=== PATIENT | female | born 1945 | race Hispanic/Latino ===

== ENCOUNTER 2018-08-15 12:20 | Emergency (ER) | payer MEDICARE ==
[~2018-08-15] VITALS: Ht 154.9 cm; Wt 56.7 kg
[~2018-08-15 12:20] MED LIST: ADULT LOW DOSE81 MG PO; AMARYL2 MG PO; FOLIC ACID0.4 MG PO; GLUCOPHAGE XR500 MG PO; LEVOXYL50 MCG PO; LOSARTAN POTASS25 MG PO; METHOTREXATE2.5 M1 PO; NORVASC10 MG PO; PLAQUENIL200 MG PO
[2018-08-15] MEDS ORDERED: SODIUM CHLORIDE 0.9% 1000ML 1,000 ML IV STA (13:32)
[2018-08-15 14:20] LABS: BASOPHILS % 0.4 % (0.0-1.0); EOSINOPHILS # (AUTO) 0.1 (0.0-0.4); EOSINOPHILS % 0.9 % (0.0-6.0); HEMOGLOBIN 12.1 g/dL (12.0-16.0); LYMPHOCYTES # (AUTO) 1.1 (1.0-3.2); LYMPHOCYTES % 10.6 % (18.0-39.1); MEAN CORPUSCULAR HEMOGLOBIN 31.2 pg (28-32); MEAN CORPUSCULAR HGB CONC 34.6 g/dL (31-35); MEAN CORPUSCULAR VOLUME 90.2 fL (81-99); MONOCYTES # (AUTO) 0.7 (0.2-0.8); MONOCYTES % 7.5 % (4.4-11.3); NEUTROPHILS # (AUTO) 7.9 (2.1-6.9); NEUTROPHILS % 79.4 % (38.7-80.0); PLATELET COUNT 351 x10e3/uL (140-360); RED BLOOD COUNT 3.88 x10e6/uL (3.6-5.1); RED CELL DISTRIBUTION WIDTH 13.2 % (11.7-14.4)
[2018-08-15 14:24] LABS: INR 0.9; PARTIAL THROMBOPLASTIN TIME 24.6 seconds (23.8-35.5)
[2018-08-15 14:25] LABS: CLARITY,URINE SL CLOUDY (CLEAR); COLOR,URINE YELLOW (YELLOW)
[2018-08-15 14:26] LABS: BILIRUBIN,URINE NEGATIVE (NEGATIVE); KETONES,URINE NEGATIVE (NEGATIVE); LEUKOCYTE ESTERASE ,URINE TRACE (NEGATIVE); NITRITE,URINE NEGATIVE (NEGATIVE); PROTEIN,URINE DIPSTICK 1+ (NEGATIVE); URINE UROBILINOGEN 0.2 mg/dL (0.2 - 1)
[2018-08-15 14:35] LABS: ALANINE AMINOTRANSFERASE 69 IU/L (0-55); ALBUMIN 3.7 g/dL (3.5-5.0); ALBUMIN/GLOBULIN RATIO 1.1 (0.8-2.0); ALKALINE PHOSPHATASE 49 IU/L (40-150); AMYLASE 90 U/L (25-125); ANION GAP 12.8 mmol/L (8-16); BLOOD UREA NITROGEN 15 mg/dL (7-26); BUN/CREATININE RATIO 19 (6-25); CALCIUM 9.8 mg/dL (8.4-10.2); CARBON DIOXIDE 25 mmol/L (22-29); CHLORIDE 102 mmol/L (98-107); CREATININE, SERUM 0.77 mg/dL (0.57-1.11); EST GLOMERULAR FILTRATION RATE > 60 ML/MIN (60-); GLUCOSE 218 mg/dL (74-118); LIPASE 56 U/L (8-78); MAGNESIUM 1.8 MG/DL (1.3-2.1); POTASSIUM 3.8 mmol/L (3.5-5.1); SODIUM 136 mmol/L (136-145)
[2018-08-15 14:38] LABS: BACTERIA,URINE FEW /HPF; EPITHELIAL CELLS,URINE FEW /LPF; HYALINE CASTS 0-1 (0-1); WBC,URINE (MAN) 0-5 /HPF (0-5)
--- NOTE | 2018-08-15 16:18 | Diagnostic Imaging Report ---
EXAMINATION: CT of the chest, abdomen and pelvis with contrast. TECHNIQUE: Helical CT images of the chest, abdomen and pelvis were performed from the lung apices to the lesser trochanters after the intravenous administration of 150 cc of Isovue 300 and the oral administration of none. Coronal and sagittal reformatted images were obtained. Dose modulation, iterative reconstruction, and/or weight based adjustment of the mA/kV was utilized to reduce the radiation dose to as low as reasonably achievable. COMPARISON: None. CLINICAL HISTORY:Trauma, fall DISCUSSION: CHEST: LINES/TUBES: None. LUNGS AND AIRWAYS: Lung base atelectasis. PLEURA: The pleural spaces are clear. HEART AND MEDIASTINUM: The thyroid gland is normal. The heart and pericardium are within normal limits. LYMPH NODES: No significant mediastinal, hilar or axillary lymphadenopathy is seen. BONES AND SOFT TISSUES: No bony destructive lesions. No soft tissue abnormalities. ABDOMEN/PELVIS: HEPATOBILIARY:No focal hepatic lesions. No biliary ductal dilation. The gallbladder is normal. SPLEEN: No splenomegaly. PANCREAS: No focal masses or ductal dilatation. ADRENALS: No adrenal nodules. KIDNEYS/URETERS: 4 mm calculus in the right kidney. No obstruction. PELVIC ORGANS/BLADDER: The bladder is normal. PERITONEUM/RETROPERITONEUM: No free air or fluid. LYMPH NODES: No intra-abdominal,retroperitoneal, pelvic or inguinal lymphadenopathy. VESSELS: The celiac trunk,superior and inferior mesenteric and bilateral renal arteries are patent The portal, superior mesenteric and splenic veins are patent. GI TRACT: No distention or wall thickening. BONES AND SOFT TISSUES: Remote inferior endplate compression deformity of L1 degenerative anterolisthesis of L5 on S1. Lower lumbar facet arthrosis. Remote healed fracture of the left inferior and superior pubic ramus. IMPRESSION: No acute CT finding. Signed by: Dr. Sacha Richardson M.D. on 08/15/2018 4:15 PM
--- NOTE | 2018-08-15 16:31 | Diagnostic Imaging Report ---
Examination: CT head without contrast Clinical Indication: Fall with head injury. Technique: Transaxial noncontrast images from the skull base through the vertex were obtained. Sagittal and coronal reformatted images were done. Dose modulation, iterative reconstruction, and/or weight based adjustment of the mA/kV was utilized to reduce the radiation dose to as low as reasonably achievable. Comparison: Head CT performed January 13, 2014. Findings: Scalp: No abnormalities. Bones: Intact. No fractures. No blastic or lytic lesions. Brain sulci: Appropriate for patient's age. Ventricles: Normal in size and configuration. No hydrocephalus. Extra-axial space: No new acute hemorrhage. Interval resolution of previous left superior frontal sulcus subarachnoid hemorrhage. Parenchyma: No masses, hemorrhage, or acute or chronic cortical based vascular insults. Suprasellar region: No abnormalities. Craniocervical junction: The foramen magnum is patent. No Chiari one malformation. Incidental findings: Atherosclerotic calcification of the cavernous and supraclinoid internal carotid arteries. Impression: 1. No new acute intracranial hemorrhage. 2. Interval resolution of previous left superior frontal sulcus subarachnoid hemorrhage when compared to prior head CT performed January 13, 2014. Signed by: Dr. Donna Robledo M.D. on 08/15/2018 4:27 PM
--- NOTE | 2018-08-15 16:34 | Diagnostic Imaging Report ---
Examination: CT Face without Contrast History:Fall with facial injury Comparison studies: None Technique: Axial images were obtained through the maxillofacial region. Coronal and sagittal reconstructions obtained from the axial data. Dose modulation, iterative reconstruction, and/or weight based adjustment of the mA/kV was utilized to reduce the radiation dose to as low as reasonably achievable. Intravenous contrast: None Findings: Soft tissues: No abnormalities. Bones: No fractures or bony abnormalities. Orbits: Globes: Intact with bilateral slitlike with the lenses. Extra or intraconal abnormalities: None. Paranasal sinuses: Clear. Nasal cavity: Patent. No septal deviation. IMPRESSION: No fracture. Signed by: Dr. Donna Robledo M.D. on 08/15/2018 4:30 PM
[2018-08-15 17:10] VITALS: BP 151/71
[2018-08-15] MEDS ORDERED: SODIUM CHLORIDE 0.9% 50ML 50 ML ONE (22:35)
[2018-08-15] MEDS ORDERED: IOPAMIDOL 370 MG/ML 200 ML INFUS..BTL INJ ONE (22:35)
== END 2018-08-15 17:41 | disposition home or self-care (01) ==
LOC: ER 12:20
DX: S00.33XA Contusion of nose, initial encounter (principal); S70.01XA Contusion of right hip, initial encounter; S80.211A Abrasion, right knee, initial encounter; R10.9 Unspecified abdominal pain; W18.30XA Fall on same level, unspecified, initial encounter; Y92.512 Supermarket, store or market as the place of occurrence of the external cause
CPT/HCPCS: 36415; 70450; 70486; 71260; 74177; 80053; 81001; 82150; 83690; 83735; 85025; 85610; 85730; 99284; Q9967

== ENCOUNTER → 2019-10-23 | Day surgery (SDC) | payer MEDICARE ==
--- NOTE | 2019-10-21 10:15 | NUR ---
Checked patient's temperature via skin probe: 97.3F. Patient denies being out of the country or out of state in the last 14 days. Patient denies being around anyone who has been out of the country or out of state in the last 14 days. Patient denies being around anyone who has been exposed or diagnosed with romero virus in the last 14 days. Patient denies new onset fever, cough, or shortness of breath in the last 14 days.
[2019-10-21 11:54] LABS: BASOPHILS # (AUTO) 0.1 (0.0-0.1); BASOPHILS % 0.8 % (0.0-1.0); EOSINOPHILS # (AUTO) 0.1 (0.0-0.4); EOSINOPHILS % 1.4 % (0.0-6.0); HEMOGLOBIN 11.1 g/dL (12.0-16.0); LYMPHOCYTES # (AUTO) 1.8 (1.0-3.2); LYMPHOCYTES % 28.3 % (18.0-39.1); MEAN CORPUSCULAR HEMOGLOBIN 30.5 pg (28-32); MEAN CORPUSCULAR HGB CONC 33.6 g/dL (31-35); MEAN CORPUSCULAR VOLUME 90.7 fL (81-99); MONOCYTES # (AUTO) 0.4 (0.2-0.8); NEUTROPHILS # (AUTO) 3.9 (2.1-6.9); NEUTROPHILS % 62.3 % (38.7-80.0); PLATELET COUNT 289 x10e3/uL (140-360); RED BLOOD COUNT 3.64 x10e6/uL (3.6-5.1); RED CELL DISTRIBUTION WIDTH 12.7 % (11.7-14.4)
[2019-10-21 12:15] LABS: ALANINE AMINOTRANSFERASE 11 IU/L (0-55); ALBUMIN 3.7 g/dL (3.5-5.0); ALBUMIN/GLOBULIN RATIO 1.1 (0.8-2.0); ALKALINE PHOSPHATASE 41 IU/L (40-150); BLOOD UREA NITROGEN 12 mg/dL (7-26); BUN/CREATININE RATIO 18 (6-25); CALCIUM 9.6 mg/dL (8.4-10.2); CARBON DIOXIDE 21 mmol/L (22-29); CHLORIDE 106 mmol/L (98-107); CREATININE, SERUM 0.67 mg/dL (0.57-1.11); EST GLOMERULAR FILTRATION RATE > 60 ML/MIN (60-); GLUCOSE 102 mg/dL (74-118); SODIUM 136 mmol/L (136-145)
--- NOTE | 2019-10-21 16:35 | NUR ---
Dr. Espino notified of patient's allergy to shrimp. No new orders at this time.
[2019-10-23] VITALS (14 sets, daily range): BP systolic 119–156; BP diastolic 53–77
[~2019-10-23] VITALS: Ht 151.1 cm; Wt 38.6 kg
[~2019-10-23] MED LIST changes: +CALCIUM PO; +FAMOTIDINE20 MG PO; +FENTANYL CITRATE/PF 100MCG/2 ML INJ ONE; +HEPARIN SOD (PORCINE) 1000 UNIT/ML 30ML ONE; +HEPARIN SOD/SOD CHLORIDE 2,000 ML ONE; +IOPAMIDOL 300MG/ML 100 ML INFUS..BTL IV ONE; +LIDOCAINE HCL 2% LOCAL 20 ML VIAL ONE; +LOPERAMIDE2 MG PO; +METFORMIN HCL500 MG PO; +MIDAZOLAM HCL 2 MG/2 ML VIAL ONE; +MUPIROCIN22 GM TOP; +NITROGLYCERIN/D5W 200 MCG/ML 250 ML ONE; +OYSTER SHELL C1 EA12 PO; +SODIUM CHLORIDE 0.9% 1000ML 1,000 ML ONE; +TYLENOL EXTRA500 MG PO; +VITAMIN D32000 UNI2 PO
--- OUTSIDE RECORDS SUMMARY | 2019-10-23 06:37 | XMS REPORT ---
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 Allergies, Adverse Reactions, Alerts This patient has no known allergies or adverse reactions. Medications This patient has no known medications. Results Test Description Test Time Test Comments Text Results Atomic Results Result Comments CT ABDOMEN/PELVIS W 2018-08-15 16:37:00 [place] [address] Patient Name: LANI LITTLE MR #: [id number] : 1945 Age/Sex: 73/F Req #: [id number] Adm Physician: Ordered by: SHATNHI GRAY MD Report #: [id number] Location: ER Room/Bed: Procedure: [id number] CT/CT ABDOMEN/PELVIS W Exam Date: 08/15/18 Exam Time: 1520 REPORT STATUS: Signed EXAMINATION: CT of the chest, abdomen and pelvis with daniel balbuena. TECHNIQUE: Helical CT images of the chest, abdomen and pelvis were performed from the lung apices to the lesser trochanters after the intravenous administration of 150 cc of Isovue 300 and the oral administration of none. Coronal and sagittal reformatted images were obtained. Dose modulation, iterative reconstruction, and/or weight based adjustment of the mA/kV was utilized to reduce the radiation dose to as low as reasonably achievable. COMPARISON: None. CLINICAL HISTORY:Trauma, fall DISCUSSION: CHEST: LINES/TUBES: None. LUNGS AND AIRWAYS: Lung base atelectasis. PLEURA: The pleural spaces are clear. HEART AND MEDIASTINUM: The thyroid gland is normal. The heart and pericardium are within normal limits. LYMPH NODES: No significant mediastinal, hilar or axillary lymphadenopathy is seen. BONES AND SOFT TISSUES: No bony destructive lesions. No soft tissue abnormalities. ABDOMEN/PELVIS: HEPATOBILIARY:No focal hepatic lesions. No biliary ductal dilation. The gallbladder is normal. SPLEEN: No splenomegaly. PANCREAS: No focal masses or ductal dilatation. ADRENALS: No adrenal nodules. KIDNEYS/URETERS: 4 mm calculus in the right kidney. No obstruction. PELVIC ORGANS/BLADDER: The bladder is normal. PERITONEUM/RETROPERITONEUM: No free air or fluid. LYMPH NODES: No intra-abdominal,retroperitoneal, pelvic or inguinal lymphadenopathy. VESSELS: The celiac trunk,superior and inferior mesenteric and bilateral renal arteries are patent The portal, s uperior mesenteric and splenic veins are patent. GI TRACT: No distention or wall thickening. BONES AND SOFT TISSUES: Remote inferior endplate compression deformity of L1 degenerative anterolisthesis of L5 on S1. Lower lumbar facet arthrosis. Remote healed fracture of the left inferior and superior pubic ramus. IMPRESSION: No acute CT finding. Signed by: Dr. Ameena Aguirre M.D. on 08/15/2018 4:38 PM Dictated By: AMEENA AGUIRRE MD 1638 Transcribed By: JILLIAN on 08/15/18 1638 COPY TO: SHANTHI GRAY MD CT MAXIO FAC/PARANAS WO 2018-08-15 16:28:00 [place] [address] Patient Name: ALNI LITTLE MR #: [id number] : 1945 Age/Sex: 73/F Req #: [id number] Adm Physician: Ordered by: SHANTHI GRAY MD Report #: [id number] Location: ER Room/Bed: Procedure: [id number] CT/CT MAXIO FAC/PARANAS WO Exam Date: 08/15/18 Exam Time: 1520 REPORT STATUS: Signed Examination: CT Face without Contrast History:Fall with facial injury Comparison studies: None Technique: Axial images were obtained through the maxillofacial region. Coronal and sagittal reconstructions obtained from the axial data. Dose modulation, iterative reconstruction, and/or weight based adjustment of the mA/kV was utilized to reduce the radiation dose to as low as reasonably achievable. Intravenous contrast: None Findings: Soft tissues: No abnormalities. Bones: No fractures or bony abnormalities. Orbits: Globes: Intact with bilateral slitlike with the lenses. Extra or intraconal abnormalities: None. Paranasal sinuses: Clear. Nasal cavity: Patent. No septal deviation. IMPRESSION: No fracture. Signed by: Dr. Donna Pemberton M.D. on 08/15/2018 4:30 PM Dictated By: DONNA ADAMS MD 1630 Transcribed By: JILLIAN on 08/15/18 1630 COPY TO: SHANTHI GRAY MD CT BRAIN WO 2018-08-15 16:23:00 [place] [address] Patient Name: LANI LITTLE MR #: [id number] : 1945 Age/Sex: 73/F Req #: [id number] Adm Physician: Ordered by: SHANTHI GRAY MD Report #: [id number] Location: Room/Bed: Procedure: [id number] CT/CT BRAIN WO Exam Date: 08/15/18 Exam Time: 1520 REPORT STATUS: Signed Examination: CT head without contrast Clinical Indication: Fall with head injury. Technique: Transaxial noncontrast images from the skull base through the vertex were obtained. Sagittal and coronal reformatted images were done. Dose modulation, iterative reconstruction, and/or weight based adjustment of the mA/kV was utilized to reduce the radiation dose to as low as reasonably achievable. Comparison: Head CT performed January 13, 2014. Findings: Scalp: No abnormalities. Bones: Intact. No fractures. No blastic or lytic lesions. Brain sulci: Appropriate for patient's age. Ventricles: Normal in size and configuration. No hydrocephalus. Extra- axial space: No new acute hemorrhage. Interval resolution of previous left superior frontal sulcus subarachnoid hemorrhage. Parenchyma: No masses, hemorrhage, or acute or chronic cortical based vascular insults. Suprasellar region: No abnormalities. Craniocervical junction: The foramen magnum is patent. No Chiari one malformation. Incidental findings: Atherosclerotic calcification of the cavernous and supraclinoid internal carotid arteries. Impression: 1. No new acute intracranial hemorrhage. 2. Interval resolution of previous left superior frontal sulcus subarachnoid hemorrhage when compared to prior head CT performed January 13, 2014. Signed by: Dr. Donna Pemberton M.D. on 08/15/2018 4:27 PM Dictated By: DONNA ADAMS MD 1627 Transcribed By: JILLIAN on 08/15/18 1627 COPY TO: SHANTHI GRAY MD CT CHEST W 2018-08-15 16:04:00 [place] [address] Patient Name: LANI LITTLE MR #: [id number] : 1945 Age/Sex: 73/F Req #: [id number] Adm Physician: Ordered by: SHANTHI GRAY MD Report #: [id number] Location: Room/Bed: Procedure: [id number] CT/CT CHEST W Exam Date: 08/15/18 Exam Time: 1520 REPORT STATUS: Signed EXAMINATION: CT of the chest, abdomen and pelvis with contrast. TECHNIQUE: Helical CT images of the chest, abdomen and pelvis were performed from the lung apices to the lesser trochanters after the intravenous administration of 150 cc of Isovue 300 and the oral administration of none. Coronal and sagittal reformatted images were obtained. Dose modulation, iterative reconstruction, and/or weight based adjustment of the mA/kV was utilized to reduce the radiation dose to as low as reasonably achievable. COMPARISON: None. CLINICAL HISTORY:Trauma, fall DISCUSSION: CHEST: LINES/TUBES: None. LUNGS AND AIRWAYS: Lung base atelectasis. PLEURA: The pleural spaces are clear. HEART AND MEDIASTINUM: The thyroid gland is normal. The heart and pericardium are within normal limits. LYMPH NODES: No significant mediastinal, hilar or axillary lymphadenopathy is seen. BONES AND SOFT TISSUES: No bony destructive lesions. No soft tissue abnormalities. ABDOMEN/PELVIS: HEPATOBILIARY:No focal hepatic lesions. No biliary ductal dilation. The gallbladder is normal. SPLEEN: No splenomegaly. PANCREAS: No focal masses or ductal dilatation. ADRENALS: No adrenal nodules. KIDNEYS/URETERS: 4 mm calculus in the right kidney. No obstruction. PELVIC ORGANS/BLADDER: The bladder is normal. PERITONEUM/RETROPERITONEUM: No free air or fluid. LYMPH NODES: No intra-abdominal,retroperitoneal, pelvic or inguinal lymphadenopathy. VESSELS: The celiac trunk,superior and inferior mesenteric and bilateral renal arteries are patent The portal, superior mesenteric and splenic veins are patent. GI TRACT: No distention or wall thickening. BONES AND SOFT TISSUES: Remote inferior endplate compression deformity of L1 degenerative anterolisthesis of L5 on S1. Lower lumbar facet arthrosis. Remote healed fracture of the left inferior and superior pubic ramus. IMPRESSION: No acute CT finding. Signed by: Dr. Ameena Aguirre M.D. on 08/15/2018 4:15 PM Dictated By: AMEENA AGUIRRE MD 1611 Transcribed By: JILLIAN on 08/15/18 1613 COPY TO: SHANTHI GRAY MD
--- NOTE | 2019-10-23 08:30 | NUR ---
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 Received pt to rm #9, Identiferx2. Report from GUILLERMO Desir. Ox4, back to baseline orientation. Respiration shallow and regular on room air. V/S stable Monitor stable. Extremities warm to touch. Rt groin dressing dry and intact.Pedal pulses PT/DP minimal rt foot .Cap fill brisk < 3 sec. Preprocedural access: right groin site. Downtime 1pm.dc home at 2pm significant other aware to be at turn around in front of hospiital 145pm. No gross issues pain,pallor,pressure or dysthymia. Skin warm and dry integrity appears D/I.. IV 20g to left handt 100cche via conroller. Presents healthy w/o s/s of infiltration or complaint. Abdomen soft and supple. pt offered toileting, denies need to urinate or defecate. No personal affects with patient.Bagged clothes at BS and labeled. No Family, Ricca phoned and notified of Pickup time per pt. Pt verbalizes understanding of POC. Currently w/o complaint of pain or need. ds/rn
--- NOTE | 2019-10-23 10:39 | Operative Report ---
DATE OF PROCEDURE: 10/23/2019 SURGEON: Rui Espino MD INDICATION: Peripheral arterial disease, critical limb ischemia urgent procedure, [place] 6. PROCEDURES PERFORMED: 1. Abdominal aortogram. 2. Bilateral lower extremity angiograms. 3. Third-order catheter placement in the right femoral artery to left superficial femoral artery. COMPLICATIONS: None. RECOMMENDATIONS: Unable to intervene surgically or endovascular due to severe obstructive peripheral arterial disease. DESCRIPTION OF PROCEDURE: Access was obtained in the right femoral artery. A 6-[place] sheath was placed. Abdominal aortogram demonstrated mild disease, abdominal aorta bilateral femoral arteries, bilateral popliteal arteries occluded, very trivial runoff from the and highly diseased peroneal artery. No targets for intervention. Sheath removed under manual pressure. The patient discharged home same day. Rui Espino MD KSB/MODL /[id number]
--- NOTE | 2019-10-23 14:00 | NUR ---
1400pm LABEL CODER RECOVERY DISCHARGE NURSING NOTE Pt meets DC criteria. Rt groin assessed for s/s of complication and presence of hematoma. Skin warm, dry, no discolor, and pulses present. IV removed form rt hand. Distal tip appears intact. VS WNL. Pt denies pain, sob, or need at this time.Significant other at bedside at [facility] emergency department and dc teaching done. Review of discharge paperwork and follow up instructions. verbalized understanding. Pt to wheelchair and transported to front of hospital. Transferred to private vehicle under own strength w/o incident with DC paperwork in hand. - ds/rn
== END | disposition home or self-care (01) ==
LOC: CATH LAB 06:20
PROVIDERS: ATTEND Internal Medicine Interventional Cardiology
DX: I70.203 Unspecified atherosclerosis of native arteries of extremities, bilateral legs (principal); E11.52 Type 2 diabetes mellitus with diabetic peripheral angiopathy with gangrene; E11.621 Type 2 diabetes mellitus with foot ulcer; I99.8 Other disorder of circulatory system; Z88.1 Allergy status to other antibiotic agents; Z79.84 Long term (current) use of oral hypoglycemic drugs; Z82.49 Family history of ischemic heart disease and other diseases of the circulatory system; Z83.3 Family history of diabetes mellitus
CPT/HCPCS: 36200; 36415; 75625; 75716; 80053; 85025; C1769 ×2; J1644; J2001; J2250; J3010; J7030; Q9967; 75630; 99152; 99153

== ENCOUNTER 2020-01-22 15:35 | Inpatient (IN) | payer MEDICARE, OTHER ==
[~2020-01-22] VITALS: Ht 151.1 cm; Wt 38.6 kg
[~2020-01-22 15:35] MED LIST changes: -FENTANYL CITRATE/PF 100MCG/2 ML INJ ONE; -HEPARIN SOD (PORCINE) 1000 UNIT/ML 30ML ONE; -HEPARIN SOD/SOD CHLORIDE 2,000 ML ONE; -IOPAMIDOL 300MG/ML 100 ML INFUS..BTL IV ONE; -LIDOCAINE HCL 2% LOCAL 20 ML VIAL ONE; -MIDAZOLAM HCL 2 MG/2 ML VIAL ONE; -NITROGLYCERIN/D5W 200 MCG/ML 250 ML ONE; -SODIUM CHLORIDE 0.9% 1000ML 1,000 ML ONE
[2020-01-23] VITALS (9 sets, daily range): BP systolic 92–121; BP diastolic 43–81
[2020-01-23] MEDS ORDERED: DEXTROSE 50% SYRINGE 50 ML IV PRN (00:30)
--- NOTE | 2020-01-23 01:00 | NUR ---
Patient is a new admission that arrived via EMS. patient is awake and talking. patient has been transferred into the bed. bed is in the lowest position and call rosales is within reach. will continue to monitor patient.
[2020-01-23] MEDS: LEVOFLOXACIN 500 MG TAB PO SCH ×2 (02:30→23:25)
[2020-01-23] MEDS: HYDROCODONE/APAP 10MG-325MG TAB PO PRN ×4 (02:30→22:31)
[2020-01-23 02:43] LABS: BASOPHILS % 0.6 % (0.0-1.0); EOSINOPHILS # (AUTO) 0.2 (0.0-0.4); EOSINOPHILS % 3.3 % (0.0-6.0); HEMATOCRIT 24.5 % (34.2-44.1); LYMPHOCYTES # (AUTO) 1.4 (1.0-3.2); LYMPHOCYTES % 21.5 % (18.0-39.1); MEAN CORPUSCULAR HEMOGLOBIN 30.1 pg (28-32); MEAN CORPUSCULAR HGB CONC 32.7 g/dL (31-35); MEAN CORPUSCULAR VOLUME 92.1 fL (81-99); MONOCYTES # (AUTO) 0.7 (0.2-0.8); MONOCYTES % 10.9 % (4.4-11.3); NEUTROPHILS # (AUTO) 4.3 (2.1-6.9); NEUTROPHILS % 63.4 % (38.7-80.0); PLATELET COUNT 523 x10e3/uL (140-360); RED BLOOD COUNT 2.66 x10e6/uL (3.6-5.1); RED CELL DISTRIBUTION WIDTH 14.5 % (11.7-14.4)
[2020-01-23 03:02] LABS: ALANINE AMINOTRANSFERASE 8 IU/L (0-55); ALBUMIN 2.4 g/dL (3.5-5.0); ALBUMIN/GLOBULIN RATIO 0.5 (0.8-2.0); ALKALINE PHOSPHATASE 54 IU/L (40-150); ANION GAP 10.3 mmol/L (8-16); BLOOD UREA NITROGEN 5 mg/dL (7-26); BUN/CREATININE RATIO 9 (6-25); CARBON DIOXIDE 25 mmol/L (22-29); CHLORIDE 103 mmol/L (98-107); CREATININE, SERUM 0.57 mg/dL (0.57-1.11); EST GLOMERULAR FILTRATION RATE > 60 ML/MIN (60-); GLUCOSE 109 mg/dL (74-118); POTASSIUM 3.3 mmol/L (3.5-5.1); SODIUM 135 mmol/L (136-145)
--- NOTE | 2020-01-23 06:23 | NUR ---
spoke with doctor Baptiste regarding consult.
--- NOTE | 2020-01-23 06:44 | NUR ---
report given t to day nurse. patient is resting comfortably in bed, bed is low position and call light is within reach.
--- NOTE | 2020-01-23 07:00 | NUR ---
RECEIVED PATIENT AWAKE RESTING IN BED NO S/S OF DISTRESS. BED LOW, WHEELS LOCKED, SIDE RAILS X2. CALL LIGHT IN REACH WILL CONTINUE TO MONITOR PATIENT.
[2020-01-23] MEDS: INSULIN LISPRO 100 UNIT/1 ML 3ML VIAL SQ SCH ×4 (07:30→21:00)
[2020-01-23] MEDS: LOSARTAN POTASSIUM 100 MG TAB PO SCH (09:00)
[2020-01-23] MEDS ORDERED: APIXAB 2.5 MG TABLET PO SCH (09:00)
[2020-01-23] MEDS: ASPIRIN 81 MG ENTERIC COATED PO SCH (09:22)
[2020-01-23] MEDS: PREGABALIN 50 MG CAP PO SCH ×2 (09:22→22:26)
[2020-01-23] MEDS: FOLIC ACID 1 MG TAB PO SCH ×2 (09:22→16:50)
[2020-01-23] MEDS: CLOPIDOGREL BISULFATE 75 MG TAB PO SCH (09:22)
--- NOTE | 2020-01-23 09:29 | History and Physical ---
HISTORY OF PRESENT ILLNESS: This 74-year-old female, who was admitted through the [facility] for status post femoropopliteal bypass and also status post TMA. The patient, however, has continual pain and the patient is admitted to the hospital for possible BKA. PAST MEDICAL HISTORY: History of hypertension, history of hyperlipidemia, history of diabetes mellitus, history of rheumatoid arthritis, history of peripheral arterial dizziness. SOCIAL HISTORY: No EtOH. No IV drug abuse. No history of smoking. MEDICATIONS: She takes at home: 1. Tylenol Extra Strength 500 mg 2 tablets every 6 hours. 2. Amlodipine 10 mg daily. 3. Calcium daily. 4. Vitamin D3. 5. Famotidine 20 mg daily. 6. Folic acid 1 mg b.i.d. 7. Loperamide 2 mg daily as needed. 8. Losartan 25 mg. 9. Metformin 500 mg at bedtime. 10. Mupirocin 22 g ointment as needed twice a day. PAST SURGICAL HISTORY: History of TMA, history of femoropopliteal bypass, and no other surgical history. ALLERGIES: ALLERGIC TO TUNA, ENALAPRIL, SHRIMP, SULFAMETHOXAZOLE, AND TRIMETHOPRIM. REVIEW OF SYSTEMS: Negative for chest pain. No shortness of breath. No nausea, vomiting, or diarrhea. No constipation. No rectal bleeding. No hematochezia. No hematemesis. Positive for pain in the lower back and also a sacral wound pain. PHYSICAL EXAMINATION: GENERAL: The patient is alert and oriented x3, in good spirits. VITAL SIGNS: Temperature is 98.6, pulse of 98, respirations of 19, blood pressure is 106/61, pulse oximetry of 100% on room air. HEENT: Normocephalic, atraumatic. Pupils are reactive. CVS: S1 and S2 normal. ABDOMEN: Soft. LUNGS: Clear to auscultation. EXTREMITIES: Decreased pulses in the left lower extremities. Positive for TMA, status post covered up right lower extremity, decreased pulses, too cachectic. The patient has malnutrition. LABORATORY VALUES: White count of 6.71, hemoglobin of 8.0, hematocrit 24.5, RDW is 14.5. Chemistry; sodium 135, potassium is 3.3, BUN of 5, albumin is 2.4. Serology; coronavirus is pending. ASSESSMENT: Ms. Aniyah Hernandez with: 1. Peripheral arterial disease with cellulitis of left lower extremity, on Levaquin. The patient needs a below-knee amputation, to be evaluated by Surgery. 2. Severe malnutrition. Nutrition consult. 3. Sacral wound ulcer, present on admission. Continue with wound care and need of wound care consult. 4. Diabetes mellitus. 5. Hyperlipidemia. 6. Hypertension. 7. Status post transmetatarsal amputation. PLAN: Again a consult with Dr. Baptiste has been done. We will continue to monitor the patient. Possible BKA on Saturday. Coronavirus is still pending. Further recommendation per clinical course. Again, consults with Surgery, consult with Nutrition, consult with Wound Care. MD ANIL Anderson/MODL /[id number]
--- NOTE | 2020-01-23 15:07 | NUR ---
Nutrition Intervention Note RD Recommendation(s) for Physician: - Continue current diet as ordered - Recommend Ensure Enlive with meals for added nutrition and to promote weight gain The patient meets criteria for unspecified SEVERE protein-calorie malnutrition. Plan of Care: RD following, monitoring for tolerance and adequacy, oral supplement recommendation Nutrition reason for involvement: consult RD Assessment (01/23/20) Pt is a 74 year old female admitted with gangrene foot s/p TMA. Pt reports she has been eating <50% of meals for the past 6 months. Pt mentioned she usually drinks 3 nutrition supplements/day. Pt also declared she had lost weight and used to weigh about 105 lbs a year ago. Pt currently weighs 85 lbs. If accurate, this would be ~20% weight loss in 1 year which is considered to be significant weight loss. No N/V reported. Pt is currently on a regular diet. Recommend Ensure Enlive with meals for added nutrition. Will continue to monitor. Principal Problems/Diagnoses: gangrene foot s/p TMA PMH: hypertension, hyperlipidemia, diabetes, rheumatoid arthritis, peripheral artery disease GI: soft, non-tender round abdomen Skin: sacral wound Labs: (01/23/20) Na 135, K 3.3, BUN 5, Cr 0.57, Glu 109, Ca 9.0 Meds: folic acid, levaquin, insulin lispro, losartan, colace, lipitor Ht: 59.5 inches Wt: 85 lbs BMI: 16.9 kg/m2 (underweight) IBW: 99 lbs Malnutrition Evaluation (01/23/20) The patient meets criteria for unspecified SEVERE protein-calorie malnutrition. Energy intake: <75% of estimated energy requirements for >3 months Weight loss: 20% in 1 year (Chronic) Fat loss: Severe - tricep Muscle loss: Severe lower extremities Supporting Evidence: Fluid accumulation: unable to evaluate Functional Status: unable to evaluate Nutrition Prescription (Diet Order): regular Estimated Nutritional Needs: 7899-6703 calories/day (30-35 kcal/kg CBW) 58-77 g protein/day (1.5-2 g pro/kg CBW) Diet Adequacy: Not meeting calorie needs, Not meeting protein needs Tolerance: Tolerating PO Diet Education Needs Assessment: Diet education not indicated Nutrition Care Level: high Nutrition Diagnosis: Severe malnutrition related to h/o inadequate intake as evidenced by pt meeting <75% of estimated energy needs for > 1 month, 20% weight loss in 1 year, and severe muscle and fat depletion. Goal: Patient will meet 75-100% of estimated needs by follow up Progress: N/A Interventions: -General, healthful diet, Commercial beverage Monitoring/Evaluation: -Total energy intake, Total protein intake, Liquid supplement, Weight change Signed: Gina Knowles RD, LD
[2020-01-23] MEDS: AMLODIPINE BESYLATE 10 MG TAB PO SCH (16:50)
--- NOTE | 2020-01-23 17:38 | NUR ---
SPOKE WITH DR. Carlie RUIZ. HOLD ELIQUIS STARTING TOMORROW MORNING PENDING SURGERY. TYPE AND SCREEN ADDED ON TO TOMORROW MORNING LABS. NEW ORDERS IMPLEMENTED.
[2020-01-23] MEDS ORDERED: POTASSIUM CHLORIDE 20 MEQ TAB CR PO NR (17:45)
[2020-01-23] MEDS ORDERED: AMLODIPINE BESYLATE 10 MG TAB PO SCH (21:00)
[2020-01-23] MEDS: ATORVASTATIN 20 MG TAB PO SCH (22:26)
[2020-01-24] VITALS (9 sets, daily range): BP systolic 107–122; BP diastolic 52–70
[2020-01-24] MEDS: HYDROCODONE/APAP 10MG-325MG TAB PO PRN ×4 (02:45→19:30)
--- NOTE | 2020-01-24 06:51 | NUR ---
report given to day nurse. patient is resting in bed. bed is in lowest position and call light is within reach.
[2020-01-24 07:01] LABS: ANION GAP 10.1 mmol/L (8-16); BLOOD UREA NITROGEN 7 mg/dL (7-26); BUN/CREATININE RATIO 13 (6-25); CALCIUM 9.4 mg/dL (8.4-10.2); CARBON DIOXIDE 25 mmol/L (22-29); CHLORIDE 107 mmol/L (98-107); CREATININE, SERUM 0.54 mg/dL (0.57-1.11); EST GLOMERULAR FILTRATION RATE > 60 ML/MIN (60-); GLUCOSE 99 mg/dL (74-118); POTASSIUM 4.1 mmol/L (3.5-5.1); SODIUM 138 mmol/L (136-145)
[2020-01-24] MEDS: INSULIN LISPRO 100 UNIT/1 ML 3ML VIAL SQ SCH ×4 (07:30→23:07)
[2020-01-24] MEDS: CLOPIDOGREL BISULFATE 75 MG TAB PO SCH (09:00)
[2020-01-24] MEDS: ASPIRIN 81 MG ENTERIC COATED PO SCH (09:02)
[2020-01-24] MEDS: FOLIC ACID 1 MG TAB PO SCH ×2 (09:02→16:18)
[2020-01-24] MEDS: LOSARTAN POTASSIUM 100 MG TAB PO SCH (09:03)
[2020-01-24] MEDS: PREGABALIN 50 MG CAP PO SCH ×2 (09:05→21:36)
--- NOTE | 2020-01-24 09:43 | Progress Note ---
DATE: SUBJECTIVE: The patient is in room 205, came in with left TMA, seen by surgery. Recommendation is left above knee amputation. Currently, the patient is stable and cachectic. OBJECTIVE: VITAL SIGNS: Temperature 98.4, pulse of 96, respirations of 18, blood pressure is 109/65, pulse oximetry of 100%. HEENT: Atraumatic, normocephalic. Pupils reactive. CVS: S1 and S2 normal. CHEST: Very frail. ABDOMEN: Scaphoid abdomen. EXTREMITIES: No clubbing, cyanosis and emaciated and cachectic looking. LABORATORY VALUES: White count from January 22 is normal 6.71. Chemistries from today, sodium 138, potassium 4.1, BUN of 7, creatinine of 0.54, calcium 9.4. ASSESSMENT: Ms. Aniyah Hernandez with: 1. Peripheral arterial disease with cellulitis on Levaquin. 2. Severe malnutrition. 3. Diabetes mellitus. 4. Hyperlipidemia. 5. Hypertension, status post transmetatarsal amputation and also recent femoral-popliteal by Dr. Tolbert. PLAN: Proceed with surgery on Saturday, coronavirus serology is still pending. Further recommendation per clinical course. We will continue to monitor the patient. MD ANIL Anderson/MODL /[id number]
[2020-01-24] MEDS ORDERED: SODIUM CHLORIDE 0.9% 250ML 250 ML IV NR (09:45)
--- NOTE | 2020-01-24 11:16 | NUR ---
blood transfusion started. no reaction at 15min corinne.
--- NOTE | 2020-01-24 14:07 | NUR ---
blood done transfusing with no reaction. vitals stable with no distress.
[2020-01-24] MEDS: AMLODIPINE BESYLATE 10 MG TAB PO SCH (16:18)
[2020-01-24] MEDS ORDERED: POLYETHYLENE GLYCOL 3350 17 GM PACK PO PRN (17:00)
[2020-01-24] MEDS: ATORVASTATIN 20 MG TAB PO SCH (21:36)
[2020-01-24] MEDS: LEVOFLOXACIN 500 MG TAB PO SCH (23:45)
[2020-01-25] VITALS: BP 121/67
[2020-01-25] MEDS: HYDROCODONE/APAP 10MG-325MG TAB PO PRN (00:45)
[2020-01-25 04:00] VITALS: BP 122/62
[2020-01-25 06:45] LABS: BASOPHILS % 0.6 % (0.0-1.0); EOSINOPHILS # (AUTO) 0.3 (0.0-0.4); EOSINOPHILS % 4.1 % (0.0-6.0); HEMATOCRIT 29.2 % (34.2-44.1); HEMOGLOBIN 9.3 g/dL (12.0-16.0); LYMPHOCYTES # (AUTO) 1.3 (1.0-3.2); LYMPHOCYTES % 19.8 % (18.0-39.1); MEAN CORPUSCULAR HEMOGLOBIN 29.3 pg (28-32); MEAN CORPUSCULAR HGB CONC 31.8 g/dL (31-35); MEAN CORPUSCULAR VOLUME 92.1 fL (81-99); MONOCYTES # (AUTO) 0.6 (0.2-0.8); MONOCYTES % 9.1 % (4.4-11.3); NEUTROPHILS # (AUTO) 4.5 (2.1-6.9); NEUTROPHILS % 66.1 % (38.7-80.0); PLATELET COUNT 517 x10e3/uL (140-360); RED BLOOD COUNT 3.17 x10e6/uL (3.6-5.1); RED CELL DISTRIBUTION WIDTH 14.6 % (11.7-14.4)
--- NOTE | 2020-01-25 07:00 | NUR ---
Patient condition throughout the night was stable, patient endorsed to next shift for continuity of care.
[2020-01-25 07:08] LABS: ANION GAP 10.6 mmol/L (8-16); BLOOD UREA NITROGEN 16 mg/dL (7-26); BUN/CREATININE RATIO 26 (6-25); CARBON DIOXIDE 28 mmol/L (22-29); CHLORIDE 102 mmol/L (98-107); CREATININE, SERUM 0.61 mg/dL (0.57-1.11); EST GLOMERULAR FILTRATION RATE > 60 ML/MIN (60-); GLUCOSE 173 mg/dL (74-118); POTASSIUM 4.6 mmol/L (3.5-5.1); SODIUM 136 mmol/L (136-145)
[2020-01-25] MEDS: INSULIN LISPRO 100 UNIT/1 ML 3ML VIAL SQ SCH ×4 (07:30→22:35)
[2020-01-25 08:00] VITALS: BP 108/55
[2020-01-25] MEDS: FOLIC ACID 1 MG TAB PO SCH ×2 (09:00→17:00)
[2020-01-25] MEDS: LOSARTAN POTASSIUM 100 MG TAB PO SCH (09:00)
[2020-01-25] MEDS: ASPIRIN 81 MG ENTERIC COATED PO SCH (09:00)
[2020-01-25] MEDS: CLOPIDOGREL BISULFATE 75 MG TAB PO SCH (09:00)
[2020-01-25] MEDS: PREGABALIN 50 MG CAP PO SCH ×2 (09:00→22:01)
--- NOTE | 2020-01-25 09:38 | NUR ---
PT TO OR VIA BED. BATH GIVEN THIS AM AND PT REMAINS NPO SINCE MN.
[2020-01-25] MEDS ORDERED: NEOSTIGMINE 1 MG/ML 10ML VIAL ONE (12:15)
[2020-01-25] MEDS ORDERED: BACITRACIN ZINC 15 GM OINT ONE (12:16)
[2020-01-25] MEDS ORDERED: HYDROMORPHONE 1MG/1ML INJ ONE (12:45)
--- NOTE | 2020-01-25 14:00 | NUR ---
PT BACK FROM SURGERY AT THIS TIME. DRSG CD&I TO LT STUMP. NO COMPLAIN OF PAIN AT THIS TIME.
[2020-01-25] MEDS ORDERED: PHENYLEPHRINE HCL 1% 10 MG/ML VIAL ONE (14:15)
[2020-01-25] MEDS ORDERED: ONDANSETRON HCL INJ 2MG/ML 2ML 2 MG/ML VIAL ONE (14:15)
[2020-01-25] MEDS ORDERED: PROPOFOL IV EMULSION 10 MG/ML 20 ML VIAL ONE (14:15)
[2020-01-25] MEDS ORDERED: SEVOFLURANE INHAL SOLN 250 ML PEN BTL ONE (14:15)
[2020-01-25] MEDS ORDERED: ETOMIDATE 2 MG/ML 10 ML INJ IV ONE (14:15)
[2020-01-25] MEDS ORDERED: LIDOCAINE HCL 2% LOCAL INJ 5 ML SDV VIAL INJ ONE (14:15)
--- NOTE | 2020-01-25 14:18 | Operative Report ---
DATE OF PROCEDURE: SURGEON: Carlos Enrique Baptiste MD PREOPERATIVE DIAGNOSES: Gangrene of the left foot, non-reconstructible, peripheral vascular disease, status post transmetatarsal amputation, status post peripheral bypass for gangrene of the left foot. PROCEDURE PERFORMED: Right [id number] amputation on the left. INDICATION AND FINDINGS: This is a very pleasant 74-year-old diabetic female with gangrene of the left foot. She had the previously described procedures and now presents with severe pain and gangrene of the left foot. In addition, the patient has several incisions on the left lower extremities as well as an ulcer in the posterior part of the calf. After a long discussion with her, it was decided to proceed [id number] amputation on this high-risk severely malnourished patient. She understood that no guarantees were made regarding surgical results. DESCRIPTION OF PROCEDURE: With the patient lying on the operative table in the supine position after an administration of general anesthesia, she was prepped and draped for repair [id number] amputation. We made flaps above the patella equal in lengths. The anterior and posterior flaps and the dissection was carried down through the skin and subcutaneous tissue. There was good blood flow to the muscle and once we found the femoral vessels, they were tied off with 0 silk and suture transfixed with 2-0 silk. The femoral nerve was transected and then tied with 2-0 Vicryl because it was oozing. This patient had been on Eliquis, then an aspirin and Plavix. We did that and after having transected the muscle groups in both the anterior, lateral, and medial and posterior compartments of the leg, we transected the femoral bone using Gigli saw. We beveled the surface of the femur bone so that the bone was not protruding and slanted backwards and superiorly. After we did that, we used wax to stop any bleeding from the bone and then we closed the stump in two layers using a combination of 0 Vicryl for both the muscles, which were used to cover the femur stump to give protection to the skin. Then, we approximated the fascia and closed over the muscle bulk of the leg with 0 Vicryl sutures also. Then, we closed the flaps with interrupted a combination of 3-0 and 2-0 silk. Sterile dressing was applied. The patient tolerated the procedure well, was taken to recovery room in stable condition. MD SRUTHI Painting/NICK /[id number]
[2020-01-25] MEDS ORDERED: MIDAZOLAM HCL 2 MG/2 ML VIAL ONE (14:59)
[2020-01-25] MEDS ORDERED: FENTANYL CITRATE/PF 100MCG/2 ML INJ ONE (14:59)
[2020-01-25 16:00] VITALS: BP 117/68
[2020-01-25] MEDS: SODIUM CHLORIDE 0.9% 1000ML 1,000 ML IV SCH (16:00)
[2020-01-25] MEDS: HYDROMORPHONE 1MG/1ML INJ IV PRN (16:00)
--- NOTE | 2020-01-25 16:30 | NUR ---
PT CO PAIN MEDICATED WITH DILAUDID ORDER EARLIER PT PAIN LEVEL IS DOWN NOW.
[2020-01-25] MEDS: AMLODIPINE BESYLATE 10 MG TAB PO SCH (17:00)
--- NOTE | 2020-01-25 18:45 | NUR ---
PT TRANSFER TO 113 ORDERED FROM SURGEON. REPORT GIVE TO LYNN LI
--- NOTE | 2020-01-25 19:00 | NUR ---
RECEIVED PATIENT IN BEDSIDE SHIFT REPORT. PATIENT RESTING IN BED AT THIS TIME. MILD-MODERATE PAIN REPORTED, BUT STATES IT IS GETTING BETTER WITH RECENTLY GIVEN PAIN MEDICATION. NO S&S OF DISTRESS NOTED. RUIZ DRAINING CLEAR, YELLOW URINE TO GRAVITY. STATLOCK PLACED AT THIS TIME TO THIGH, BAG HANGING ON SIDE OF BED, OFF OF FLOOR. DRESSING TO LLE C/D/I. NIK WRAP INTACT. NO DRAINAGE NOTED. IV TO L FA 20G RUNNING NS @ 75ML/HR. BED LOCKED IN LOWEST POSITION, SIDE RAIL UPX2, CALL LIGHT IN REACH.
[2020-01-25 20:00] VITALS: BP 143/67
[2020-01-25 20:51] VITALS: BP 143/67
[2020-01-25] MEDS: ATORVASTATIN 20 MG TAB PO SCH (22:01)
[2020-01-25] MEDS: HYDROCODONE/APAP 7.5MG-325MG 1 EA TAB PO PRN (22:02)
[2020-01-26] VITALS (7 sets, daily range): BP systolic 106–138; BP diastolic 40–98
[2020-01-26] MEDS: LEVOFLOXACIN 500 MG TAB PO SCH (00:01)
[2020-01-26] MEDS: ACETAMINOPHEN 325 MG TAB PO PRN (01:10)
[2020-01-26] MEDS: HYDROMORPHONE 1MG/1ML INJ IV PRN ×5 (01:18→20:51)
[2020-01-26] MEDS: SODIUM CHLORIDE 0.9% 1000ML 1,000 ML IV SCH (04:44)
--- NOTE | 2020-01-26 04:45 | NUR ---
PATIENT THOUGHT SHE HAD BM, JUST GAS. CHANGED DIAPER AND ALLEVYN PATCH TO SACRUM AT THIS TIME.
[2020-01-26 04:57] LABS: BASOPHILS % 0.2 % (0.0-1.0); EOSINOPHILS % 0.1 % (0.0-6.0); HEMATOCRIT 25.5 % (34.2-44.1); HEMOGLOBIN 8.3 g/dL (12.0-16.0); LYMPHOCYTES % 8.4 % (18.0-39.1); MEAN CORPUSCULAR HEMOGLOBIN 29.9 pg (28-32); MEAN CORPUSCULAR HGB CONC 32.5 g/dL (31-35); MEAN CORPUSCULAR VOLUME 91.7 fL (81-99); MONOCYTES # (AUTO) 0.9 (0.2-0.8); MONOCYTES % 7.4 % (4.4-11.3); NEUTROPHILS # (AUTO) 10.2 (2.1-6.9); NEUTROPHILS % 83.3 % (38.7-80.0); PLATELET COUNT 416 x10e3/uL (140-360); RED BLOOD COUNT 2.78 x10e6/uL (3.6-5.1); RED CELL DISTRIBUTION WIDTH 14.6 % (11.7-14.4)
[2020-01-26 05:15] LABS: ALANINE AMINOTRANSFERASE 7 IU/L (0-55); ALBUMIN 2.1 g/dL (3.5-5.0); ALBUMIN/GLOBULIN RATIO 0.5 (0.8-2.0); ALKALINE PHOSPHATASE 49 IU/L (40-150); ANION GAP 10.9 mmol/L (8-16); BLOOD UREA NITROGEN 7 mg/dL (7-26); BUN/CREATININE RATIO 13 (6-25); CALCIUM 8.7 mg/dL (8.4-10.2); CARBON DIOXIDE 24 mmol/L (22-29); CHLORIDE 103 mmol/L (98-107); CREATININE, SERUM 0.53 mg/dL (0.57-1.11); EST GLOMERULAR FILTRATION RATE > 60 ML/MIN (60-); GLUCOSE 164 mg/dL (74-118); MAGNESIUM 1.3 MG/DL (1.3-2.1); POTASSIUM 3.9 mmol/L (3.5-5.1); SODIUM 134 mmol/L (136-145)
[2020-01-26] MEDS: INSULIN LISPRO 100 UNIT/1 ML 3ML VIAL SQ SCH ×4 (07:55→20:53)
[2020-01-26] MEDS: PREGABALIN 50 MG CAP PO SCH ×2 (09:19→20:51)
[2020-01-26] MEDS: FOLIC ACID 1 MG TAB PO SCH ×2 (09:19→17:25)
[2020-01-26] MEDS: LOSARTAN POTASSIUM 100 MG TAB PO SCH (09:19)
[2020-01-26] MEDS: PSYLLIUM 6GM PACKET PO SCH (17:35)
[2020-01-26] MEDS: AMLODIPINE BESYLATE 10 MG TAB PO SCH (17:36)
--- NOTE | 2020-01-26 18:35 | NUR ---
Patient resting in bed, Alert with no distress, dressing on left thigh intact
--- NOTE | 2020-01-26 18:52 | NUR ---
WOUND CARE INITIAL CONSULT FOR 74 YO FEMALE ADMITTED TO [facility] FOR GANGRE FOOT S/P TMA. RAINA 16 ON MODERATE PUP STATUS AND INTERVENTIONS LABS: WBC- 12.24 HGB- 164 MEDS-LEVAQUIN. 1)SKIN ASSESSMENT COMPLETE, PATIENT PRESENTS WITH A BKA TO LLE COMPLETED BY DR. RUIZ. DRESSING TO LLE C/D/I. NIK WRAP INTACT. NO DRAINAGE NOTED. 2)SACRAL STAGE II PRESSURE ULCER MEASURING 0.4 CM X 0.4 CM X 0.3CM; 90% PINK GRANULATION AND 10% YELLOW SLOUGH. PINK PERIWOUND; MINIMAL SEROUS SANGUINOUS DRAINAGE. RECOMMENDATIONS: NURSING TO CLEAN SACRAL STAGE II PRESSURE ULCER WITH NORMAL SALINE, PAT DRY WITH 4X4 GAUZE, PACK WITH PURACOL, MASSAGE PERIWOUND WITH VENELEX AND SECURE WITH ALLEVYN FOAM DAILY. NURSING TO MONITOR BKA AND TO NOTIFY DR. RUIZ OF ANY CHANGES. NURSING TO MONITOR AND TO APPLY FOAM TO BONY PROMINENCES. NURSING TO CONTINUE TO MONITOR PATIENT AND KEEP SKIN CLEAN AND FREE FROM STOOL OR IRRITATING MOISTURE AND CONTINUE TO FOLLOW MODERATE PUP INTERVENTIONS DAILY. NURSING TO CONTINUE REPOSITION PT SIDE TO SIDE EVERY TWO HOURS AND TO ENCOURAGE PT TO SELF REPOSITION IN BED NEEDED. NURSING TO CONTINUE TO APPLY REGULAR VISCO MATTRESS. NURSING TO CONTINUE TO OFFLOAD FOOT, STUMP AND HEEL AT ALL TIMES WITH PILLOW SUSPENSION WHEN IN BED. NURSING TO APPLY HEEL PROTECTOR. NURSING TO ASSIST PT OUT OF BED FOR MEALS AND NEEDED. NURSING TO CONTINUE TO ASSIST WITH PT NUTRITIONAL SUPPLEMENTS TO ENSURE PROPER REQUIREMENTS FOR HEALING. NURSING TO RE- CONSULT WOUND CARE NEEDED. Addendum: 01/26/20 at 1900 by Meghana Barrios RN Amended: Links added.
[2020-01-26] MEDS: DOCUSATE SODIUM 100 MG CAP PO PRN (20:51)
[2020-01-26] MEDS: ATORVASTATIN 20 MG TAB PO SCH (20:51)
[2020-01-27] VITALS (7 sets, daily range): BP systolic 104–141; BP diastolic 52–64
[2020-01-27] MEDS: HYDROMORPHONE 1MG/1ML INJ IV PRN ×3 (00:45→12:47)
[2020-01-27] MEDS: LEVOFLOXACIN 500 MG TAB PO SCH (01:22)
[2020-01-27 05:11] LABS: BASOPHILS % 0.2 % (0.0-1.0); EOSINOPHILS # (AUTO) 0.1 (0.0-0.4); EOSINOPHILS % 0.6 % (0.0-6.0); LYMPHOCYTES % 9.7 % (18.0-39.1); MEAN CORPUSCULAR HEMOGLOBIN 29.3 pg (28-32); MEAN CORPUSCULAR VOLUME 91.6 fL (81-99); MONOCYTES # (AUTO) 1.1 (0.2-0.8); MONOCYTES % 11.2 % (4.4-11.3); NEUTROPHILS # (AUTO) 7.8 (2.1-6.9); NEUTROPHILS % 77.8 % (38.7-80.0); PLATELET COUNT 436 x10e3/uL (140-360); RED BLOOD COUNT 2.73 x10e6/uL (3.6-5.1); RED CELL DISTRIBUTION WIDTH 14.4 % (11.7-14.4)
[2020-01-27 05:34] LABS: ALANINE AMINOTRANSFERASE 8 IU/L (0-55); ALBUMIN/GLOBULIN RATIO 0.5 (0.8-2.0); ALKALINE PHOSPHATASE 48 IU/L (40-150); ANION GAP 8.7 mmol/L (8-16); BLOOD UREA NITROGEN 9 mg/dL (7-26); BUN/CREATININE RATIO 17 (6-25); CALCIUM 8.8 mg/dL (8.4-10.2); CARBON DIOXIDE 26 mmol/L (22-29); CHLORIDE 101 mmol/L (98-107); CREATININE, SERUM 0.54 mg/dL (0.57-1.11); EST GLOMERULAR FILTRATION RATE > 60 ML/MIN (60-); GLUCOSE 167 mg/dL (74-118); MAGNESIUM 1.4 MG/DL (1.3-2.1); POTASSIUM 3.7 mmol/L (3.5-5.1); SODIUM 132 mmol/L (136-145)
--- NOTE | 2020-01-27 07:05 | NUR ---
RCD PT AT BED PT IS ALERT AND ORIENTED PT RESTING ON BED IV PATENT BY SALINE FLUSH BED LOW AND LOCKED CALL LIGHT IN REACH
[2020-01-27] MEDS: INSULIN LISPRO 100 UNIT/1 ML 3ML VIAL SQ SCH ×4 (07:30→21:00)
[2020-01-27] MEDS: FOLIC ACID 1 MG TAB PO SCH ×2 (09:00→17:00)
[2020-01-27] MEDS: LOSARTAN POTASSIUM 100 MG TAB PO SCH (09:00)
[2020-01-27] MEDS: BALSAM PERU/CASTOR OIL 60 GM OINT...G. TP SCH (09:00)
[2020-01-27] MEDS: PSYLLIUM 6GM PACKET PO SCH ×2 (09:00→17:00)
[2020-01-27] MEDS: PREGABALIN 50 MG CAP PO SCH ×2 (09:00→21:03)
--- NOTE | 2020-01-27 14:10 | NUR ---
PT IS FROM [facility]
--- NOTE | 2020-01-27 14:36 | NUR ---
Nutrition Intervention Note RD Recommendation(s) for Physician: - Continue current diet as ordered - Recommend Glucerna with meals for added nutrition and to promote weight gain The patient meets criteria for unspecified SEVERE protein-calorie malnutrition. Plan of Care: RD following, monitoring for tolerance and adequacy, oral supplement recommendation Nutrition reason for involvement: follow up RD Assessment 01/26: Follow up. Chart reviewed. Pt had BKA to LLE on 01/24 per chart. It is recorded pt has been consuming 0-50% of meals. Pt is now on an ADA diet and had BG of 164-173 mg/dL the past 3 days. Recommend Glucerna with meals at this time for added nutrition due to elevated blood glucose. Informed RN of recommendation. Will continue to monitor. (01/23/20) Pt is a 74 year old female admitted with gangrene foot s/p TMA. Pt reports she has been eating <50% of meals for the past 6 months. Pt mentioned she usually drinks 3 nutrition supplements/day. Pt also declared she had lost weight and used to weigh about 105 lbs a year ago. Pt currently weighs 85 lbs. If accurate, this would be ~20% weight loss in 1 year which is considered to be significant weight loss. No N/V reported. Pt is currently on a regular diet. Recommend Ensure Enlive with meals for added nutrition. Will continue to monitor. Principal Problems/Diagnoses: gangrene foot s/p TMA PMH: hypertension, hyperlipidemia, diabetes, rheumatoid arthritis, peripheral artery disease GI: soft, non-tender round abdomen Skin: stage 2 sacral pressure ulcer Labs: (01/26) Na 132, K 3.7, BUN 9, Cr 0.54, Glu 167, Ca 8.8 (01/23/20) Na 135, K 3.3, BUN 5, Cr 0.57, Glu 109, Ca 9.0 Meds: insulin, Metamucil, folic acid, losartan, colace, Lipitor, zofran, miralax Ht: 59.5 inches Wt: 85 lbs BMI: 16.9 kg/m2 (underweight) IBW: 99 lbs Malnutrition Evaluation (01/23/20) The patient meets criteria for unspecified SEVERE protein-calorie malnutrition. Energy intake: <75% of estimated energy requirements for >3 months Weight loss: 20% in 1 year (Chronic) Fat loss: Severe - tricep Muscle loss: Severe lower extremities Supporting Evidence: Fluid accumulation: unable to evaluate Functional Status: unable to evaluate Nutrition Prescription (Diet Order): regular Estimated Nutritional Needs: 7180-0539 calories/day (30-35 kcal/kg CBW) 58-77 g protein/day (1.5-2 g pro/kg CBW) Diet Adequacy: Not meeting calorie needs, Not meeting protein needs Tolerance: Tolerating PO Diet Education Needs Assessment: Diet education not indicated Nutrition Care Level: high Nutrition Diagnosis: Severe malnutrition related to h/o inadequate intake as evidenced by pt meeting <75% of estimated energy needs for > 1 month, 20% weight loss in 1 year, and severe muscle and fat depletion. Goal: Patient will meet 75-100% of estimated needs by follow up Progress: progressing Interventions: -carbohydrate-modified diet, Commercial beverage Monitoring/Evaluation: -Total energy intake, Total protein intake, Liquid supplement, Weight change Signed: Gina Knowles RD, LD
[2020-01-27] MEDS: AMLODIPINE BESYLATE 10 MG TAB PO SCH (17:00)
--- NOTE | 2020-01-27 18:44 | NUR ---
PT RESTING ON BED BED SIDE REPORT GIVEN TO ONCOMING NURSE
--- NOTE | 2020-01-27 19:35 | NUR ---
BEDSIDE SHIFT REPORT RECEIVED FROM DAY RN. PT IS ALERT AND ORIENTED X3. RESPIRATIONS ARE EVEN AND UNLABORED. SL 20 LEFT FOREARM. RUIZ TO GRAVITY-URINE IS CLEAR YELLOW. PT DENIES PAIN. LEFT AKA DRESSING IS DRY AND INTACT. CALL LIGHT WITHIN REACH. BED IN LOW POSITION.
[2020-01-27] MEDS: ATORVASTATIN 20 MG TAB PO SCH (21:02)
[2020-01-27] MEDS: ACETAMINOPHEN 325 MG TAB PO PRN (21:10)
--- NOTE | 2020-01-27 22:16 | NUR ---
NOTIFIED DR NOEL PT REFUSE INSULIN BY SCALE FOR 382 DUE TO GET 12 UNITS OF HUMALOG LISPRO. INSTRUCTED TO CHART REFUSE NO FURTHER ORDERS GIVEN.
[2020-01-28] VITALS (8 sets, daily range): BP systolic 101–131; BP diastolic 47–61
[2020-01-28] MEDS: LEVOFLOXACIN 500 MG TAB PO SCH (00:30)
[2020-01-28] MEDS ORDERED: BISACODYL 10 MG SUPP PR ONE (05:15)
--- NOTE | 2020-01-28 06:00 | NUR ---
PT GIVEN SUPPOSITORY ORDERED. PT CONSTIPATED AND LARGE MOUNT OF HARD STOOL REMOVED. PT ALSO GIVEN COLACE.RUIZ CARE GIVEN. PT TOLERATED PROCEDURE WELL.
[2020-01-28] MEDS: DOCUSATE SODIUM 100 MG CAP PO PRN (06:10)
--- NOTE | 2020-01-28 07:10 | NUR ---
RCD PT AT BED PT IS ALERT AND ORIENTED PT RESTING ON BED IV PATENT BY SALINE FLUSH BED LOW AND LOCKED CALL LIGHT IN REACH
[2020-01-28] MEDS: INSULIN LISPRO 100 UNIT/1 ML 3ML VIAL SQ SCH ×4 (07:30→21:00)
[2020-01-28] MEDS: HYDROCODONE/APAP 7.5MG-325MG 1 EA TAB PO PRN ×2 (07:45→16:25)
--- NOTE | 2020-01-28 08:42 | NUR ---
SPOKE WTO PT ABOUT SNF ORDER, SHE REFUSES TO SIGN CHOICE TO RETURN TO [facility] BECAUSE SHE STATES DR RUIZ TOLD HER SHE HAS TO DO THERAPY PRIOR TO LEAVING AND WAS TOLD MAYBE SATURDAY. WILL FOLLOW UP.
--- NOTE | 2020-01-28 08:44 | NUR ---
ALERTED NURSE NO PHYSICAL THERAPY ORDER
[2020-01-28] MEDS: BALSAM PERU/CASTOR OIL 60 GM OINT...G. TP SCH (08:48)
[2020-01-28] MEDS: FOLIC ACID 1 MG TAB PO SCH ×2 (08:48→17:00)
[2020-01-28] MEDS: LOSARTAN POTASSIUM 100 MG TAB PO SCH (08:48)
[2020-01-28] MEDS: PREGABALIN 50 MG CAP PO SCH ×2 (08:48→20:54)
[2020-01-28] MEDS: PSYLLIUM 6GM PACKET PO SCH ×2 (08:48→17:00)
--- NOTE | 2020-01-28 09:27 | NUR ---
AC TO RAILWAY TRACTION LINE WORKER PAGED AND TALKED DR Carlie GARDNER REGARDING PT CLAY,GOT THE ORDER AND SNF EVAL HE SAID PT IN NOT YET READY TO TRANSFER
[2020-01-28] MEDS: AMLODIPINE BESYLATE 10 MG TAB PO SCH (17:00)
--- NOTE | 2020-01-28 18:56 | NUR ---
PT RESTING ON BED BED SIDE REPORT GIVEN TO ONCOMING NURSE
--- NOTE | 2020-01-28 20:05 | NUR ---
BED ALARM ON. BED TO LOWEST POSITION
--- NOTE | 2020-01-28 20:49 | NUR ---
Rechecked BP 110/52 mmhg.
[2020-01-28] MEDS: ATORVASTATIN 20 MG TAB PO SCH (20:54)
[2020-01-29] VITALS (8 sets, daily range): BP systolic 95–129; BP diastolic 37–68
[2020-01-29] MEDS: LEVOFLOXACIN 500 MG TAB PO SCH (00:46)
[2020-01-29] MEDS: ACETAMINOPHEN 325 MG TAB PO PRN (01:04)
[2020-01-29 05:14] LABS: BASOPHILS % 0.5 % (0.0-1.0); EOSINOPHILS # (AUTO) 0.1 (0.0-0.4); EOSINOPHILS % 3.5 % (0.0-6.0); HEMATOCRIT 24.1 % (34.2-44.1); HEMOGLOBIN 7.7 g/dL (12.0-16.0); LYMPHOCYTES # (AUTO) 0.9 (1.0-3.2); LYMPHOCYTES % 22.9 % (18.0-39.1); MEAN CORPUSCULAR HEMOGLOBIN 29.4 pg (28-32); MONOCYTES # (AUTO) 0.7 (0.2-0.8); MONOCYTES % 18.6 % (4.4-11.3); NEUTROPHILS % 54.2 % (38.7-80.0); PLATELET COUNT 360 x10e3/uL (140-360); RED BLOOD COUNT 2.62 x10e6/uL (3.6-5.1); RED CELL DISTRIBUTION WIDTH 14.4 % (11.7-14.4)
[2020-01-29] MEDS ORDERED: BISACODYL 10 MG SUPP PR ONE (05:30)
[2020-01-29 05:38] LABS: ALANINE AMINOTRANSFERASE 11 IU/L (0-55); ALBUMIN 1.8 g/dL (3.5-5.0); ALBUMIN/GLOBULIN RATIO 0.5 (0.8-2.0); ALKALINE PHOSPHATASE 44 IU/L (40-150); BLOOD UREA NITROGEN 14 mg/dL (7-26); BUN/CREATININE RATIO 26 (6-25); CALCIUM 8.4 mg/dL (8.4-10.2); CARBON DIOXIDE 27 mmol/L (22-29); CHLORIDE 100 mmol/L (98-107); CREATININE, SERUM 0.53 mg/dL (0.57-1.11); EST GLOMERULAR FILTRATION RATE > 60 ML/MIN (60-); GLUCOSE 126 mg/dL (74-118); MAGNESIUM 1.5 MG/DL (1.3-2.1); SODIUM 132 mmol/L (136-145)
--- NOTE | 2020-01-29 07:00 | NUR ---
pt given dulcolax supp. skin cream applied to rt foot and leg. Pt denies pain. No hard stool felt when supp given. Contreras draining clear yellow urine.
[2020-01-29] MEDS: INSULIN LISPRO 100 UNIT/1 ML 3ML VIAL SQ SCH ×4 (07:30→20:49)
[2020-01-29] MEDS: FOLIC ACID 1 MG TAB PO SCH ×2 (09:00→17:00)
[2020-01-29] MEDS: PREGABALIN 50 MG CAP PO SCH ×2 (09:00→21:07)
[2020-01-29] MEDS: LOSARTAN POTASSIUM 100 MG TAB PO SCH (09:00)
[2020-01-29] MEDS: PSYLLIUM 6GM PACKET PO SCH ×2 (09:00→17:00)
--- NOTE | 2020-01-29 09:13 | NUR ---
OBTAINED SIGNATURE FOR RETURN TO [facility], FILED CHOICE IN CHART AND FAXED CLINICALS TO [phone]. PENDING AUTH.
[2020-01-29] MEDS ORDERED: MAGNESIUM HYDROXIDE 30 ML UDC PO ONE (10:30)
[2020-01-29] MEDS: HYDROCODONE/APAP 7.5MG-325MG 1 EA TAB PO PRN ×2 (11:48→18:21)
--- NOTE | 2020-01-29 12:27 | NUR ---
[facility] FAC[facility] DISCHARGE INFORMATION PATIENT HAS BEEN ACCEPTED TO: NAME: [facility] ADDRESS: [id number] [facility] ACCEPTING [employer] DIRECTOR: CATHY JEAN MD:RAE ROOM:[id number] NURSE CALL REPORT TO: [phone] IMM SIGNED AND OBTAINED (if applicable): IMM THE FOLLOWING DOCUMENTS MUST ACCOMPANY PATIENT FOR TRANSFER: COPIED CHART: PACKET AT STATION
[2020-01-29] MEDS: BALSAM PERU/CASTOR OIL 60 GM OINT...G. TP SCH (13:44)
[2020-01-29] MEDS: AMLODIPINE BESYLATE 10 MG TAB PO SCH (17:00)
--- NOTE | 2020-01-29 17:41 | NUR ---
PT IN BED STILL C/O CONSTIPATION,DENIES PAIN DRSG TO LT LEG CD&I
--- NOTE | 2020-01-29 18:35 | NUR ---
RUIZ CATH DCD ORDERED..DUE TO VOID BY 0200
--- NOTE | 2020-01-29 18:45 | NUR ---
PT C/O LT LEG AIN MEDICATED.
--- NOTE | 2020-01-29 19:01 | NUR ---
WALKING ROUNDS PERFORMED, RECEIVED PT (R) SIDE LAYING SEMI FOWLERS IN BED, AAOX3, RR EVEN AND NON-LABORED, ON ROOM AIR. NO S/SX OF DISTRESS NOTED. LEFT PT (R) SIDE LAYING SEMI FOWLERS IN BED, BED IN LOW LOCKED POSITION, SIDE RAILS UPX2, CALL LIGHT AND PHONE WITHIN REACH.
--- NOTE | 2020-01-29 19:25 | NUR ---
RECEIVED REPORT FROM PREVIOUS NURSE. CALL LIGHT WITHIN REACH. PATIENT IN BED. PATIENT IS A&OX3.
[2020-01-29] MEDS: ATORVASTATIN 20 MG TAB PO SCH (21:07)
[2020-01-30] VITALS (8 sets, daily range): BP systolic 95–122; BP diastolic 44–57
[2020-01-30 05:04] LABS: BASOPHILS % 0.7 % (0.0-1.0); EOSINOPHILS # (AUTO) 0.1 (0.0-0.4); EOSINOPHILS % 2.1 % (0.0-6.0); HEMATOCRIT 25.3 % (34.2-44.1); HEMOGLOBIN 8.2 g/dL (12.0-16.0); LYMPHOCYTES % 34.9 % (18.0-39.1); MEAN CORPUSCULAR HEMOGLOBIN 29.9 pg (28-32); MEAN CORPUSCULAR HGB CONC 32.4 g/dL (31-35); MEAN CORPUSCULAR VOLUME 92.3 fL (81-99); MONOCYTES # (AUTO) 0.6 (0.2-0.8); MONOCYTES % 20.4 % (4.4-11.3); NEUTROPHILS # (AUTO) 1.2 (2.1-6.9); NEUTROPHILS % 41.6 % (38.7-80.0); PLATELET COUNT 334 x10e3/uL (140-360); RED BLOOD COUNT 2.74 x10e6/uL (3.6-5.1); RED CELL DISTRIBUTION WIDTH 14.4 % (11.7-14.4)
[2020-01-30 05:26] LABS: ALANINE AMINOTRANSFERASE 13 IU/L (0-55); ALBUMIN/GLOBULIN RATIO 0.5 (0.8-2.0); ALKALINE PHOSPHATASE 48 IU/L (40-150); ANION GAP 10.1 mmol/L (8-16); BLOOD UREA NITROGEN 13 mg/dL (7-26); BUN/CREATININE RATIO 27 (6-25); CALCIUM 8.7 mg/dL (8.4-10.2); CARBON DIOXIDE 26 mmol/L (22-29); CHLORIDE 99 mmol/L (98-107); CREATININE, SERUM 0.49 mg/dL (0.57-1.11); EST GLOMERULAR FILTRATION RATE > 60 ML/MIN (60-); GLUCOSE 119 mg/dL (74-118); MAGNESIUM 1.7 MG/DL (1.3-2.1); POTASSIUM 4.1 mmol/L (3.5-5.1); SODIUM 131 mmol/L (136-145)
[2020-01-30] MEDS: BALSAM PERU/CASTOR OIL 60 GM OINT...G. TP SCH (05:41)
[2020-01-30] MEDS ORDERED: LEVOFLOXACIN 500 MG TAB PO SCH (06:00)
[2020-01-30] MEDS: INSULIN LISPRO 100 UNIT/1 ML 3ML VIAL SQ SCH ×4 (07:30→20:19)
[2020-01-30] MEDS: CEFTRIAXONE SOD 1 GM/NS 50 ML 50 ML IV SCH ×2 (08:39→09:04)
[2020-01-30] MEDS: LOSARTAN POTASSIUM 100 MG TAB PO SCH ×2 (08:40→09:04)
[2020-01-30] MEDS: PSYLLIUM 6GM PACKET PO SCH ×2 (09:04→16:01)
[2020-01-30] MEDS: FOLIC ACID 1 MG TAB PO SCH ×2 (09:04→16:01)
[2020-01-30] MEDS: HYDROCODONE/APAP 7.5MG-325MG 1 EA TAB PO PRN (09:05)
[2020-01-30 11:32] LABS: EOSINOPHILS % (MANUAL) 2 % (0-7); LYMPHOCYTES % (MANUAL) 35 % (19-48); MONOCYTES % (MANUAL) 18 % (3.4-9.0)
[2020-01-30 11:33] LABS: NEUTROPHILS % (MANUAL) 45 % (40-74); PLATELET ESTIMATE ADEQUATE; RBC MORPHOLOGY COMMENT NORMAL
[2020-01-30] MEDS: AMLODIPINE BESYLATE 10 MG TAB PO SCH (16:06)
[2020-01-30] MEDS: ATORVASTATIN 20 MG TAB PO SCH (20:18)
[2020-01-31] VITALS (8 sets, daily range): BP systolic 101–128; BP diastolic 51–60
[2020-01-31] MEDS: ONDANSETRON HCL INJ 2MG/ML 2ML 2 MG/ML VIAL IV PRN ×3 (00:50→21:14)
[2020-01-31] MEDS: HYDROMORPHONE 1MG/1ML INJ IV PRN ×3 (00:50→21:14)
[2020-01-31 05:52] LABS: BASOPHILS % 0.3 % (0.0-1.0); EOSINOPHILS # (AUTO) 0.1 (0.0-0.4); EOSINOPHILS % 2.5 % (0.0-6.0); LYMPHOCYTES # (AUTO) 1.2 (1.0-3.2); LYMPHOCYTES % 36.5 % (18.0-39.1); MEAN CORPUSCULAR VOLUME 90.6 fL (81-99); MONOCYTES # (AUTO) 0.5 (0.2-0.8); MONOCYTES % 14.4 % (4.4-11.3); NEUTROPHILS # (AUTO) 1.5 (2.1-6.9); NEUTROPHILS % 45.7 % (38.7-80.0); PLATELET COUNT 372 x10e3/uL (140-360); RED BLOOD COUNT 2.76 x10e6/uL (3.6-5.1); RED CELL DISTRIBUTION WIDTH 14.2 % (11.7-14.4)
[2020-01-31 06:42] LABS: ALANINE AMINOTRANSFERASE 13 IU/L (0-55); ALBUMIN 1.9 g/dL (3.5-5.0); ALBUMIN/GLOBULIN RATIO 0.5 (0.8-2.0); ALKALINE PHOSPHATASE 47 IU/L (40-150); ANION GAP 12.4 mmol/L (8-16); BLOOD UREA NITROGEN 17 mg/dL (7-26); BUN/CREATININE RATIO 29 (6-25); CALCIUM 8.7 mg/dL (8.4-10.2); CARBON DIOXIDE 27 mmol/L (22-29); CHLORIDE 99 mmol/L (98-107); CREATININE, SERUM 0.58 mg/dL (0.57-1.11); EST GLOMERULAR FILTRATION RATE > 60 ML/MIN (60-); GLUCOSE 114 mg/dL (74-118); POTASSIUM 4.4 mmol/L (3.5-5.1); SODIUM 134 mmol/L (136-145)
--- NOTE | 2020-01-31 07:10 | NUR ---
GAVE REPORT TO ONCOMING NURSE. CALL LIGHT WITHIN REACH. PATIENT IN BED. HOURLY ROUNDING PERFORMED.
[2020-01-31] MEDS: INSULIN LISPRO 100 UNIT/1 ML 3ML VIAL SQ SCH ×4 (07:30→21:08)
--- NOTE | 2020-01-31 08:00 | NUR ---
INITIAL ASSESSMENT COMPLETE, CALL LIGHT IN REACH, IV INTACT, CONTINUE TO TURN Q 2, STAGE 3 ON SACRAL AREA, INTACT. LEFT AKA DRESSING INTACT,VS WNL,
[2020-01-31 08:31] LABS: EOSINOPHILS % (MANUAL) 3 % (0-7); LYMPHOCYTES % (MANUAL) 24 % (19-48); MONOCYTES % (MANUAL) 20 % (3.4-9.0); NEUTROPHILS % (MANUAL) 52 % (40-74)
[2020-01-31 08:32] LABS: PLATELET ESTIMATE SLIGHTLY INCREASED; PLATELET MORPHOLOGY COMMENT RARE EDTA CLUMPING; RBC MORPHOLOGY COMMENT NORMAL
[2020-01-31] MEDS: FOLIC ACID 1 MG TAB PO SCH ×2 (09:00→17:00)
[2020-01-31] MEDS: PSYLLIUM 6GM PACKET PO SCH ×2 (09:00→17:00)
[2020-01-31] MEDS: BALSAM PERU/CASTOR OIL 60 GM OINT...G. TP SCH (09:00)
[2020-01-31] MEDS: HYDROCODONE/APAP 7.5MG-325MG 1 EA TAB PO PRN ×3 (09:15→23:28)
--- NOTE | 2020-01-31 09:30 | NUR ---
DRESSING TO SACRUM AREA CHANGED, OINTMENT APPLIED, DRESSING CDI,
--- NOTE | 2020-01-31 09:59 | Progress Note ---
DATE: SUBJECTIVE: The patient did well overnight. No new complaints. OBJECTIVE: VITAL SIGNS: Temperature 98.6, pulse 92, blood pressure 122/57, sats 96%. GENERAL: No apparent distress, lying in bed. LUNGS: Clear to auscultation bilaterally. CARDIOVASCULAR: Regular rate and rhythm. ABDOMEN: Good bowel sounds. Soft, nontender. EXTREMITIES: No clubbing or cyanosis. Her left AKA is bandaged very well. No seepage. NEUROLOGIC: Nonfocal. ASSESSMENT AND PLAN: 1. Leukopenia. We will continue to monitor with CBC. She appears to be asymptomatic, but I want to continue to monitor white count. 2. Anemia. Continue to monitor. 3. Diabetes. Continue with current care and monitoring of her sugars. 4. Hypertension. Continue with her medications, losartan and amlodipine. 5. Hyperlipidemia. Continue with her atorvastatin. 6. Cellulitis of the left leg. Continue with her Rocephin. Please see hospital chart for full details. MD TRI Tanner/MODL /[id number]
[2020-01-31] MEDS: AMLODIPINE BESYLATE 10 MG TAB PO SCH (17:00)
--- NOTE | 2020-01-31 18:43 | NUR ---
report given to on coming nurse, vs wnl, call light in reach, no distress noted
--- NOTE | 2020-01-31 19:00 | NUR ---
RECEIVED REPORT FROM PREVIOUS NURSE. CALL LIGHT WITHIN REACH. PATIENT IN BED. ROUNDING PERFORMED.
--- NOTE | 2020-01-31 19:48 | NUR ---
PATIENT COMPLAINING OF ACID REFLUX AND WOULD LIKE SOMETHING FOR IT. CALLED AND TALKED TO DR. NOEL AND HE ORDERED PROTONIX 40 MG PO DAILY.
[2020-01-31] MEDS ORDERED: PANTOPRAZOLE 40 MG 10ML VIAL IV ONE (20:30)
[2020-01-31] MEDS: ATORVASTATIN 20 MG TAB PO SCH (21:08)
[2020-02-01] MEDS: ONDANSETRON HCL INJ 2MG/ML 2ML 2 MG/ML VIAL IV PRN (04:17)
[2020-02-01] MEDS: HYDROMORPHONE 1MG/1ML INJ IV PRN (04:17)
[2020-02-01 04:40] VITALS: BP 124/69
[2020-02-01 05:13] LABS: BASOPHILS % 0.3 % (0.0-1.0); EOSINOPHILS # (AUTO) 0.1 (0.0-0.4); EOSINOPHILS % 2.2 % (0.0-6.0); HEMATOCRIT 25.2 % (34.2-44.1); LYMPHOCYTES # (AUTO) 0.8 (1.0-3.2); MEAN CORPUSCULAR HEMOGLOBIN 29.2 pg (28-32); MEAN CORPUSCULAR HGB CONC 31.7 g/dL (31-35); MONOCYTES # (AUTO) 0.4 (0.2-0.8); MONOCYTES % 13.8 % (4.4-11.3); NEUTROPHILS # (AUTO) 1.9 (2.1-6.9); NEUTROPHILS % 58.4 % (38.7-80.0); PLATELET COUNT 343 x10e3/uL (140-360); RED BLOOD COUNT 2.74 x10e6/uL (3.6-5.1); RED CELL DISTRIBUTION WIDTH 14.2 % (11.7-14.4)
[2020-02-01 06:08] LABS: ALANINE AMINOTRANSFERASE 11 IU/L (0-55); ALBUMIN 2.1 g/dL (3.5-5.0); ALBUMIN/GLOBULIN RATIO 0.5 (0.8-2.0); ALKALINE PHOSPHATASE 49 IU/L (40-150); ANION GAP 11.2 mmol/L (8-16); BLOOD UREA NITROGEN 14 mg/dL (7-26); BUN/CREATININE RATIO 25 (6-25); CALCIUM 8.7 mg/dL (8.4-10.2); CARBON DIOXIDE 25 mmol/L (22-29); CHLORIDE 99 mmol/L (98-107); CREATININE, SERUM 0.56 mg/dL (0.57-1.11); EST GLOMERULAR FILTRATION RATE > 60 ML/MIN (60-); GLUCOSE 119 mg/dL (74-118); POTASSIUM 4.2 mmol/L (3.5-5.1); SODIUM 131 mmol/L (136-145)
--- NOTE | 2020-02-01 07:00 | NUR ---
RECEIVED PATIENT RESTING IN BED NO S/S OF DISTRESS. BED LOW, WHEELS LOCKED, SIDE RAILS X2. CALL LIGHT IN REACH WILL CONTINUE TO MONITOR PATIENT.
--- NOTE | 2020-02-01 07:15 | NUR ---
GAVE REPORT TO ONCOMING NURSE. CALL LIGHT WITHIN REACH. PATIENT IN BED. HOURLY ROUNDING PERFORMED
[2020-02-01] MEDS: INSULIN LISPRO 100 UNIT/1 ML 3ML VIAL SQ SCH ×3 (07:30→16:30)
[2020-02-01 07:38] VITALS: BP 103/49
[2020-02-01] MEDS: CEFTRIAXONE SOD 1 GM/NS 50 ML 50 ML IV SCH (08:42)
[2020-02-01] MEDS: LOSARTAN POTASSIUM 100 MG TAB PO SCH ×2 (08:43→10:54)
[2020-02-01] MEDS: PSYLLIUM 6GM PACKET PO SCH ×2 (08:43→17:00)
[2020-02-01] MEDS: POLYETHYLENE GLYCOL 3350 17 GM PACK PO SCH ×2 (08:43→17:09)
[2020-02-01] MEDS: BALSAM PERU/CASTOR OIL 60 GM OINT...G. TP SCH (08:43)
[2020-02-01] MEDS: FOLIC ACID 1 MG TAB PO SCH ×2 (08:43→17:09)
[2020-02-01 08:57] VITALS: BP 103/49
--- NOTE | 2020-02-01 08:58 | NUR ---
PT STILL HERE AFTER GETTING BED SATURDAY, ALERTED CM AND MD. PT BED STILL AVAILABLE TO SEND TODAY.
[2020-02-01] MEDS ORDERED: DOCUSATE SODIUM 100 MG CAP PO SCH (09:00)
[2020-02-01] MEDS ORDERED: PANTOPRAZOLE 40 MG 10ML VIAL IV SCH (09:00)
[2020-02-01 09:44] LABS: EOSINOPHILS % (MANUAL) 3 % (0-7); LYMPHOCYTES % (MANUAL) 30 % (19-48); MONOCYTES % (MANUAL) 5 % (3.4-9.0); NEUTROPHILS % (MANUAL) 62 % (40-74); PLATELET ESTIMATE ADEQUATE; PLATELET MORPHOLOGY COMMENT NORMAL; RBC MORPHOLOGY COMMENT NORMAL
[2020-02-01 11:07] VITALS: BP 119/105
--- NOTE | 2020-02-01 16:18 | NUR ---
REPORT CALLED AND GIVEN TO FLORIAN AT [facility]. SUMMARY OF CARE PROVIDED.
[2020-02-01] MEDS: AMLODIPINE BESYLATE 10 MG TAB PO SCH (16:49)
[2020-02-01] MEDS: ACETAMINOPHEN 325 MG TAB PO PRN (17:32)
--- NOTE | 2020-02-01 17:36 | NUR ---
Nutrition Intervention Note RD Recommendation(s) for Physician: - Continue current diet as ordered - Recommend Glucerna with meals for added nutrition and to promote weight gain -Recommend Manjeet BID as well as zinc and vitamin C to promote wound healing The patient meets criteria for unspecified SEVERE protein-calorie malnutrition. Plan of Care: RD following, monitoring for tolerance and adequacy, oral supplement recommendation Nutrition reason for involvement: follow up RD Assessment 01/31: Follow up. Chart reviewed. Pt has varied intake ranging from 0-75% of meals the past 3 days per chart. Continue to recommend Glucerna with meals for added nutrition. Also, recommend Manjeet BID to promote wound healing since pt has a stage 2 pressure ulcer per documentation. Will continue to monitor. 01/26: Follow up. Chart reviewed. Pt had BKA to LLE on 01/24 per chart. It is recorded pt has been consuming 0-50% of meals. Pt is now on an ADA diet and had BG of 164-173 mg/dL the past 3 days. Recommend Glucerna with meals at this time for added nutrition due to elevated blood glucose. Informed RN of recommendation. Will continue to monitor. (01/23/20) Pt is a 74 year old female admitted with gangrene foot s/p TMA. Pt reports she has been eating <50% of meals for the past 6 months. Pt mentioned she usually drinks 3 nutrition supplements/day. Pt also declared she had lost weight and used to weigh about 105 lbs a year ago. Pt currently weighs 85 lbs. If accurate, this would be ~20% weight loss in 1 year which is considered to be significant weight loss. No N/V reported. Pt is currently on a regular diet. Recommend Ensure Enlive with meals for added nutrition. Will continue to monitor. Principal Problems/Diagnoses: gangrene foot s/p TMA PMH: hypertension, hyperlipidemia, diabetes, rheumatoid arthritis, peripheral artery disease GI: soft, non-tender round abdomen, last recorded BM 01/29 Skin: stage 2 sacral pressure ulcer Labs: 01/31: Na 131, K 4.2, Bun 14, Cr 0.56, Glu 119 (01/26) Na 132, K 3.7, BUN 9, Cr 0.54, Glu 167, Ca 8.8 (01/23/20) Na 135, K 3.3, BUN 5, Cr 0.57, Glu 109, Ca 9.0 Meds: insulin, losartan, miralax, colace, folic acid, protonix, antibiotic, zofran, Lipitor Ht: 59.5 inches Wt: 85 lbs BMI: 16.9 kg/m2 (underweight) IBW: 99 lbs Malnutrition Evaluation (01/23/20) The patient meets criteria for unspecified SEVERE protein-calorie malnutrition. Energy intake: <75% of estimated energy requirements for >3 months Weight loss: 20% in 1 year (Chronic) Fat loss: Severe - tricep Muscle loss: Severe lower extremities Supporting Evidence: Fluid accumulation: unable to evaluate Functional Status: unable to evaluate Nutrition Prescription (Diet Order): regular Estimated Nutritional Needs: 9318-9569 calories/day (30-35 kcal/kg CBW) 58-77 g protein/day (1.5-2 g pro/kg CBW) Diet Adequacy: Not meeting calorie needs, Not meeting protein needs Tolerance: Tolerating PO Diet Education Needs Assessment: Diet education not indicated Nutrition Care Level: high Nutrition Diagnosis: Severe malnutrition related to h/o inadequate intake as evidenced by pt meeting <75% of estimated energy needs for > 1 month, 20% weight loss in 1 year, and severe muscle and fat depletion. Goal: Patient will meet 75-100% of estimated needs by follow up Progress: progressing Interventions: -carbohydrate-modified diet, Commercial beverage, Multivitamin/mineral supplement therapy Monitoring/Evaluation: -Total energy intake, Total protein intake, Liquid supplement, Weight change Signed: Gina Knowles RD, LD
--- NOTE | 2020-02-01 17:41 | NUR ---
PATIENT DISCHARGED FROM FACILITY. PATIENT TRANSFERRED TO [facility]. LEFT UNIT IN STRETCHER WITH EMS. NO S/S OF DISTRESS. PATIENT GATHERED ALL PERSONAL BELONGINGS AND FOLLOW UP INFORMATION.
--- NOTE | 2020-02-02 06:27 | Discharge Summary ---
DISCHARGE DIAGNOSES: 1. Status post left AKA. 2. Peripheral arterial disease. 3. Diabetes. 4. Rheumatoid arthritis. 5. Hypertension. 6. Hyperlipidemia. HISTORY OF PRESENT ILLNESS AND HOSPITAL COURSE: The patient is an elderly lady, who has multiple amputations of the left leg this would not heal secondary to severe peripheral arterial disease, who presented to the hospital were an AKA, which was performed by Dr. Baptiste without any complications. Postoperatively, she was continued with her antibiotics and wound care and at the time of discharge, the patient was then transferred back [facility]. I offered the patient inpatient rehab which she refused because she want to go back to a [facility] facility where her daughter is at, so she could be near her daughter. Please see hospital chart for full details. MD TRI Tanner/NICK /[id number]
--- OUTSIDE RECORDS SUMMARY | 2020-02-12 09:54 | XMS REPORT | Clinical Summary ---
Author Author [facility] Organization [facility] Address Unknown Phone Unavailable Care Team Providers Care Cfd Engineer Name Role Phone Shmuel Thompson MD PCP Allergies Comments Active Allergy Reactions Severity Noted Date Hallucinations Sulfa (Sulfonamide Anxiety Low 11/13/2019 Antibiotics) Medications End Date Status Medication Sig Dispensed Refills Start Date Active atorvastatin (LIPITOR) 40 Take 40 mg by 0 MG tablet mouth daily. Active clopidogreL (PLAVIX) 75 Take 75 mg by 0 mg tablet mouth daily. Active metFORMIN (GLUCOPHAGE) Take 500 mg 0 500 mg tablet by mouth 2 (two) times a day with meals. Active losartan (COZAAR) 50 MG Take 50 mg by 0 tablet mouth daily. Active amLODIPine (NORVASC) 10 Take 10 mg by 0 mg tablet mouth daily. Active folic acid (FOLVITE) 1 MG Take 1 mg by 0 tablet mouth daily. Active calcium carbonate-vitamin Take by mouth 0 D3 (Calcium 600 + D,3,) every other 600 mg calcium- 200 unit day. capsule Active cholecalciferol, vitamin Take 2,000 0 D3, 50 mcg (2,000 unit) Units by capsule capsule mouth daily. Active famotidine (PEPCID) 20 MG Take 20 mg by 0 tablet mouth as needed for heartburn. 11/24/2019 Discontinued (Stop Taking at Discharge) mupirocin 2 % ointment Apply 0 kit topically. 11/24/2019 Discontinued (Stop Taking at Discharge) acetaminophen (TYLENOL) Take 500 mg 0 500 MG tablet by mouth every 6 (six) hours as needed for mild pain. 11/24/2019 Discontinued (Stop Taking at Discharge) aspirin (ECOTRIN) 81 MG Take 81 mg by 0 enteric coated tablet mouth daily. 12/08/2019 mupirocin (BACTROBAN) 2 % Apply 30 g 0 ointment topically 3 0 (three) times a day for 14 days. Apply to incisions 12/24/2019 apixaban (ELIQUIS) 2.5 mg Take 1 tablet 60 tablet 0 tablet (2.5 mg 0 total) by mouth 2 (two) times a day for 30 days. 11/29/2019 acetaminophen-codeine Take 1 tablet 15 tablet 0 (TYLENOL WITH CODEINE #3) by mouth 0 300-30 mg per every 6 (six) tabletIndications: acute hours as pain needed for moderate pain for up to 5 days .acute pain. 12/24/2019 bisacodyL (DULCOLAX) 10 Insert 1 30 0 mg suppository suppository suppository 0 (10 mg total) into the rectum daily as needed for constipation for up to 30 days. 12/08/2019 nitroglycerin (NITROSTAT) Place 0.5 28 g 0 2 % ointment inches on the 0 skin every 6 (six) hours for 14 days. 12/25/2019 polyethylene glycol Take 17 g by 30 packet 0 11/24 (MIRALAX) 17 gram packet mouth daily 0 for 30 days. 12/24/2019 sennosides-docusate Take 1 tablet 60 tablet 0 11/12 sodium (SENOKOT-S) 8.6-50 by mouth 2 0 mg per tablet (two) times a day for 30 days. Active Problems Problem Noted Date PAD (peripheral artery disease) 11/18/2019 Encounters Care Team Description Date Type Specialty Ralph Tolbert MD LEFT SUPERFICIAL FEMORAL ARTERY TO PERON EAL ARTERY BYPASS, USING SAPHENOUS VEIN GRAFT 11/18/2019 Surgery Cardiothoracic Surg Rei wSift MD Jatzlau, Amybeth, APRN 11/18/2019 Anesthesia Cardiothoracic Surg Ralph Pham MD Nguyen, Leanne, MD PAD (peripheral artery disease) ([facility]) (P rimary Dx) 11/18/2019 [facility] Internal Or dicine - Encounter 11/24/2019 11/18/2019 Travel Finn Tolbert MD Sweeney, Michael S., MD Preop testing 11/13/2019 Hospital Radiology Encounter Ralph Tolbert MD Preop testing (Primary Dx) 11/13/2019 Pre-Admit Pre-Admission Testi ng Testing Appointment 11/13/2019 Travel 11/12/2019 Travel after 01/22/2019 Social History Date Tobacco Use Types Packs/Day Years Used Never Smoker Smokeless Tobacco: Never Used Drinks/Week oz/Week Comments Alcohol Use Never Alcohol Habits Answer Date Recorded How often do you have a drink containing alcohol? Never 11/13/2019 How many drinks containing alcohol do you have on No t asked a typical day when you are drinking? How often do you have six or more drinks on one Not asked occasion? Sex Assigned at Date Recorded Not on file Industry Job Start Date Occupation Not on file Not on file Not on file Travel End Travel History Travel Start No recent travel history available. Last Filed Vital Signs Reading Time Taken Comments Vital Sign 123/60 11/24/2019 11:15 AM CDT Blood Pressure 94 11/24/2019 11:15 AM CDT Pulse 36.6 C (97.9 F) 11/24/2019 11:15 AM CDT Temperature 18 11/24/2019 11:15 AM CDT Respiratory Rate 100% 11/24/2019 11:15 AM CDT Oxygen Saturation - - Inhaled Oxygen Concentration 40.8 kg (90 lb) 11/24/2019 5:00 AM CDT Weight 149.9 cm (4' 11") 11/18/2019 6:15 AM CDT Height 18.18 11/18/2019 6:15 AM CDT Body Mass Index Plan of Treatment Health Maintenance Due Date Last Done Comments BREAST CANCER SCREENING 1997 COLONOSCOPY SCREENING 1997 SHINGLES VACCINES (#1) 1997 65+ PNEUMOCOCCAL VACCINE 2012 (1 of 2 - PCV13) INFLUENZA VACCINE 02/13/2020 Implants Device Identifier Shelf Expiration Date Model / Serial / L ot Implanted Type Area Manufactur er 02/23/2024 [id number] / / [employer] Hemoclip Plus W/ Medical N/A: N/A TELEFLEX Tape Ti Lg - [id number] Clips for MEDICAL Implanted: Qty: 1 on 11/18/2019 by Internal Ralph Tolbert MD at [facility] 07/11/2024 [id number] / / [id number] [facility] Vasclr Ptfe 1.2x10cm Vascular N/A: N/A BARD 1.65mm - [id number] Graft PERIPHERAL Implanted: Qty: 1 on 11/18/2019 by VASCULAR Ralph Tolbert MD at [facility] Procedures Comments Procedure Name Priority Date/Time Associated Diag nosis POC GLUCOSE Routine 11/24/2019 11:16 AM CDT POC GLUCOSE Routine 11/24/2019 7:55 AM CDT HC COMPLETE BLD COUNT Routine 11/24/2019 W/AUTO DIFF 4:45 AM CDT ESTIMATED GFR Routine 11/24/2019 4:00 AM CDT BASIC METABOLIC PANEL Routine 11/24/2019 4:00 AM CDT POC GLUCOSE Routine 11/23/2019 9:13 PM CDT POC GLUCOSE Routine 11/23/2019 5:16 PM CDT POC GLUCOSE Routine 11/23/2019 11:17 AM CDT POC GLUCOSE Routine 11/23/2019 7:27 AM CDT ESTIMATED GFR Routine 11/23/2019 4:30 AM CDT BASIC METABOLIC PANEL Routine 11/23/2019 4:30 AM CDT HC COMPLETE BLD COUNT Routine 11/23/2019 W/AUTO DIFF 4:30 AM CDT POC GLUCOSE Routine 11/23/2019 4:23 AM CDT POC GLUCOSE Routine 11/23/2019 1:07 AM CDT POC GLUCOSE Routine 11/23/2019 1:05 AM CDT POC GLUCOSE Routine 11/22/2019 9:32 PM CDT CONSULT TO OSTOMY CARE Routine 11/22/2019 NURSE 6:31 PM CDT POC GLUCOSE Routine 11/22/2019 5:48 PM CDT POC GLUCOSE Routine 11/22/2019 11:49 AM CDT POC GLUCOSE Routine 11/22/2019 7:37 AM CDT POC GLUCOSE Routine 11/22/2019 4:42 AM CDT ESTIMATED GFR Routine 11/22/2019 4:40 AM CDT HC COMPLETE BLD COUNT Routine 11/22/2019 W/AUTO DIFF 4:40 AM CDT BASIC METABOLIC PANEL Routine 11/22/2019 4:40 AM CDT POC GLUCOSE Routine 11/22/2019 12:02 AM CDT POC GLUCOSE Routine 11/21/2019 9:21 PM CDT POC GLUCOSE Routine 11/21/2019 6:00 PM CDT POC GLUCOSE Routine 11/21/2019 12:19 PM CDT POC GLUCOSE Routine 11/21/2019 8:04 AM CDT ESTIMATED GFR Routine 11/21/2019 3:15 AM CDT HC COMPLETE BLD COUNT Routine 11/21/2019 W/AUTO DIFF 3:15 AM CDT BASIC METABOLIC PANEL Routine 11/21/2019 3:15 AM CDT POC GLUCOSE Routine 11/20/2019 8:53 PM CDT POC GLUCOSE Routine 11/20/2019 5:36 PM CDT POC GLUCOSE Routine 11/20/2019 1:47 PM CDT POC GLUCOSE Routine 11/20/2019 8:03 AM CDT ESTIMATED GFR Routine 11/20/2019 4:30 AM CDT BASIC METABOLIC PANEL Routine 11/20/2019 4:30 AM CDT HC COMPLETE BLD COUNT Routine 11/20/2019 W/AUTO DIFF 4:30 AM CDT PHOSPHORUS LEVEL Routine 11/20/2019 4:30 AM CDT IONIZED CALCIUM Routine 11/20/2019 4:30 AM CDT MAGNESIUM LEVEL Routine 11/20/2019 4:30 AM CDT PARTIAL THROMBOPLASTIN Routine 11/20/2019 TIME (PTT) 4:25 AM CDT POC GLUCOSE Routine 11/19/2019 9:16 PM CDT POC GLUCOSE Routine 11/19/2019 4:24 PM CDT POC GLUCOSE Routine 11/19/2019 2:18 PM CDT POC GLUCOSE Routine 11/19/2019 11:47 AM CDT POC GLUCOSE Routine 11/19/2019 7:42 AM CDT XR CHEST 1 VW PORTABLE Routine 11/19/2019 4:52 AM CDT ECG 12-LEAD Routine 11/19/2019 4:41 AM CDT POC GLUCOSE Routine 11/19/2019 3:43 AM CDT ESTIMATED GFR Routine 11/19/2019 12:15 AM CDT PROTHROMBIN TIME WITH INR Routine 11/19/2019 12:15 AM CDT PHOSPHORUS LEVEL Routine 11/19/2019 12:15 AM CDT MAGNESIUM LEVEL Routine 11/19/2019 12:15 AM CDT IONIZED CALCIUM Routine 11/19/2019 12:15 AM CDT HC COMPLETE BLD COUNT Routine 11/19/2019 W/AUTO DIFF 12:15 AM CDT PARTIAL THROMBOPLASTIN Routine 11/19/2019 TIME (PTT) 12:15 AM CDT BASIC METABOLIC PANEL Routine 11/19/2019 12:15 AM CDT POC GLUCOSE Routine 11/19/2019 12:00 AM CDT POC GLUCOSE Routine 11/18/2019 7:57 PM CDT POC GLUCOSE Routine 11/18/2019 5:42 PM CDT ECG 12-LEAD STAT 11/18/2019 2:25 PM CDT XR CHEST 1 VW PORTABLE STAT 11/18/2019 2:25 PM CDT ANTI XA, UNFRACTIONATED STAT 11/18/2019 2:24 PM CDT ESTIMATED GFR STAT 11/18/2019 2:24 PM CDT PROTHROMBIN TIME WITH INR STAT 11/18/2019 2:24 PM CDT PHOSPHORUS LEVEL STAT 11/18/2019 2:24 PM CDT PARTIAL THROMBOPLASTIN STAT 11/18/2019 TIME (PTT) 2:24 PM CDT MAGNESIUM LEVEL STAT 11/18/2019 2:24 PM CDT FIBRINOGEN STAT 11/18/2019 2:24 PM CDT CBC HEMOGRAM STAT 11/18/2019 2:24 PM CDT BASIC METABOLIC PANEL STAT 11/18/2019 2:24 PM CDT IONIZED CALCIUM, ARTERIAL STAT 11/18/2019 2:20 PM CDT ARTERIAL BLOOD GAS STAT 11/18/2019 2:20 PM CDT POC GLUCOSE Routine 11/18/2019 2:05 PM CDT ACTIVATED CLOTTING TIME Routine 11/18/2019 12:53 PM CDT ACTIVATED CLOTTING TIME Routine 11/18/2019 12:18 PM CDT ACTIVATED CLOTTING TIME Routine 11/18/2019 11:49 AM CDT ACTIVATED CLOTTING TIME Routine 11/18/2019 11:42 AM CDT ACTIVATED CLOTTING TIME Routine 11/18/2019 11:36 AM CDT GLUCOSE LEVEL, SYRINGE STAT 11/18/2019 11:04 AM CDT IONIZED CALCIUM, ARTERIAL STAT 11/18/2019 11:04 AM CDT HEMOGLOBIN, SYRINGE STAT 11/18/2019 11:04 AM CDT POTASSIUM, SYRINGE STAT 11/18/2019 11:04 AM CDT SODIUM LEVEL, SYRINGE STAT 11/18/2019 11:04 AM CDT ARTERIAL BLOOD GAS, STAT 11/18/2019 CORRECTED 11:04 AM CDT ARTERIAL LINE Routine 11/18/2019 8:48 AM CDT LA AN ELECTIVE Routine 11/18/2019 ENDOTRACHEAL AIRWAY 8:48 AM CDT POC GLUCOSE Routine 11/18/2019 6:14 AM CDT XR CHEST 2 VW Routine 11/13/2019 Preop testing 6:49 PM CDT HEMOGLOBIN A1C Routine 11/13/2019 Preop testing 5:35 PM CDT ECG PRE/POST OP Routine 11/13/2019 Preop testing 5:32 PM CDT PREPARE RBC Routine 11/13/2019 5:12 PM CDT ESTIMATED GFR Routine 11/13/2019 5:12 PM CDT TYPE AND SCREEN Routine 11/13/2019 Preop testing 5:12 PM CDT PARTIAL THROMBOPLASTIN Routine 11/13/2019 Preop t esting TIME (PTT) 5:12 PM CDT PROTHROMBIN TIME WITH INR Routine 11/13/2019 Preo p testing 5:12 PM CDT BASIC METABOLIC PANEL Routine 11/13/2019 Preop te sting 5:12 PM CDT HC COMPLETE BLD COUNT Routine 11/13/2019 Preop te sting W/AUTO DIFF 5:12 PM CDT COVID-19 QUALITATIVE PCR Routine 11/13/2019 Preop testing 5:03 PM CDT after 01/22/2019 Results * POC glucose (11/24/2019 11:16 AM CDT) Only the most recent of 34 results within the time period is included. [facility] POC glucose 208 (H) 65 - 99 mg/dL [facility] Comment: [facility] [employer] Name: Keaton Yee [facility] Device ID: [id number] Chartable: [facility] Notified RN Specimen Blood Performing Organization Address City/State/Zipcode Ph one Number [facility] DEPARTMENT OF [address] [place] [address] PATHOLOGY AND GENOMIC MEDICINE [address] * CBC with platelet and differential (11/24/2019 4:45 AM CDT) Only the most recent of 7 results within the time period is included. [facility] WBC 5.65 4.50 - 11.00 k/uL [facility] RBC 2.50 (L) 4.20 - 5.50 m/uL [facility] HGB 7.5 (L) 12.0 - 16.0 g/dL [facility] HCT 23.4 (L) 37.0 - 47.0 % [facility] MCV 93.6 82.0 - 100.0 fL [facility] MCH 30.0 27.0 - 34.0 pg [facility] MCHC 32.1 31.0 - 37.0 g/dL [facility] RDW - SD 46.9 37.0 - 55.0 fL [facility] MPV 8.9 8.8 - 13.2 fL [facility] Platelet count 380 150 - 400 k/uL [facility] Nucleated RBC 0.00 /100 WBC [facility] Neutrophils 59.9 39.0 - 69.0 % [facility] Lymphocytes 25.3 25.0 - 45.0 % [facility] Monocytes 10.4 (H) 0.0 - 10.0 % [facility] Eosinophils 3.7 0.0 - 5.0 % [facility] Basophils 0.5 0.0 - 1.0 % [facility] Immature 0.2Comment: "Immature 0.0 - 1.0 % [facility] granulocytes granulocytes" (promyelocytes, METHOD IST myelocytes, metamyelocytes) HOSPITAL Specimen Blood Performing Organization Address City/[facility] one Number [facility] DEPARTMENT OF [address] [place] [address] PATHOLOGY AND [facility] MEDICINE [address] * Estimated GFR (11/24/2019 4:00 AM CDT) Only the most recent of 8 results within the time period is included. [facility] Estimated GFR >=90 mL/min/1.73 m2 [facility] Comment: [facility] Interpretation G1 >=90 Normal or high G2 60-89 Mildly decreased G3a 45-59 Mildly to moderately decreased G3b 30-44 Moderately to severely decreased G4 15-29 Severely decreased G5 <15 Kidney failure The eGFR was calculated using the Chronic Kidney Disease Epidemiology Collaboration (CKD-EPI) equation. Interpretation is based on recommendations of the National Kidney Foundation-Kidney Disease Outcomes Quality Initiative (NKF-KDOQI) published in 2014. Specimen Performing Organization Address City/[facility] Ph one Number [facility] DEPARTMENT OF [address] [place] [address] PATHOLOGY AND GENOMIC MEDICINE [address] * Basic metabolic panel (11/24/2019 4:00 AM CDT) Only the most recent of 8 results within the time period is included. [facility] Sodium 134 (L) 135 - 148 mEq/L [facility] Potassium 4.0 3.5 - 5.0 mEq/L [facility] Chloride 99 98 - 112 mEq/L [facility] CO2 22 (L) 24 - 31 mEq/L [facility] Anion gap 13@ANIO 7 - 15 mEq/L [facility] BUN 14 8 - 23 mg/dL [facility] Creatinine 0.51 0.50 - 0.90 mg/dL [facility] Glucose 145 (H) 65 - 99 mg/dL [facility] Calcium 9.9 8.8 - 10.2 mg/dL [facility] Specimen Performing Organization Address [facility] Ph one Number [facility] DEPARTMENT OF [address] [place] [address] PATHOLOGY AND GENOMIC MEDICINE [address] * Phosphorus level (11/20/2019 4:30 AM CDT) Only the most recent of 3 results within the time period is included. Phosphorus 2.3 (L) 2.4 - 4.5 mg/dL [facility] Specimen Blood Performing Organization Address [facility] Ph one Number [facility] DEPARTMENT OF [address] [place] [address] PATHOLOGY AND GENOMIC MEDICINE [address] * Magnesium level (11/20/2019 4:30 AM CDT) Only the most recent of 3 results within the time period is included. Magnesium 1.7 1.6 - 2.4 mg/dL [facility] Specimen Blood Performing Organization Address [facility] [place] Ph one [place] [facility] DEPARTMENT OF [address] [place] [address] PATHOLOGY AND GENOMIC MEDICINE [address] * Ionized calcium (11/20/2019 4:30 AM CDT) Only the most recent of 2 results within the time period is included. pH 7.54 [facility] Ionized calcium 1.14 1.11 - 1.32 mmol/L [facility] Specimen Blood Performing Organization Address [facility] [place] [facility] Ph one Number [facility] DEPARTMENT OF [address] [place] [address] PATHOLOGY AND GENOMIC MEDICINE [address] * Partial thromboplastin time, activated (11/20/2019 4:25 AM CDT) Only the most recent of 4 results within the time period is included. PTT 44.0 (H) 23.0 - 36.0 sec [facility] Comment: [facility] PTT therapeutic range for HOSPITAL unfractionated heparin is 61.0-112.0 seconds which corresponds to Anti-Xa 0.3-0.7 U/ml. Specimen Blood Performing Organization Address [facility] one Number [facility] DEPARTMENT OF [address] [place] [address] PATHOLOGY AND GENOMIC MEDICINE [facility] [address] [place] [id number] [facility]PITAL * XR Chest 1 Vw Portable (11/19/2019 4:52 AM CDT) Only the most recent of 2 results within the time period is included. Specimen Narrative Performed At EXAMINATION: XR CHEST 1 VW PORTABLE [facility] CLINICAL HISTORY: ICU pt stable wit h no clinical status changes IMPRESSION: Follow-up exam demonstrates no interval change, and no new infiltrate. [facility]-[id number] Procedure Note Hm Interface, Radiology Results Incoming - 11/19/2019 6:21 AM CDT EXAMINATION: XR CHEST 1 VW PORTABLE CLINICAL HISTORY: ICU pt stable with no clinical status changes IMPRESSION: Follow-up exam demonstrates no interval change, and no new infiltrate. [facility]-[id number] Performing Organization Address [facility] one Number [facility] [address] [place] [address] * ECG 12 lead (11/19/2019 4:41 AM CDT) Only the most recent of 2 results within the time period is included. Ventricular 82 [facility]USE rate Atrial rate 82 [facility] LA interval 172 [facility] QRSD interval 84 [facility] QT interval 380 [facility] QTC interval 443 [facility] P axis 1 67 [facility] QRS axis 1 58 [facility] T wave axis 65 [facility] EKG impression Normal sinus rhythm-Anterior [facility] MUSE infarct , age undetermined-Abnormal ECG-In automated comparison with ECG of 18-NOV-2019 14:25,-Anterior infarct is now present-Nonspecific T wave abnormality now evident in Anterior leads- Specimen Narrative Performed At This result has an attachment that is n ot available. Performing Organization Address [facility] one Number [facility] MUSE [address] [place] [address] * Prothrombin time with INR (11/19/2019 12:15 AM CDT) Only the most recent of 3 results within the time period is included. [facility] Prothrombin 15.1 (H) 11.5 - 14.5 sec [facility] INR 1.2 [facility] Comment: [facility] International Normalized HOSPITAL Ratio (INR) is a therapeutic monitoring tool for patients who are stable on oral anticoagulant therapy. An INR of 2.0-3.0 is suggested for deep vein thrombosis/pulmonary embolism. Specimen Blood Performing Organization Address City/[facility] Ph one Number [facility] DEPARTMENT OF [address] [place] [address] PATHOLOGY AND GENOMIC MEDICINE [address] * Anti Xa, unfractionated (11/18/2019 2:24 PM CDT) [facility] Anti Xa, <0.10 (L)Comment: Therapeutic 0.30 - 0.70 U/mL [facility] unfractionated Range: 0.30 - 0.70 U/mL [facility] Specimen Blood Performing Organization Address City/[facility] [place] [facility] Ph one Number [facility] DEPARTMENT OF [address] [place] [address] PATHOLOGY AND GENOMIC MEDICINE [address] * Fibrinogen (11/18/2019 2:24 PM CDT) [facility] Fibrinogen 362 200 - 450 mg/dL [facility] Specimen Blood Performing Organization Address City/[facility] Ph one Number [facility] DEPARTMENT OF [address] [place] [address] PATHOLOGY AND GENOMIC MEDICINE [address] * CBC hemogram (11/18/2019 2:24 PM CDT) [facility] WBC 4.23 (L) 4.50 - 11.00 k/uL [facility] RBC 2.95 (L) 4.20 - 5.50 m/uL [facility] HGB 9.0 (L) 12.0 - 16.0 g/dL [facility] HCT 26.2 (L) 37.0 - 47.0 % [facility] MCV 88.8 82.0 - 100.0 fL [facility] MCH 30.5 27.0 - 34.0 pg [facility] MCHC 34.4 31.0 - 37.0 g/dL [facility] RDW - SD 43.9 37.0 - 55.0 fL [facility] MPV 8.6 (L) 8.8 - 13.2 fL [facility] Platelet count 288 150 - 400 k/uL [facility] Nucleated RBC 0.00 /100 WBC [facility] Specimen Blood Performing Organization Address [facility] one Number [facility] DEPARTMENT OF [address] [place] [address] PATHOLOGY AND [facility] MEDICINE [address] * Ionized calcium, arterial (11/18/2019 2:20 PM CDT) Only the most recent of 2 results within the time period is included. [facility] Ionized 1.09 (L) 1.11 - 1.32 mmol/L [facility] Specimen Blood Performing Organization Address [facility] one Number [facility] DEPARTMENT OF [address] [place] [address] PATHOLOGY AND GENOMIC MEDICINE [address] * Arterial blood gas (11/18/2019 2:20 PM CDT) [facility] pH, arterial 7.48 (H) 7.35 - 7.45 [facility] pCO2, arterial 28 (L) 35 - 45 mmHg [facility] pO2, arterial 191 (H) 80 - 90 mmHg [facility] Bicarbonate, 20.7 (L) 21.0 - 28.0 mmol/L [facility] Base excess, -2 -2 - 2 mEq/L [facility] O2 saturation, 100 95 - 100 % [facility] Specimen Blood Performing Organization Address [facility] one Number [facility] DEPARTMENT OF [address] [place] [address] PATHOLOGY AND [facility] MEDICINE [address] * Activated clotting time (11/18/2019 12:53 PM CDT) Only the most recent of 5 results within the time period is included. Pathologist [facility] Activated 113 96 - 152 sec [facility] clotting time Comment: [facility] [employer] Name: Ignacio Britton [facility] Device ID: [id number] Specimen Performing Organization Address City/[facility] Ph one Number [facility] DEPARTMENT OF [address] [place] [address] PATHOLOGY AND GENOMIC MEDICINE [address] * Sodium level, syringe (11/18/2019 11:04 AM CDT) Sodium, syringe 138 135 - 148 mEq/L [facility] Specimen Blood Performing Organization Address City/[facility] one Number [facility] DEPARTMENT OF [address] [place] [address] PATHOLOGY AND GENOMIC MEDICINE [address] * Potassium, syringe (11/18/2019 11:04 AM CDT) Potassium, 3.8 3.5 - 5.0 mEq/L [facility] Specimen Blood Performing Organization Address [facility]ly [facility] one Number [facility] DEPARTMENT OF [address] [place] [address] PATHOLOGY AND GENOMIC MEDICINE [address] * Hemoglobin, syringe (11/18/2019 11:04 AM CDT) Hemoglobin, 9.4 (L) 12.0 - 16.0 g/dL [facility] Specimen Blood Performing Organization Address [facility] one Number [facility] DEPARTMENT OF [address] [place] [address] PATHOLOGY AND GENOMIC MEDICINE [address] * Glucose level, syringe (11/18/2019 11:04 AM CDT) Glucose, 161 (H) 65 - 99 mg/dL [facility] Specimen Blood Performing Organization Address City/[facility] one Number [facility] DEPARTMENT OF [address] [place] [address] PATHOLOGY AND GENOMIC MEDICINE [address] * Arterial blood gas, corrected (11/18/2019 11:04 AM CDT) pH, arterial 7.51 (H) 7.35 - 7.45 [facility] pCO2, arterial 29 (L) 35 - 45 mmHg [facility] pO2, arterial 343 (H) 80 - 90 mmHg [facility] Temperature, 37.0 Degrees C [facility] O2 saturation, 100 95 - 100 % [facility] arterial [facility] pH, arterial 7.51 [facility] pCO2, arterial 29 mmHg [facility] pO2, arterial 343 mmHg [facility] Base excess, 1 -2 - 2 mEq/L [facility] Specimen Blood Performing Organization Address City/State/[facility] [place] one Number [facility] DEPARTMENT OF [address] [place] [address] PATHOLOGY AND GENOMIC MEDICINE [id number] [place] [address] * Arterial line (11/18/2019 8:48 AM CDT) Narrative Performed At Rolan Sheriff CRNA 8:48 AM Arterial line Performed by: Rolan Sheriff CR NA Authorized by: Rei Valadez M D Patient Location: OR End Time: 11/18/2019 8:33 AM Staff: Anesthesiologist: Rei Valadez MD Resident/ANISHA/AA: Rolan Sheriff CRNA Performed by: Resident/JAVA SYBASE DEVELOPER/AA Pre-procedure: patient identified, IV c hecked, site and side verified, risks and benefits discussed, procedure verified, surgical consent complete, patient position confirmed, m onitors and equipment checked and pre-op evaluation complete MSBT: antiseptic used, all elements of maximal sterile barrier technique followed, hand hygiene performed, cap/g own used by other personnel and solutions labeled Indications: Indications: multiple ABGs and hemody namic monitoring Anesthesia: Anesthesia: General Procedure Details: Arterial Line placement: Placed pos t induction Line placement site: Radial Line placement side: Right Arterial line gauge: 20 G Number of attempts: 1 Ultrasound guidance used: No Post-procedure: Post-procedure: Sterile dressing ap plied Post procedure circulation, sensation , movement: Unchanged Patient tolerance: Patient tolerate d the procedure well with no immediate complications * Airway (11/18/2019 8:48 AM CDT) Narrative Performed At Rolan Sheriff CRNA 8:48 AM Airway Date/Time: 11/18/2019 8:24 AM Performed by: Rolan Sheriff CR NA Authorized by: Rei Valadez M D Location: OR Urgency: Elective Difficult Airway: No Anesthesiologist: Rei Valadez MD Resident/JAVA SYBASE DEVELOPER/AA: Rolan Sheriff CRNA Performed by: resident/JAVA SYBASE DEVELOPER/AA Preoxygenated with 100% O2: Yes C-spine Precautions Maintained Througho ut: Yes Mask Ventilation: Not attempted Final Airway Type: Endotracheal airwa y Final Endotracheal Airway: ETT Cuffed: Yes Technique Used: Direct laryngoscopy Devices/Methods Used in Placement: In tubating stylet Insertion Site: Oral Blade Type: Wall Laryngoscope Blade/Videolaryngoscope Bl brant Size: 2 ETT Size (mm): 7.0 Cuff at minimum occlusion pressure: Yes Measured from: Lips ETT to Lips (cm): 20 Placement Verified by: CO2 detection an d direct visualization Laryngoscopic view: Grade I - full vi ew of glottis Rapid Sequence Induction (RSI): Yes Modified RSI: No Number of Attempts at Approach: 1 Atraumatic; lips, teeth & gums unchange d from preop. * XR Chest 2 Vw (11/13/2019 6:49 PM CDT) Specimen Narrative Performed At EXAMINATION: XR CHEST 2 VW [facility] CLINICAL HISTORY: Z01.818 Encounter for other preprocedural examination, pre-op testing COMPARISON: None. FINDINGS: Two views of the chest demonstrate norm al cardiomediastinal silhouette. Pulmonary vasculature is within normal limits. No consolidation or pleural effusion is seen. There is no evidence of pneumothorax. Regional osseous structures is unremark able. IMPRESSION: No radiographic evidence of acute cardi opulmonary process or active disease of the chest. [id number] Procedure Note Interface, Radiology Results Incoming - 11/13/2019 7:01 PM CDT EXAMINATION: XR CHEST 2 VW CLINICAL HISTORY: Z01.818 Encounter for other preprocedural examination, pre-op testing COMPARISON: None. FINDINGS: Two views of the chest demonstrate normal cardiomediastinal silhouette. Pulmonary vasculature is within normal limits. No consolidation or pleural effusion is seen. There is no evidence of pneumothorax. Regional osseous structures is unremarkable. IMPRESSION: No radiographic evidence of acute cardiopulmonary process or active disease of the chest. [id number] Performing Organization Address City/State/Zipcode Ph one Number [facility] [address] [place] [address] * Hemoglobin A1c (11/13/2019 5:35 PM CDT) Pathologist [facility] Hemoglobin A1C 6.6 (H) 4.0 - 5.6 % [facility] Comment: [facility] HbA1c cutoffs for diagnosing HOSPITAL diabetes: 4.0% - 5.6% = normal 5.7% - 6.4% = increased risk for diabetes (prediabetes)9 >=6.5% = diabetes9 Goals for glycemic control (ADA 2016) < 7.0% Target for non adults with diabetes. More or less stringent targets may be appropriate for individual patients. <7.5% Target for Children and adolescents with type 1 diabetes. Specimen Blood Performing Organization Address City/[facility] [place] one Number [facility] DEPARTMENT OF [address] [place] [address] PATHOLOGY AND GENOMIC MEDICINE [address] * ECG Pre/Post Op (11/13/2019 5:32 PM CDT) Pathologist [facility] Ventricular 85 [facility] rate Atrial rate 85 [facility] LA interval 154 [facility] QRSD interval 78 [facility] QT interval 370 [facility] QTC interval 440 [facility] P axis 1 69 [facility] QRS axis 1 48 [facility] T wave axis 66 [facility] EKG impression Normal sinus rhythm-Normal [facility] MUSE ECG-No previous ECGs available- Specimen Narrative Performed At This result has an attachment that is n ot available. Performing Organization Address [facility] [place] [address] * Prepare RBC (11/13/2019 5:12 PM CDT) Pathologist [facility] Product name Red Blood Cells -1, Leukored [facility] Unit number [id number] [facility] Product code [id number] [facility] Dispense status Returned to BB not transfused [facility] Blood [id number] [facility] expiration date [facility] Blood type code 6200 [facility] Blood type A POSITIVE [facility] Compatibility Compatible [facility] Product name Red Blood Cells -1, Leukored [facility] Unit number [id number] [facility] Product code [id number] [facility] Dispense status Returned to BB not transfused [facility] Blood [id number] [facility] expiration date [facility] Blood type code 6200 [facility] Blood type A POSITIVE [facility] Compatibility Compatible [facility] Specimen Performing Organization Address City/[facility] [place] one Number [facility] DEPARTMENT OF [address] [place] [address] PATHOLOGY AND GENOMIC MEDICINE [address] * Type and screen (11/13/2019 5:12 PM CDT) ABO grouping A [facility] Rh type POS [facility] Antibody screen NEG [facility] (gel) [facility] Specimen Blood Performing Organization Address City/[facility] [place] one Number [facility] DEPARTMENT OF [address] [place] [address] PATHOLOGY AND GENOMIC MEDICINE [address] * COVID-19 qualitative PCR (11/13/2019 5:03 PM CDT) Interpretation Negative results do not CHANDRA preclude 2019-nCoV infection [facility] and should not be used as the HOSPITAL sole basis for treatment or other patient management decisions. Negative results must be combined with clinical observations, patient history, and epidemiological information. COVID-19 Not-Detected Not-Detected [facility] qualitative PCR [facility]PITAL COVID-19 See link below for PDF Lab [facility] qualitative PCR ReportComment: Case Number: [facility] [id number] [facility] Specimen Nasopharyngeal Performing Organization Address [facility] [place] one Number [facility] DEPARTMENT OF [address] [place] [address] PATHOLOGY AND GENOMIC MEDICINE [address] after 01/22/2019 Insurance Type Payer Benefit Subscriber ID Effective Phone Address Plan / Dates Group HMO [employer] C[employer]NA xxxxxxxxxxx 2019-P [employer] resent NG O [id number] Advance Directives For more information, please contact: [phone] Patient Product Introduction Manager Explanation Type Date Recorded Advance Directives, Living Will and Medical Power of Medical Billing Supervisor
--- OUTSIDE RECORDS SUMMARY | 2020-02-12 09:54 | XMS REPORT | Continuity of Care Document ---
Author Author [facility] t Organization [facility] Address 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 Name Role Phone SADIE LOPEZ, ARNETT PCP Didi LOPEZ, SNavneet Rosas Attphys Chandrika LOPEZ, Cindi Attphys Allyson LOPEZ, Ameena Minaya Attphys Kevin Cordova APRN Attphys Didi LOPEZ, Lucian Briseno Attphys Irving GRAY Attphys Unavailable ERIC TOLBERT Admphys Unavailable Payers Payer Name Policy Type Policy Number Effective Date Expiration Date Adalgisa [employer] ADVxxxxxx -PresentO xxxxxxxxxxx 2019 00:00:00 [place] [facility] Problems Condition Name Condition Details Condition Category Status Onset Date Resolution Date Last Treatment Date Treating Clinician Comments Source PAD (peripheral artery disease) PAD (peripheral artery disease) Dis ease Active 2019-11-18 00:00:00 Prateek Isaacs Problem Condition Active [facility] Allergies, Adverse Reactions, Alerts Allergy Name Allergy Type Status Severity Reaction(s) Onset Date Inacti ve Date Treating Clinician Comments Source sulfamethoxazole DA Active SV 2019-12-03 00:00:00 [facility] trimethoprim DA Active 2019-12-03 00:00:00 [facility] Sulfa (Sulfonamide Antibiotics) Propensity to adverse reactions to drug Active Anxiety 2019-11-13 00:00:00 Lindsay Isaacs shrimp Allergy to substance Active RASH 2019-10-21 00:00:00 [facility] TUNA Allergy to substance Active HIVES, RASH 2019-10-21 00:00:00 [facility] Sulfamethoxazole Allergy to substance Active 2018-08-15 00: 00:00 [facility] Trimethoprim Allergy to substance Active 2018-08-15 00:00:0 0 [facility] Enalapril Propensity to adverse reactions Active COUGH 2- 00:00:00 [facility] sulfamethoxazole DA Active 2015-06-25 00:00:[address] [facility] trimethoprim DA Active 2015-06-25 00:00:[address] [facility] Social History Social Habit Start Date Stop Date Quantity Comments Source History SDOH Alcohol Std Drinks Prateek Isaacs History SDOH Alcohol Binge Prateek Isaacs Sex Assigned At [place] rom[place] [facility] Alcohol intake 2019-11-20 00:00:00 2019-11-20 00:00:00 Lifetime non-drinker (finding) Prateek [facility] History SDOH Alcohol Frequency 2019-11-13 00:00:00 2019-11-13 00:00:0 0 1 Prateek Isaacs Smoking Status Start Date Stop Date Source Never smoker Prateek veronica Medications Ordered Medication Name Filled Medication Name Start Date Stop Da te Current Medication? Ordering Clinician Indication Dosage Frequency Signature (SIG) Comments Components Source polyethylene glycol (MIRALAX) 17 gram packet 202 00:00:00 2019-12-25 23:59:00 No 17g QD Take 17 g by mouth daily for 30 days. Prateek Isaacs mupirocin 2 % ointment kit 2019-11-24 14:24:2019-11-24 00:00:00 No Apply topically. Prateek Isaacs acetaminophen (TYLENOL) 500 MG tablet 2019-11-24 14: :2019-11-24 00:00:00 No 500mg Q6H Take 500 mg by mouth every 6 (six) hours as needed for mild pain. Prateek Isaacs aspirin (ECOTRIN) 81 MG enteric coated tablet 20 02-12-11 14::2019-11-24 00:00:00 No 81mg QD Take 81 mg by mouth daily. Prateek Isaacs atorvastatin (LIPITOR) 40 MG tablet 2019-11-24 14:24:08 Yes 40mg QD Take 40 mg by mouth daily. Prateek Isaacs clopidogreL (PLAVIX) 75 mg tablet 2019-11-24 14:24:08 Yes 75mg QD Take 75 mg by mouth daily. Prateek Isaacs metFORMIN (GLUCOPHAGE) 500 mg tablet 2019-11-24 14:24:08 Ye s 500mg Q.5D Take 500 mg by mouth 2 (two) times a day with meals. Prateek Isaacs losartan (COZAAR) 50 MG tablet 2019-11-24 14:24:08 Yes 50mg QD Take 50 mg by mouth daily. Prateek Isaacs amLODIPine (NORVASC) 10 mg tablet 2019-11-24 14:24:08 Yes 10mg QD Take 10 mg by mouth daily. Prateek Isaacs folic acid (FOLVITE) 1 MG tablet 2019-11-24 14:24:08 Yes 1mg QD Take 1 mg by mouth daily. Prateek Isaacs calcium carbonate-vitamin D3 (Calcium 60 0 + D,3,) 600 mg calcium- 200 unit capsule 2019-11-24 14:24:08 Yes Q2D Take by mo uth every other day. Prateek Isaacs cholecalciferol, vitamin D3, 50 mcg (2,000 unit) capsule cap nancy 2019-11-24 14:24:08 Yes 2000U QD Take 2,000 Units by mouth nani ly. Prateek Isaacs famotidine (PEPCID) 20 MG tablet 2019-11-24 14:24:08 Yes 20mg Take 20 mg by mouth as needed for heartburn. Indy Isaacs apixaban (ELIQUIS) 2.5 mg tablet 2019-11-24 00:00:00 2019-12 23:59:00 No 2.5mg Q.5D Take 1 tablet (2.5 m g total) by mouth 2 (two) times a day for 30 days. Prateek Isaacs bisacodyL (DULCOLAX) 10 mg suppository 2019-11-13 2 00:00:00 2019-12-24 23:59:00 No 10mg Q24H Insert 1 suppo sitory (10 mg total) into the rectum daily as needed for constipation for up to 30 days. Prateek Isaacs sennosides-docusate sodium (SENOKOT-S) 8.6-50 mg per tablet 2019-11-24 00:00:00 2019-12-24 23:59:00 No 1{tbl} Q.5D Take 1 tablet by mouth 2 (two) times a day for 30 days. Prateek owens mupirocin (BACTROBAN) 2 % ointment 2019-11-24 00:00:00 202 23:59:00 No [id number] Apply top ically 3 (three) times a day for 14 days. Apply to incisions Prateek Isaacs nitroglycerin (NITROSTAT) 2 % ointment 2019-11-13 2 00:00:00 2019-12-08 23:59:00 No .5[in_us] Q.25D Place 0.5 inch es on the skin every 6 (six) hours for 14 days. Prateek Isaacs acetaminophen-codeine (TYLENOL WITH CODEINE #3) 300-30 mg pe r tablet 2019-11-24 00:00:00 2019-11-29 23:59:00 No acute pain 1{tbl} Q6H Take 1 tablet by mouth every 6 (six) hours as needed for moderate pain for up to 5 days .acute pain. Prateek Isaacs Acetaminophen (Tylenol Extra Strength) 500 Mg TABLET A cetaminophen (Tylenol Extra Strength) 500 Mg TABLET Yes 2 As Needed as needed for Moderate Pain (4-6) [facility] Amlodipine Besylate (Norvasc) 10 Mg TAB Amlodipine Besylate (Norvasc) 10 Mg TAB Yes 10 Daily [facility] Calcium Carbonate/Vitamin D3 (Oyster Shell Calcium + D Tab) 1 Each TABLET Calcium Carbonate/Vitamin D3 (Oyster Shell Calcium + D Tab) 1 Each TABLET Yes 1 Use As Directed [facility] Cholecalciferol (Vitamin D3) (Vitamin D3) 2,000 Unit T AB.CHEW Cholecalciferol (Vitamin D3) (Vitamin D3) 2,000 Unit TAB.CHEW Yes 2000 Daily [facility] Famotidine Famotidine Yes 20 Daily as needed fo r Indigestion [facility] Folic Acid Folic Acid Yes 1 Twice A Day [facility] Loperamide Hcl (Loperamide) 2 Mg TABLET Loperamide Hcl (Lorie ramide) 2 Mg TABLET Yes 2 As Needed as needed for Diarrhe a [facility] Losartan Potassium Losartan Potassium Yes 50 Da ofelia [facility] Metformin Hcl Metformin Hcl Yes 1000 Daily [facility] Metformin Hcl Metformin Hcl Yes 500 Bedtime [facility] Mupirocin Mupirocin Yes 1 Daily [facility] Aspirin (Adult Low Dose Aspirin Ec) 81 Mg TABLET.DR Arroyo pirin (Adult Low Dose Aspirin Ec) 81 Mg TABLET. 2019-10-21 00:00:00 No 81 Daily [facility] Glimepiride (Amaryl) 2 Mg TABLET Glimepiride (Amaryl) 2 Mg TABLE T 2019-10-21 00:00:00 No 2 Daily [facility] Hydroxychloroquine Sulfate (Plaquenil) 200 Mg TAB Hydr oxychloroquine Sulfate (Plaquenil) 200 Mg TAB 2019-10-21 00:00:00 No 200 D aily [facility] Levothyroxine Sodium (Levoxyl) 50 Mcg TABLET Levothyro xine Sodium (Levoxyl) 50 Mcg TABLET 2019-10-21 00:00:00 No 50 Daily [facility] Metformin Hcl (Glucophage Xr) 500 Mg TAB.ER.24H Metfor min Hcl (Glucophage Xr) 500 Mg TAB.ER.24H 2019-10-21 00:00:00 No 500 Twice A Day [facility] Methotrexate Sodium (Methotrexate) 2.5 Mg TAB.DS.PK Me thotrexate Sodium (Methotrexate) 2.5 Mg TAB.DS.PK 2019-10-21 00:00:00 No 20 Weekly [facility] Vital Signs Vital Name Observation Time Observation Value Comments Source Body Temperature 2020-02-01 11:07:00 99.0 [degF] [facility] BMI (Body Mass Index) 2020-01-31 00:07:00 16.9 kg/m2 [facility] Weight 2020-01-23 01:00:00 85 [lb_av] [facility] Systolic blood pressure 2019-11-24 11:15:15 123 mm[Hg] Chandra [facility] Diastolic blood pressure 2019-11-24 11:15:15 60 mm[Hg] [facility] Heart rate 2019-11-24 11:15:15 94 /min [facility] Body temperature 2019-11-24 11:15:15 36.61 Melissa Enma charlene [facility] Respiratory rate 2019-11-24 11:15:15 18 /min Enma charlene [facility] Oxygen saturation in Arterial blood by Pulse oximetry 11-23 11:15:15 100 /min [facility] Body weight 2019-11-24 05:00:00 [facility] 2019-11-24 05:00:00 18.18 [facility] 2019-11-18 06:15:00 149.9 cm Prateek Isaacs Procedures Procedure Date / Time Performed Performing Clinician Nicole e POC GLUCOSE 2019-11-24 11:16:00 Cindi Mao [facility]ist POC GLUCOSE 2019-11-24 07:55:00 Cindi Mao [facility] odist HC COMPLETE BLD COUNT W/AUTO DIFF 2019-11-24 04:45:00 Adali Mao BASIC METABOLIC PANEL 2019-11-24 04:00:00 Cindi Mao ESTIMATED GFR 2019-11-24 04:00:00 Cindi Mao Meth odist POC GLUCOSE 2019-11-23 21:13:00 Cindi Mao Meth odist POC GLUCOSE 2019-11-23 17:16:00 Cindi Mao Meth odist POC GLUCOSE 2019-11-23 11:17:00 MaoCindi [place] [facility] POC GLUCOSE 2019-11-23 07:27:00 MaoCindi [place] [facility] HC COMPLETE BLD COUNT W/AUTO DIFF 2019-11-23 04:30:00 MaoAdali staples Chandra [facility] BASIC METABOLIC PANEL 2019-11-23 04:30:00 MaoCindi staplesanastasia Isaacs ESTIMATED GFR 2019-11-23 04:30:00 MaoCindi [place] [facility] POC GLUCOSE 2019-11-23 04:23:00 MaoCindi [place] [facility] POC GLUCOSE 2019-11-23 01:07:00 MaoCindi [place] [facility] POC GLUCOSE 2019-11-23 01:05:00 MaoCindi [place] [facility] POC GLUCOSE 2019-11-22 21:32:00 MaoCindi [place] [facility] CONSULT TO OSTOMY CARE NURSE 2019-11-22 18:31:01 Ale Nicole [facility] POC GLUCOSE 2019-11-22 17:48:00 MaoCindi [place] [facility] POC GLUCOSE 2019-11-22 11:49:00 MaoCindi [place] [facility] POC GLUCOSE 2019-11-22 07:37:00 MaoCindi [place] [facility] POC GLUCOSE 2019-11-22 04:42:00 MaoCindi [place] [facility] BASIC METABOLIC PANEL 2019-11-22 04:40:00 Misty Maravilla HC COMPLETE BLD COUNT W/AUTO DIFF 2019-11-22 04:40:00 Jesica Maravilla ESTIMATED GFR 2019-11-22 04:40:00 Misty Maravilla ethodist POC GLUCOSE 2019-11-22 00:02:00 MaoCindi [place] [facility] POC GLUCOSE 2019-11-21 21:21:00 MaoCindi [place] [facility] POC GLUCOSE 2019-11-21 18:00:00 MaoCindi [place] [facility] POC GLUCOSE 2019-11-21 12:19:00 MaoCindi [place] [facility] POC GLUCOSE 2019-11-21 08:04:00 MaoCindi staples Meth odist BASIC METABOLIC PANEL 2019-11-21 03:15:00 Misty Maravilla HC COMPLETE BLD COUNT W/AUTO DIFF 2019-11-21 03:15:00 Jesica Maravilla ESTIMATED GFR 2019-11-21 03:15:00 Misty Maravilla ethodist POC GLUCOSE 2019-11-20 20:53:00 MaoCindi staples Meth odist POC GLUCOSE 2019-11-20 17:36:00 MaoCindi staples Chandra Meth odist POC GLUCOSE 2019-11-20 13:47:00 MaoCindi staples [place] [facility] POC GLUCOSE 2019-11-20 08:03:00 MaoCindi staples odist MAGNESIUM LEVEL 2019-11-20 04:30:00 Misty Maravilla ethodist IONIZED CALCIUM 2019-11-20 04:30:00 Misty Maravilla ethodist PHOSPHORUS LEVEL 2019-11-20 04:30:00 Misty Maravilla HC COMPLETE BLD COUNT W/AUTO DIFF 2019-11-20 04:30:00 Jesica Maravilla BASIC METABOLIC PANEL 2019-11-20 04:30:00 Misty Maravilla ESTIMATED GFR 2019-11-20 04:30:00 Misty Maravilla ethodist PARTIAL THROMBOPLASTIN TIME (PTT) 2019-11-20 04:25:00 Jesica Maravilla POC GLUCOSE 2019-11-19 21:16:00 MaoCindi staples Meth odist POC GLUCOSE 2019-11-19 16:24:00 MaoCindi staples Ch[facility] Meth odist POC GLUCOSE 2019-11-19 14:18:00 MaoCindi staples Meth odist POC GLUCOSE 2019-11-19 11:47:00 MaoCindi staples Chandra Meth odist POC GLUCOSE 2019-11-19 07:42:00 MaoCindi staples Meth odist XR CHEST 1 VW PORTABLE 2019-11-19 04:52:00 Dominique Estrella ECG 12-LEAD 2019-11-19 04:41:39 Dominique Estrella on [facility] POC GLUCOSE 2019-11-19 03:43:00 MaoCindi staples Meth odist BASIC METABOLIC PANEL 2019-11-19 00:15:00 Ricardo Joe [facility] PARTIAL THROMBOPLASTIN TIME (PTT) 2019-11-19 00:15:00 Ricardo Cdaena [facility] HC COMPLETE BLD COUNT W/AUTO DIFF 2019-11-19 00:15:00 Leffall, B martinez Isaacs IONIZED CALCIUM 2019-11-19 00:15:00 LeffallDominique on [facility] MAGNESIUM LEVEL 2019-11-19 00:15:00 LeffallDominique on [facility] PHOSPHORUS LEVEL 2019-11-19 00:15:00 Dominique Estrella [facility] PROTHROMBIN TIME WITH INR 2019-11-19 00:15:00 Dominique Estrella ESTIMATED GFR 2019-11-19 00:15:00 LefDominique snowden on [facility] POC GLUCOSE 2019-11-19 00:00:00 ChandrikaCindi Meth odist POC GLUCOSE 2019-11-18 19:57:00 MaoCindi hinojosa Meth odist POC GLUCOSE 2019-11-18 17:42:00 ChandrikaCindi Meth odist ECG 12-LEAD 2019-11-18 14:25:52 Ricardo Joe [facility] XR CHEST 1 VW PORTABLE 2019-11-18 14:25:00 Ricardo Joe [facility] [place] BASIC METABOLIC PANEL 2019-11-18 14:24:00 Ricardo Joe [facility] [place] CBC HEMOGRAM 2019-11-18 14:24:00 Ricardo Joe [facility] FIBRINOGEN 2019-11-18 14:24:00 Ricardo Joe [place] [place] MAGNESIUM LEVEL 2019-11-18 14:24:00 Ricardo Joe [facility] [place] PARTIAL THROMBOPLASTIN TIME (PTT) 2019-11-18 14:24:00 Danielemarlon cochranRicardo PHOSPHORUS LEVEL 2019-11-18 14:24:00 Ricardo Joe PROTHROMBIN TIME WITH INR 2019-11-18 14:24:00 Ricardo Joe ESTIMATED GFR 2019-11-18 14:24:00 Ricardo Joe ANTI XA, UNFRACTIONATED 2019-11-18 14:24:00 Ricardo Joe ARTERIAL BLOOD GAS 2019-11-18 14:20:00 Ricardo Joe IONIZED CALCIUM, ARTERIAL 2019-11-18 14:20:00 Ricardo Joe POC GLUCOSE 2019-11-18 14:05:00 Eric Tolbert ACTIVATED CLOTTING TIME 2019-11-18 12:53:00 Eric Tolbert ACTIVATED CLOTTING TIME 2019-11-18 12:18:00 Eric Tolbert ACTIVATED CLOTTING TIME 2019-11-18 11:49:00 Eric Tolbert ACTIVATED CLOTTING TIME 2019-11-18 11:42:00 Eric Tolbert ACTIVATED CLOTTING TIME 2019-11-18 11:36:00 Eric Tolbert ARTERIAL BLOOD GAS, CORRECTED 2019-11-18 11:04:00 Shilo Tolbert SODIUM LEVEL, SYRINGE 2019-11-18 11:04:00 Eric Tolbert POTASSIUM, SYRINGE 2019-11-18 11:04:00 Eric Tolbert [facility] HEMOGLOBIN, SYRINGE 2019-11-18 11:04:00 Eric Tolbert IONIZED CALCIUM, ARTERIAL 2019-11-18 11:04:00 Eric Tolbert GLUCOSE LEVEL, SYRINGE 2019-11-18 11:04:00 Eric Tolbert [facility] ARTERIAL LINE 2019-11-18 08:48:33 Rolan Sheriff [place] AN ELECTIVE ENDOTRACHEAL AIRWAY 2019-11-18 08:48:02 Rolan Sheriff POC GLUCOSE 2019-11-18 06:14:00 Eric Tolbert XR CHEST 2 VW 2019-11-13 18:49:21 Eric Tolbert HEMOGLOBIN A1C 2019-11-13 17:35:00 Kevin Cordova ECG PRE/POST OP 2019-11-13 17:32:49 Eric Tolbert HC COMPLETE BLD COUNT W/AUTO DIFF 2019-11-13 17:12:00 Marleny Tolbert BASIC METABOLIC PANEL 2019-11-13 17:12:00 Eric Tolbret PROTHROMBIN TIME WITH INR 2019-11-13 17:12:00 Eric Tolbert PARTIAL THROMBOPLASTIN TIME (PTT) 2019-11-13 17:12:00 Marleny Tolbert TYPE AND SCREEN 2019-11-13 17:12:00 Eric Tolbert ESTIMATED GFR 2019-11-13 17:12:00 Eric Tolbert PREPARE RBC 2019-11-13 17:12:00 Eric Tolbert COVID-19 QUALITATIVE PCR 2019-11-13 17:03:[address] CATHETER IN [place] 2019-10-23 00:00:00 [facility] CONTRAST EXAM ABDOMINL AORTA 2019-10-23 00:00:00 [facility] ARTERY X-RAYS ARMS/LEGS 2019-10-23 00:00:00 [facility] Plan of Care Planned Activity Planned Date Details Comments Source Future Scheduled Test 2020-02-13 00:00:00 INFLUENZA VACCINE [code = INFLUENZA VACCINE] Prateek Isaacs Future Scheduled Test 2012 00:00:00 65+ PNEUMOCOCCAL V ACCINE (1 of 2 - PCV13) [code = 65+ PNEUMOCOCCAL VACCINE (1 of 2 - PCV13)] Prateek Isaacs Future Scheduled Test 1997 00:00:00 BREAST CANCER SCRE ENING [code = BREAST CANCER SCREENING] [facility] Future Scheduled Test 1997 00:00:00 COLONOSCOPY SCREEN ING [code = COLONOSCOPY SCREENING] [facility] Scheduled Test 1997 00:00:00 SHINGLES VACCINES (#1) [code = SHINGLES VACCINES (#1)] [facility] Instructions Lower Limb Amputation (Surgical) [facility] Encounters Start Date/Time End Date/Time Encounter Type Admission Type Attendi [facility] Care Department Encounter ID Source 2020-01-23 00:00:00 2020-02-01 17:41:00 Discharged Inpatient [facility] [id number] [facility] 2019-11-18 00:00:00 2019-11-24 00:00:00 Inpatient CINDI [facility] [id number] [facility] 2019-11-13 00:00:00 2019-11-13 00:00:00 Outpatient MERRY TOLBERT [facility] [id number] [facility] 2019-11-13 00:00:00 2019-11-13 00:00:00 Outpatient MERRY TOLBERT [facility] [id number] [facility] 2019-10-23 06:20:00 2019-10-23 06:20:00 Registered Surgical Day Care [facility] [id number] [facility] 2018-08-15 12:20:00 2018-08-15 17:41:00 Departed Emergency Room [address] [facility] [id number] [facility] Results Test Description Test Time Test Comments Results Result Comments Source Capillary blood glucose measurement by glucometer (mas s/volume) 2020-02-01 14:55:00 Test Item Bedside Glucose (test code = 61525-6) 154 70-120 Meter ID: [id number] [facility] HospitalBlood leukocytes automated count (number/volume)2020-02-01 05:08:00* Test Item Value Reference Range Interpretation Comments White Blood Count (test code = 6690-2) 3.20 4.8-10.8 [facility] count (number/volume)2020-02-01 05:08:00* Test Item Value Reference Range Interpretation Comments Red Blood Count (test code = 789-8) 2.74 3.6-5.1 [facility] hemoglobin measurement (moles/volume)2020-02-01 05:08:00* Test Item Value Reference Range Interpretation Comments Hemoglobin (test code = 97742-4) 8.0 12.0-16.0 [facility] blood hematocrit (volume fraction)2020-02-01 05:08:00* Test Item Value Reference Range Interpretation Comments Hematocrit (test code = 4544-3) 25.2 34.2-44.1 [facility] erythrocyte mean corpuscular [id number] 05:08:00* Test Item Value Reference Range Interpretation Comments Mean Corpuscular Volume (test code = 787-2) 92.0 81-99 [facility] erythrocyte mean corpuscular hemoglobin (mass per erythrocyte)2020-02-01 05:08:00* Test Item Value Reference Range Interpretation Comments Mean Corpuscular Hemoglobin (test code = 785-6) 29.2 28-32 [facility] erythrocyte mean corpuscular hemoglobin concentration measurement (mass/volume)2020-02-01 05:08:00* Test Item Value Reference Range Interpretation Comments Mean Corpuscular Hemoglobin Concent (test code = 786-4) 31.7 31-35 [facility] HospitalRDW [id number] 05:08:00* Test Item Value Reference Range Interpretation Comments Red Cell Distribution Width (test code = 96738-2) 14.2 11.7 -14.4 [facility] Hospital[facility] blood platelet count (count/volume)2020-02-01 05:08:00* Test Item Value Reference Range Interpretation Comments Platelet Count (test code = 777-3) 343 140-360 [facility] Hospital[facility] blood segmented neutrophil count as percentage of total [id number] 05:08:00* Test Item Value Reference Range Interpretation Comments Neutrophils (%) (Auto) (test code = 33637-3) 58.4 38.7-80.0 [facility] Hospital[facility] blood lymphocyte count as percentage ot total [id number] 05:08:00* Test Item Value Reference Range Interpretation Comments Lymphocytes (%) (Auto) (test code = 736-9) 25.0 18.0-39.1 [facility] blood monocyte count as percentage of total [id number] 05:08:00* Test Item Value Reference Range Interpretation Comments Monocytes (%) (Auto) (test code = 5905-5) 13.8 4.4-11.3 [facility] HospitalAutformerly [facility] blood eosinophil count as percentage of total [id number] 05:08:00* Test Item Value Reference Range Interpretation Comments Eosinophils (%) (Auto) (test code = 713-8) 2.2 0.0-6.0 [facility] Hospital[facility] blood basophil count as percentage of total [id number] 05:08:00* Test Item Value Reference Range Interpretation Comments Basophils (%) (Auto) (test code = 706-2) 0.3 0.0-1.0 [facility] HospitalFluoroscopic procedure less than one hour [id number] 05:08:00* Test Item Value Reference Range Interpretation Comments IM GRANULOCYTES % (test code = IM GRANULOCYTES %) 0.3 0.0- 1.0 [facility] Hospital[facility] blood neutrophil count 2020-02-01 05:08:00* Test Item Value Reference Range Interpretation Comments Neutrophils # (Auto) (test code = 751-8) 1.9 2.1-6.9 [facility] Hospital[facility] lymphocytes count (number/volume) 2020-02-01 05:08:00* Test Item Value Reference Range Interpretation Comments Lymphocytes # (Auto) (test code = 67583-2) 0.8 1.0-3.2 [facility] Hospital[facility] monocytes automated count (number/volume)2020-02-01 05:08:00* Test Item Value Reference Range Interpretation Comments Monocytes # (Auto) (test code = 742-7) 0.4 0.2-0.8 [facility] HospitalAutom[facility] blood eosinophil count 2020-02-01 05:08:00* Test Item Value Reference Range Interpretation Comments Eosinophils # (Auto) (test code = 711-2) 0.1 0.0-0.4 [facility] blood basophil count (count/volume)2020-02-01 05:08:00* Test Item Value Reference Range Interpretation Comments Basophils # (Auto) (test code = 704-7) 0.0 0.0-0.1 [facility] HospitalFluoroscopic procedure less than one hour [id number] 05:08:00* Test Item Value Reference Range Interpretation Comments Absolute Immature Granulocyte (auto (hetal t code = Absolute Immature Granulocyte (auto) 0.01 0-0.1 [facility] HospitalFluoroscopic procedure less than one hour [id number] 05:08:00* Test Item Value Reference Range Interpretation Comments Differential Total Cells Counted (test code = Differmicaela tial Total Cells Counted) 100 [facility] blood neutrophils/100 leukocytes 2020-02-01 05:08:00* Test Item Value Reference Range Interpretation Comments Neutrophils % (Manual) (test code = 51595-3) 62 40-74 [facility] blood lymphocytes/100 leukocytes 2020-02-01 05:08:00* Test Item Value Reference Range Interpretation Comments Lymphocytes % (Manual) (test code = 737-7) 30 19-48 [facility] blood monocytes/100 leukocytes 2020-02-01 05:08:00* Test Item Value Reference Range Interpretation Comments Monocytes % (Manual) (test code = 744-3) 5 3.4-9.0 [facility] blood eosinophil count as percentage of total [id number] 05:08:00* Test Item Value Reference Range Interpretation Comments Eosinophils % (Manual) (test code = 714-6) 3 0-7 [facility] platelets count by estimate (number/volume)2020-02-01 05:08:00* Test Item Value Reference Range Interpretation Comments Platelet Estimate (test code = 38061-6) ADEQUATE [facility] HospitalPlatelet [id number] 05:08:00* Test Item Value Reference Range Interpretation Comments Platelet Morphology Comment (test code = 00573-3) NORMAL [facility] [facility] [id number] 05:08:00* Test Item Value Reference Range Interpretation Comments Red Cell Morphology Comment (test code = 6742-1) NORMAL [facility] sodium [facility] (moles/volume)2020-02-01 05:08:00* Test Item Value Reference Range Interpretation Comments Sodium Level (test code = 2951-2) 131 136-145 [facility] potassium measurement (moles/volume)2020-02-01 05:08:00* Test Item Value Reference Range Interpretation Comments Potassium Level (test code = 2823-3) 4.2 3.5-5.1 [facility] chloride measurement (moles/volume)2020-02-01 05:08:00* Test Item Value Reference Range Interpretation Comments Chloride Level (test code = 2075-0) 99 98-107 [facility] carbon dioxide, total measurement (moles/volume)2020-02-01 05:08:00* Test Item Value Reference Range Interpretation Comments Carbon Dioxide Level (test code = 2028-9) 25 22-29 [facility] plasma anion [id number] 05:08:00* Test Item Value Reference Range Interpretation Comments Anion Gap (test code = 62880-5) 11.2 8-16 [facility] urea nitrogen measurement (mass/volume)2020-02-01 05:08:00* Test Item Value Reference Range Interpretation Comments Blood Urea Nitrogen (test code = 3094-0) 14 7-26 [facility] creatinine measurement (mass/volume)2020-02-01 05:08:00* Test Item Value Reference Range Interpretation Comments Creatinine (test code = 2160-0) 0.56 0.57-1.11 [facility] plasma urea nitrogen/creatinine mass [id number] 05:08:00* Test Item Value Reference Range Interpretation Comments BUN/Creatinine Ratio (test code = 3097-3) 25 6-25 [facility] HospitalEstimated glomerular filtration rate (GFR) nutomzvrmotit1000-45-07 05:08:00* Test Item Value Reference Range Interpretation Comments Estimat Glomerular Filtration Rate (test code = 922108744) > 60 >60 Ranges were taken from the National Kidney Disease Education Program and the [facility] Kidney Foundation literature.Reference ranges:60 or greater: Qddgqz98-01 ( for 3 consecutive months): Chronic kidney disease 15 or less: Kidney failureHarris Health System Ben [facility] HospitalGlucose [id number] 05:08:00* Test Item Value Reference Range Interpretation Comments Glucose Level (test code = KDO3281) 119 74-118 [facility] calcium measurement (mass/volume)2020-02-01 05:08:00* Test Item Value Reference Range Interpretation Comments Calcium Level (test code = 09666-6) 8.7 8.4-10.2 [facility] plasma total bilirubin measurement (mass/volume)2020-02-01 05:08:00* Test Item Value Reference Range Interpretation Comments Total Bilirubin (test code = 1975-2) 0.2 0.2-1.2 [facility] HospitalFluoroscopic procedure less than one hour lgcsozlz9363-96-77 05:08:00* Test Item Value Reference Range Interpretation Comments Aspartate Amino Transf (AST/SGOT) (test code = Aspartate Amino Transf (AST/SGOT)) 19 5-34 [facility] or plasma alanine aminotransferase measurement (enzymatic activity/volume)2020-02-01 05:08:00* Test Item Value Reference Range Interpretation Comments Alanine Aminotransferase (ALT/SGPT) (test code = 1742-6) 11 0-55 [facility] plasma protein measurement (mass/volume)2020-02-01 05:08:00* Test Item Value Reference Range Interpretation Comments Total Protein (test code = 2885-2) 6.3 6.5-8.1 [facility] plasma albumin measurement (mass/volume)2020-02-01 05:08:00* Test Item Value Reference Range Interpretation Comments Albumin (test code = 1751-7) 2.1 3.5-5.0 [facility] HospitalPlasma globulin measurement (mass/volume) 2020-02-01 05:08:00* Test Item Value Reference Range Interpretation Comments Globulin (test code = 15675-0) 4.2 2.3-3.5 [facility] plasma albumin/globulin mass uikpa3849-56-82 05:08:00* Test Item Value Reference Range Interpretation Comments Albumin/Globulin Ratio (test code = 1759-0) 0.5 0.8-2.0 [facility]er[facility] or plasma alkaline phosphatase measurement (enzymatic activity/volume)2020-02-01 05:08:00* Test Item Value Reference Range Interpretation Comments Alkaline Phosphatase (test code = 6768-6) 49 40-150 [facility] HospitalManual basophil zcdeplaymo7773-28-97 04:50:00* Test Item Value Reference Range Interpretation Comments Basophils % (Manual) (test code = 90358-1) 1 0-1.5 [facility]er[facility] plasma magnesium measurement (mass/volume)2020-01-30 04:50:00* Test Item Value Reference Range Interpretation Comments Magnesium Level (test code = 68549-4) 1.7 1.3-2.1 [facility] HospitalFluoroscopic procedure less than one hour whlyrzby5674-57-79 03:10:00* Test Item Value Reference Range Interpretation Comments Coronavirus (PCR) (test code = Coronavirus (PCR)) NOT DETECTED NOTD ETECTED SARS-COV-2 (COVID19), HIGHRISK, RT-PCRNegative results do not preclude SARS-CoV- 2 infection and should not be used as the sole basis for patient management deci sions. Negative results must be combined with clinical observations, patient his tory, and epidemiological information. Optimum specimen types and timing for pea k viral levels during infections caused by SARS-CoV-2 have not been determined. Collection of multiple specimens ot types of specimens may be necessary to detec t virus. Improper specimen collection and handling, sequence variability under p rimers/probes, or organism present below the limit of detection may lead to fals e negative results. Positive and negative predictive values of testing are highl y dependent on prevalance. False negative test results are more likely when prev alence is high.The expected result is negative (not detected).The SARS-CoV-2 hetal t is intended for the qualitative detection of nucleic acid from SARS-CoV-2 in n asopharyngeal and oropharyngeal swab samples from patients who meet COVID-19 cli nical and or epidemiological criteria. For lower respiratory tract specimens, th e assay is submitted for authoriztion by FDA under an Emergency Use Authorizatio n (EUA). Testing methodology is real time RT-PCR. If received as separate collec tion devices, nasopharygeal and oropharyngeal specimens are combined for analysi s. Additional specimens may be split to a separate accession for analysi and rep orting as this test includes a single unit of service.Test results must be corre lated with clinical presentation and evaluated in the context of other laborator y and epidemiologic data. Test performance can be affected because the epidemiol ogy and clinical spectrum of infection caused by SARS-CoV-2 is not fully known. For example, the optimum types of specimens to collect and when during the cours e of infection these specimens are most likely to contain detectable viral RNA m ay not be known.This test has not been Food and Drug Administration (FDA) cleare d or approved and has been authorized by FDA under an Emergency Use Authorizatio n (EUA). The test is only authorized for the duration of the declaration that ci rcumstances exist justifying the authorization of emergency use of in vitro diag nostic tests for detection and/or diagnosis of SARS-CoV-2 under section 564(b) o f the Act, 21 U.S.C. section 360bbb-3(b)(1), unless the authorization is termina mira or revoked sooner. [facility] are certified under the C linical Laboratory Improvement Amendments of 1988 (CLIA), 42 U.S.C. section 263a , to perform high complexity tests.Testing performed by [facility] [address] [phone] Director: Antoine Salmeron M.D.[facility] # [id number] [facility]GLUBED 2019-12-09 16:51:00* Test Item Value Reference Range Interpretation Comments GLUBED (test code = GLUBED) 135 mg/dL 74-106 H Performed by certified railcar brake operator at [facility] [id number] 16:51:00* Test Item Value Reference Range Interpretation Comments GLUBED (test code = GLUBED) 139 mg/dL 74-106 H Performed by certified railcar brake operator at [facility] [id number] 05:48:00* Test Item Value Reference Range Interpretation Comments GLUBED (test code = GLUBED) 121 mg/dL 74-106 H Performed by certified railcar brake operator at [facility] [id number] 20:11:00* Test Item Value Reference Range Interpretation Comments GLUBED (test code = GLUBED) 148 mg/dL 74-106 H Performed by certified railcar brake operator at [facility] [id number] 16:54:00* Test Item Value Reference Range Interpretation Comments GLUBED (test code = GLUBED) 110 mg/dL 74-106 H Performed by certified railcar brake operator at [facility] [id number] 12:09:00* Test Item Value Reference Range Interpretation Comments GLUBED (test code = GLUBED) 185 mg/dL 74-106 H Performed by certified railcar brake operator at [facility] BASIC METABOLIC [id number] 06:01:00* Test Item Value Reference Range Interpretation Comments SODIUM (test code = NA) 138 mmol/L 136-145 N POTASSIUM (test code = K) 3.8 mmol/L 3.5-5.1 N CHLORIDE (test code = CL) 105.0 mmol/L 98-107 N CARBON DIOXIDE (test code = CO2) 26.0 mmol/L 21-32 N ANION GAP (test code = GAP) 10.8 10-20 N GLUCOSE (test code = GLU) 131 mg/dL 74-106 H BLOOD UREA NITROGEN (test code = BUN) 7 mg/dL 7-18 N GLOMERULAR FILTRATION RATE (test code = GFR) > 60 mL/min >=60 Estimated GFR by using Modified MDRD formula.Chronic kidney disease is defined as either kidney damageor GFR <60 mL/min/1.73 m2 for >3 months. CREATININE (test code = CREAT) 0.40 mg/dL 0.55-1.02 L Note change in reference range due to change in reagent. BUN/CREATININE RATIO (test code = BUN/CREA) 19.6 10-20 N CALCIUM (test code = CA) 9.6 mg/dL 8.5-10.1 N [id number] 06:01:00* Test Item Value Reference Range Interpretation Comments PHOSPHORUS (test code = PHOS) 2.6 mg/dL 2.5-4.9 N [id number] 06:01:00* Test Item Value Reference Range Interpretation Comments MAGNESIUM (test code = MAG) 1.9 mg/dL 1.8-2.4 N [id number] 05:55:00* Test Item Value Reference Range Interpretation Comments GLUBED (test code = GLUBED) 121 mg/dL 74-106 H Performed by certified railcar brake operator at [facility] BASIC METABOLIC [id number] 05:54:00* Test Item Value Reference Range Interpretation Comments SODIUM (test code = NA) 138 mmol/L 136-145 N POTASSIUM (test code = K) 3.8 mmol/L 3.5-5.1 N CHLORIDE (test code = CL) 105.0 mmol/L 98-107 N CARBON DIOXIDE (test code = CO2) mmol/L 21-32 ANION GAP (test code = GAP) 10-20 GLUCOSE (test code = GLU) mg/dL 74-106 BLOOD UREA NITROGEN (test code = BUN) mg/dL 7-18 GLOMERULAR FILTRATION RATE (test code = GFR) mL/min >=60 CREATININE (test code = CREAT) mg/dL 0.55-1.02 BUN/CREATININE RATIO (test code = BUN/CREA) 10-20 CALCIUM (test code = CA) mg/dL 8.5-10.1 [id number] 05:54:00* Test Item Value Reference Range Interpretation Comments PHOSPHORUS (test code = PHOS) mg/dL 2.5-4.9 [id number] 05:54:00* Test Item Value Reference Range Interpretation Comments MAGNESIUM (test code = MAG) mg/dL 1.8-2.4 CBC W/AUTO [id number] 05:31:00* Test Item Value Reference Range Interpretation Comments WHITE BLOOD CELL (test code = WBC) 9.4 K/mm3 4.5-12.5 N RED BLOOD CELL (test code = RBC) 2.66 mill/mm3 3.7-5.2 L HEMOGLOBIN (test code = HGB) 7.8 gram/dL 11.5-15.5 L HEMATOCRIT (test code = HCT) 23.8 % 36.0-46.0 L MEAN CELL VOLUME (test code = MCV) 89.5 fL 80-98 N MEAN CELL HGB (test code = MCH) 29.3 picogram 27.0-33.0 N MEAN CELL HGB CONCETRATION (test code = MCHC) 32.8 gram/dL 33.0-36. 0 L RED CELL DISTRIBUTION WIDTH (test code = RDW) 14.5 % 11.6-16. 2 N RED CELL DISTRIBUTION WIDTH SD (test code = RDW-SD) 47.0 fL 37 .0-51.0 N PLATELET COUNT (test code = PLT) 511 K/mm3 150-450 H MEAN PLATELET VOLUME (test code = MPV) 8.7 fL 6.7-11.0 N NEUTROPHIL % (test code = NT%) 72.6 % 39.0-69.0 H IMMATURE GRANULOCYTE % (test code = IG%) 0.5 % 0.0-5.0 N LYMPHOCYTE % (test code = LY%) 16.0 % 25.0-55.0 L MONOCYTE % (test code = MO%) 8.6 % 0.0-10.0 N EOSINOPHIL % (test code = EO%) 1.8 % 0.0-5.0 N BASOPHIL % (test code = BA%) 0.5 % 0.0-1.0 N NUCLEATED RBC % (test code = NRBC%) 0.0 % 0-0 N NEUTROPHIL # (test code = NT#) 6.84 K/mm3 1.8-7.7 N IMMATURE GRANULOCYTE # (test code = IG#) 0.05 x10 3/uL 0-0.03 H LYMPHOCYTE # (test code = LY#) 1.51 K/mm3 1.0-5.0 N MONOCYTE # (test code = MO#) 0.81 K/mm3 0-0.8 H EOSINOPHIL # (test code = EO#) 0.17 K/mm3 0.0-0.5 N BASOPHIL # (test code = BA#) 0.05 K/mm3 0.0-0.2 N NUCLEATED RBC # (test code = NRBC#) 0.00 K/mm3 0.0-0.1 N MANUAL DIFF REQUIRED (test code = MDIFF) NO [id number] 20:30:00* Test Item Value Reference Range Interpretation Comments GLUBED (test code = GLUBED) 158 mg/dL 74-106 H Performed by certified railcar brake operator at [facility] [id number] 17:03:00* Test Item Value Reference Range Interpretation Comments GLUBED (test code = GLUBED) 111 mg/dL 74-106 H Performed by certified railcar brake operator at [facility] [id number] 12:53:00* Test Item Value Reference Range Interpretation Comments GLUBED (test code = GLUBED) 159 mg/dL 74-106 H Performed by certified railcar brake operator at [facility] [id number] 06:38:00* Test Item Value Reference Range Interpretation Comments GLUBED (test code = GLUBED) 162 mg/dL 74-106 H Performed by certified railcar brake operator at [facility] [id number] 20:49:00* Test Item Value Reference Range Interpretation Comments GLUBED (test code = GLUBED) 244 mg/dL 74-106 H Performed by certified railcar brake operator at [facility] [id number] 16:05:00* Test Item Value Reference Range Interpretation Comments GLUBED (test code = GLUBED) 146 mg/dL 74-106 H Performed by certified railcar brake operator at [facility] - XR FOOT 3 + V [id number] 14:03:00 FAX: Ellie Zeng DPM [phone] Jay: B St: [facility] FAX: Arsenio Terrell MD [phone] Name: [facility]I [facility] : 1945 Age/S: 74/F [address] Unit #: [id number] Loc: V.2055 JO-ANN Claudio [address] Phys: Ellie Mason DPM Acct: [id number] Dis Date: Status: ADM IN PHONE #: [phone] Exam Date: 12/06/2019 1344 FAX #: [phone] Reason: ISCHEMIC LEFT FOOT EXAMS: CPT CODE: [id number] XR FOOT 3 + V LT 19936 EXAM: Left foot, 3 views; INFORMATION: Peripheral vascular disease; chronic limb ischemia; ischemic left foot; FINDINGS: Diffuse osteoporosis. Hammertoes. Otherwise, imaged bones are intact; no evidence of fracture or dislocation. No locali zed osteoporosis or cortical erosion. Arterial calcifications; no radiopaq ue foreign bodies. IMPRESSION: 1. No evidence of osteom yelitis or septic arthritis. 2. No evidence of acute osseous trauma. 3. Osteoporosis. 4. Hammertoes. Location code: [facility] at 1403 Rep orted and signed by: Gustavo Cruz M.D. CC: Ellie Mason DPM; Arsenio Terrell MD Technologist: Vicki GUIDO(R); Teresa Sánchez(R) Trnscrd Date/Time/By: 12/06/2019 (1403) : By: Sue TothGRW Orig Print D/T: S: 12/06/2019 (1986) PAGE 1 Signed Report GLUBED 2019-12-06 11:09:00* Test Item Value Reference Range Interpretation Comments GLUBED (test code = GLUBED) 178 mg/dL 74-106 H Performed by certified railcar brake operator at [facility] [id number] 06:11:00* Test Item Value Reference Range Interpretation Comments GLUBED (test code = GLUBED) 141 mg/dL 74-106 H Performed by certified railcar brake operator at [facility] [id number] 19:45:00* Test Item Value Reference Range Interpretation Comments GLUBED (test code = GLUBED) 192 mg/dL 74-106 H Performed by certified railcar brake operator at [facility] [id number] 17:09:00* Test Item Value Reference Range Interpretation Comments GLUBED (test code = GLUBED) 124 mg/dL 74-106 H Performed by certified railcar brake operator at [facility] [id number] 11:52:00* Test Item Value Reference Range Interpretation Comments GLUBED (test code = GLUBED) 160 mg/dL 74-106 H Performed by certified railcar brake operator at [facility] [id number] 05:06:00* Test Item Value Reference Range Interpretation Comments GLUBED (test code = GLUBED) 161 mg/dL 74-106 H Performed by certified railcar brake operator at [facility] [id number] 20:30:00* Test Item Value Reference Range Interpretation Comments GLUBED (test code = GLUBED) 160 mg/dL 74-106 H Performed by certified railcar brake operator at [facility] [id number] 17:50:00* Test Item Value Reference Range Interpretation Comments GLUBED (test code = GLUBED) 128 mg/dL 74-106 H Performed by certified railcar brake operator at [facility] [id number] 13:14:00* Test Item Value Reference Range Interpretation Comments GLUBED (test code = GLUBED) 123 mg/dL 74-106 H Performed by certified railcar brake operator at [facility] LIPID PROFILE (CORONARY RISK)2019-12-04 11:07:00* Test Item Value Reference Range Interpretation Comments TRIGLYCERIDES (test code = TRIG) 75 mg/dL 20-150 N CHOLESTEROL (test code = CHOL) 85 mg/dL 0-200 N CHOLESTEROL/HDL RATIO (test code = CHOLHDL) 2.0 RATIO 0-4.9 N RISK ASSOCIATED WITH CHOL/HDL RATIOS: Risk Male Female1/2 AVERAGE 3.43 3.27AVERAGE 4.97 4.442X AVERAGE 9.55 7.053X AVERAGE 23.39 11.04 REFERENCE VALUE IS RELATED TO RISK LEVELS ASRECOMMENDED BY THE JUSTO. HEART, LUNG, AND BLOOD INST. HDL CHOLESTEROL (test code = HDL) 42 mg/dL 40-60 N LIPOPROTEIN LDL (test code = LDL) 38 mg/dL 100-129 L Reference Interval: mg/dL mmol/L Optimal <100 <2.6Near/above optimal 100-129 2.6- 3.3Borderline High 130-159 3.4-4.1High 160-189 4.1-4.9Very High >=190 >=4.9========= This LDL result is a direct measurement.========= [id number] 10:44:00* Test Item Value Reference Range Interpretation Comments GLYCOSYLATED HEMOGLOBIN (HA1C) (test code = GLYHGB) 5.4 % HbA1 SUGGESTED DIAGNOSIS: HbA1C (%) Diabetic >6.4Prediabetes 5.7 - 6.4Normal <5.7 ESTIMATED AVERAGE GLUCOSE (test code = EAG) 108 MG/DL [id number] 05:39:00* Test Item Value Reference Range Interpretation Comments GLUBED (test code = GLUBED) 101 mg/dL 74-106 N Performed by certified railcar brake operator at [facility] [id number] 21:05:00* Test Item Value Reference Range Interpretation Comments GLUBED (test code = GLUBED) 122 mg/dL 74-106 H Performed by certified railcar brake operator at [facility] - CTA ABD AORTA IF LWEX [id number] 17:47:00 Name: LANI [facility]LE [facility] : 1945 Age/S: 74 / F [address] [facility] Unit #: [id number] Loc: JO-ANN Claudio [address] Phys: Gina Hdez DO Acct: [id number] Dis Date: Status: ADM IN PHONE #: [phone] Exam Date: 12/03/2019 1549 FAX #: [phone] Reason: occlusion EXAMS: CPT CODE: [id number] [place] [address] EXAM: CT angiography of the abdominal aorta, iliac vessels and both lower extremities; INFORMATION: Decreased circulation, left toes; peripheral arterial disease, vascular occlusions? TECHNIQUE AND FINDINGS: CT dose reduction protocol; Helical scans were obtained through the abdomen, pelvis and the lower extremities during intravenous infusion of contrast material. Multiple curvilinear reconstructions were obtained. 3-D angiographic studies were generated on an independent workstation, using volume rendering and maximum intensity projection algorithms. The abdominal aorta is widely patent it shows mild calcified plaque; no stenosis; no aortic aneurysm. Calcified plaques are seen at the origin of the celiac artery and the SMA. These are associated with mild stenoses. The renal randy mariana are patent. Calcified plaques also seen at the origin; no evidence of significant stenosis. Patent CHRYSTAL. Both iliac arteries are patent and without significant stenosis. Right leg: The right common femoral artery and the profunda femoris artery are patent. E xtensive atherosclerotic changes of the right SFA with calcified plaques, 70% stenosis proximally and 50% stenosis at the level of the adductor kelton l. 50% stenosis of the proximal right popliteal artery. Short, 90% s tenosis of the right tibioperoneal trunk. Diffuse disease of infrapoplitea l vessels with short 90% stenosis of the proximal right anterior tibial ar hcelo. Otherwise, the infrapopliteal vessels are perfused and there is enhancement of a dorsalis pedis and plantar pedis artery. Left l eg: The left common femoral and profunda femoris arteries are brunosn nt. The left SFA shows a 40% stenosis proximally. It shows extensive calcified plaques and there is a 60% stenosis in the region of the adduct or canal. 80% stenosis of the left popliteal artery. There is diffus e disease of infrapopliteal vessels with high-grade PAGE 1 Signed Report (CONTINUED) Name: [facility]I [facility] : 1945 Age/S: 74 / F [address] Unit #: [id number] Loc: JO-ANN Claudio [address] Phys: Gina Hdez DO Acct: [id number] Dis Date: Status: ADM IN PHONE #: [phone] Exam Date: 1545 FAX #: [phone] Reason: occlusion EXAMS: CPT CODE: [id number] [place] [address] <Continued> stenosis of the proximal left anterior tibial artery and a short occlusion. It is then reconstituted but shows additional high-grade stenoses and several additional occlusions. There is a proximal occlusion of the left peroneal artery. There is also showed occlusion of the proximal right posterior tibial artery. The peroneal and posterior tibial arteries reconstituted and is opacification of a dorsalis pedis and plantar pedis artery. There is a 2 x 1.5 cm fluid collection in the left popliteal fossa. Surgical skin saturnino are seen nearby and there is also a small subcutaneous air collection consistent with postsurgical changes. Old, consolidated fracture left pubic bone. IMPRESSION: 1. Patent aorta and patent iliac vessels. 2. Patent visceral arteries with calcified plaques at the origin and mild stenosis of the celiac artery and SMA. 3. Diffuse disease of femoropopliteal vessels bilaterally. 4. Severe disease of infrapopliteal vessels, left greater than right. Disc ontinuous infrapopliteal runoff on the left and extensive atheroscleroti c changes and stenoses of infrapopliteal vessels on the right, as descri bed above. 5. Postsurgical changes in the distal left calf region and th e popliteal fossa. The small fluid collection may represent a po stoperative seroma. The differential diagnosis includes a Clarke's cyst. Location code: [facility] at 1747 Reported and signed by: Gustavo Cruz M.D. CC: Gina Hdez DO Technologist:Diane Mijares RT(R); WILVER Sam CTDI: DLP: Trnscb Date/Time: 12/03/2019 (174) Maurisio Orig Print D/T: S: 12/03/2019 (3655) PAGE 2 Signed Report BASIC METABOLIC [id number] 14:24:00* Test Item Value Reference Range Interpretation Comments SODIUM (test code = NA) 135 mmol/L 136-145 L POTASSIUM (test code = K) 3.7 mmol/L 3.5-5.1 N CHLORIDE (test code = CL) 101.0 mmol/L 98-107 N CARBON DIOXIDE (test code = CO2) 26.0 mmol/L 21-32 N ANION GAP (test code = GAP) 11.7 10-20 N GLUCOSE (test code = GLU) 139 mg/dL 74-106 H BLOOD UREA NITROGEN (test code = BUN) 9 mg/dL 7-18 N GLOMERULAR FILTRATION RATE (test code = GFR) > 60 mL/min >=60 Estimated GFR by using Modified MDRD formula.Chronic kidney disease is defined as either kidney damageor GFR <60 mL/min/1.73 m2 for >3 months. CREATININE (test code = CREAT) 0.50 mg/dL 0.55-1.02 L Note change in reference range due to change in reagent. BUN/CREATININE RATIO (test code = BUN/CREA) 18.0 10-20 N CALCIUM (test code = CA) 9.7 mg/dL 8.5-10.1 N BASIC METABOLIC [id number] 14:16:00* Test Item Value Reference Range Interpretation Comments SODIUM (test code = NA) 135 mmol/L 136-145 L POTASSIUM (test code = K) 3.7 mmol/L 3.5-5.1 N CHLORIDE (test code = CL) 101.0 mmol/L 98-107 N CARBON DIOXIDE (test code = CO2) mmol/L 21-32 ANION GAP (test code = GAP) 10-20 GLUCOSE (test code = GLU) mg/dL 74-106 BLOOD UREA NITROGEN (test code = BUN) mg/dL 7-18 GLOMERULAR FILTRATION RATE (test code = GFR) mL/min >=60 CREATININE (test code = CREAT) mg/dL 0.55-1.02 BUN/CREATININE RATIO (test code = BUN/CREA) 10-20 CALCIUM (test code = CA) mg/dL 8.5-10.1 PROTHROMBIN [id number] 14:02:00* Test Item Value Reference Range Interpretation Comments PROTHROMBIN TIME PATIENT (test code = PTP) 18.7 seconds 9.0-14.0 H INTERNATIONAL NORMAL RATIO (test code = INR) 1.6 0.8-1.2 H The therapeutic range for oral anticoagulant therapy formost indications is an international normalized ratio (INR)of between 2.0 and 3.0. The recommended therapeutic INRrange for various clinical situations is listed below: Clinical Situation INR range Pulmonary e mbolism treatment (2.0-3.0)Venous thrombosis treatmentVenous thrombosis prophylaxis (high risk surgery)Prevention of systemic embolism from: Acute myocardial infarction Valvular heart disease Atrial fibrillation Mechanical prosthetic heart valves (2.5-3.5) IS PATIENT ON ANTICOAGULANTS? NTHROMBOPLASTIN TIME [id number] 14:02:00* Test Item Value Reference Range Interpretation Comments THROMBOPLASTIN TIME PARTIAL (test code = PTT) 39.1 seconds 23.0-37. 0 H IS PATIENT ON ANTICOAGULANTS? NCBC W/O [id number] 13:52:00* Test Item Value Reference Range Interpretation Comments WHITE BLOOD CELL (test code = WBC) 10.2 K/mm3 4.5-12.5 N RED BLOOD CELL (test code = RBC) 2.88 mill/mm3 3.7-5.2 L HEMOGLOBIN (test code = HGB) 8.6 gram/dL 11.5-15.5 L HEMATOCRIT (test code = HCT) 26.2 % 36.0-46.0 L MEAN CELL VOLUME (test code = MCV) 91.0 fL 80-98 N MEAN CELL HGB (test code = MCH) 29.9 picogram 27.0-33.0 N MEAN CELL HGB CONCETRATION (test code = MCHC) 32.8 gram/dL 33.0-36. 0 L RED CELL DISTRIBUTION WIDTH (test code = RDW) 14.4 % 11.6-16. 2 N PLATELET COUNT (test code = PLT) 522 K/mm3 150-450 H MEAN PLATELET VOLUME (test code = MPV) 8.7 fL 6.7-11.0 N POC eeobuei9221-45-77 11:18:50* Test Item Value Reference Range Interpretation Comments POC glucose (test code = 65267-6) 208 mg/dL 65-99 H Marketing Clerk Name: Keaton Yee LDevice ID: [id number]: PENDING SALE TO [facility] Notified electronic field service engineer Interpretation (test code = 17429-9) Abnormal [place] MethodistBasic metabolic eezfl7110-27-48 05:57:31* Test Item Value Reference Range Interpretation Comments Sodium (test code = 2951-2) 134 135- 148 mEq/L L Potassium (test code = 2823-3) 4.0 3.5- 5.0 mEq/L Chloride (test code = 5-0) 99 98- 112 mEq/L CO2 (test code = 2027-9) 22 24- 31 mEq/L L Anion gap (test code = 74765-9) 13@ANIO 7- 15 mEq/L BUN (test code = 3094-0) 14 mg/dL 8-23 Creatinine (test code = 2160-0) 0.51 mg/dL 0.5-0.9 Glucose (test code = 2345-7) 145 mg/dL 65-99 H Calcium (test code = 44854-7) 9.9 mg/dL 8.8-10.2 Lab Interpretation (test code = 88781-0) Abnormal [place] MethodistEstimated [id number] 05:57:31* Test Item Value Reference Range Interpretation Comments Estimated GFR (test code = 5488) >=90 mL/min/1.73 m2 Catergory Units InterpretationG1 >=90 Normal or highG2 60-89 Mildly ngjwvjeblB3r 45-59 Mildly to moderately xunurkjofA9z 30-44 Moderately to severely decreasedG4 15-29 Severely decreasedG5 <15 Kidney failureThe eGFR was calculated using the Chronic Kidney Disease Epidemiology Collaboration (CKD-EPI) equation. Interpretation is based on recommendations of the National Kidney Foundation-Kidney Disease Outcomes Quality Initiative (NKF-KDOQI) published in 2014. [place] MethodistCBC with platelet and lrolkyvqtwtb2732-67-92 05:40:49* Test Item Value Reference Range Interpretation Comments WBC (test code = 39412-7) 5.65 4.50- 11.00 k/uL RBC (test code = 87845-0) 2.50 m/uL 4.2-5.5 L HGB (test code = 718-7) 7.5 g/dL 12-16 L HCT (test code = 4544-3) 23.4 % 37-47 L MCV (test code = 787-2) 93.6 fL 82-100 MCH (test code = 785-6) 30.0 pg 27-34 MCHC (test code = 786-4) 32.1 g/dL 31-37 RDW - SD (test code = 94669-3) 46.9 fL 37-55 MPV (test code = 52781-2) 8.9 fL 8.8-13.2 Platelet count (test code = 62194-3) 380 150- 400 k/uL Nucleated RBC (test code = 74581-4) 0.00 /100 WBC Neutrophils (test code = 23845-0) 59.9 % 39-69 Lymphocytes (test code = 28835-6) 25.3 % 25-45 Monocytes (test code = 89677-1) 10.4 % 0-10 H Eosinophils (test code = 26352-9) 3.7 % 0-5 Basophils (test code = 88978-0) 0.5 % 0-1 Immature granulocytes (test code = 96248-2) 0.2 % 0-1 "Immature granulocytes" (promyelocytes, myelocytes, metamyelocytes) Lab Interpretation (test code = 54463-4) Abnormal [place] MethodistMagnesium eilgl3167-61-83 05:17:22* Test Item Value Reference Range Interpretation Comments Magnesium (test code = 96593-9) 1.7 mg/dL 1.6-2.4 [place] MethodistPhosphorus wljwl9041-52-99 05:17:19* Test Item Value Reference Range Interpretation Comments Phosphorus (test code = 2777-1) 2.3 mg/dL 2.4-4.5 L Lab Interpretation (test code = 52601-8) Abnormal [place] MethodistIonized mwppuzt9177-82-07 05:07:50* Test Item Value Reference Range Interpretation Comments pH (test code = 2753-2) 7.54 Ionized calcium (test code = 1994-0) 1.14 mmol/L 1.11-1.32 [place] MethodistPartial thromboplastin time, wimgiotuc6688-58-60 04:56:44* Test Item Value Reference Range Interpretation Comments PTT (test code = 01915-8) 44.0 23.0- 36.0 sec H PTT therapeutic range for unfractionated heparin is61.0-112.0 seconds which corresponds to Anti-Xa0.3-0.7 U/ml. Lab Interpretation (test code = 16441-1) Abnormal [facility] MethodistECG 12 anta0304-36-59 18:04:59* Test Item Value Reference Range Interpretation Comments Ventricular rate (test code = 253) 82 Atrial rate (test code = 255) 82 VT interval (test code = 266) 172 QRSD interval (test code = 260) 84 QT interval (test code = 264) 380 QTC interval (test code = 265) 443 P axis 1 (test code = 267) 67 QRS axis 1 (test code = 268) 58 T wave axis (test code = 270) 65 EKG impression (test code = 273) Normal sinus rhythm-A nterior infarct , age undetermined-Abnormal ECG-In automated comparison with ECG of 18-NOV-2019 14:25,-Anterior infarct is now present-Nonspecific T wave abnormality now evident in Anterior leads- [facility] MethodistXR Chest 1 Vw Dfwybvkl6944-31-44 06:18:04Hm Interface, Radiology Results 11/19/2019 6:21 AM CDTEXAMINATION: XR CHEST 1 VW PORTABLECLINICAL HISTORY: ICU pt stable with no clinical status changesIMPRESSION:Follow-up exam demonstrates no interval change, and no new inf iltrate.[facility]-[id number] MethodistProthrombin time with MKW4315-01-37 01:11:04* Test Item Value Reference Range Interpretation Comments Prothrombin time (test code = 5902-2) 15.1 11.5- 14.5 sec H INR (test code = 06157-7) 1.2 Th e International Normalized Ratio (INR) is a therapeutic monitoring tool for patients who are stable on oral anticoagulant therapy. An INR of 2.0-3.0 is suggested for deep vein thrombosis/pulmonary embolism. Lab Interpretation (test code = 29646-9) Abnormal [place] MethodistAnti Xa, thhwedhqfdnroa0722-23-54 15:15:40* Test Item Value Reference Range Interpretation Comments Anti Xa, unfractionated (test code = 3274-8) <0.10 0.3-0.7 L Therapeutic Range: 0.30 - 0.70 U/mL Lab Interpretation (test code = 48295-0) Abnormal [place] DwjrqmhudZfirmhbhpo0896-33-87 14:50:50* Test Item Value Reference Range Interpretation Comments Fibrinogen (test code = 77204-2) 362 mg/dL 200-450 [facility] bljsgtkf3686-29-91 14:31:28* Test Item Value Reference Range Interpretation Comments WBC (test code = 81378-1) 4.23 4.50- 11.00 k/uL L RBC (test code = 75584-6) 2.95 m/uL 4.2-5.5 L HGB (test code = 718-7) 9.0 g/dL 12-16 L HCT (test code = 4544-3) 26.2 % 37-47 L MCV (test code = 787-2) 88.8 fL 82-100 MCH (test code = 785-6) 30.5 pg 27-34 MCHC (test code = 786-4) 34.4 g/dL 31-37 RDW - SD (test code = 07974-6) 43.9 fL 37-55 MPV (test code = 14484-7) 8.6 fL 8.8-13.2 L Platelet count (test code = 55297-8) 288 150- 400 k/uL Nucleated RBC (test code = 34937-8) 0.00 /100 WBC Lab Interpretation (test code = 95369-3) Abnormal [place] MethodistArterial blood rjn6143-35-38 14:30:24* Test Item Value Reference Range Interpretation Comments pH, arterial (test code = 2744-1) 7.48 7.35-7.45 H pCO2, arterial (test code = 2019-8) 28 35- 45 mmHg L pO2, arterial (test code = 2703-7) 191 80- 90 mmHg H Bicarbonate, arterial (test code = 1960-4) 20.7 mmol/L 21-28 L Base excess, arterial (test code = 1925-7) -2 -2 - 2 mEq- L O2 saturation, arterial (test code = 2708-6) 100 % 95-100 Lab Interpretation (test code = 85547-2) Abnormal [place] MethodistIonized calcium, nzmzodim0891-55-05 14:30:24* Test Item Value Reference Range Interpretation Comments Ionized calcium, arterial (test code = 96968-3) 1.09 mmol/L 1.11-1 .32 L Lab Interpretation (test code = 42942-2) Abnormal [place] MethodistPrepare GWU0313-66-96 14:05:00* Test Item Value Reference Range Interpretation Comments Product name (test code = 25) Red Blood Cells -1, Leukored Unit number (test code = 0507244) [id number] Product code (test code = 3092) [id number] Dispense status (test code = 24) Returned to not transfused Blood expiration date (test code = 302) [id number] Blood type code (test code = 308) 6200 Blood type (test code = 1314) A POSITIVE Compatibility (test code = 6400) Compatible [place] MethodistActivated clotting gwar1570-79-04 13:37:14* Test Item Value Reference Range Interpretation Comments Activated clotting time (test code = 5298) 113 96- 152 sec Marketing Clerk Name: Ignacio Mckenzie ID: [id number] [place] MethodistArterial blood gas, yhgcyenxq0710-12-95 11:09:24* Test Item Value Reference Range Interpretation Comments pH, arterial (test code = 2744-1) 7.51 7.35-7.45 H pCO2, arterial (test code = 2019-) 29 35- 45 mmHg L pO2, arterial (test code = 2703-7) 343 80- 90 mmHg H Temperature, Celsius (test code = 8310-5) 37.0 Degrees C O2 saturation, arterial (test code = 2708-6) 100 % 95-100 pH, arterial corrected (test code = 56476-9) 7.51 pCO2, arterial corrected (test code = 12122-5) 29 mmHg pO2, arterial corrected (test code = 16235-9) 343 mmHg Base excess, arterial (test code = 1925-7) 1 -2 - 2 mEq- L Lab Interpretation (test code = 92385-9) Abnormal [place] MethodistGlucose level, oogwhap8693-97-48 11:09:24* Test Item Value Reference Range Interpretation Comments Glucose, syringe (test code = 2345-7) 161 mg/dL 65-99 H Lab Interpretation (test code = 00472-0) Abnormal [facility] MethodistHemoglobin, yyojzjm4997-24-85 11:09:24* Test Item Value Reference Range Interpretation Comments Hemoglobin, syringe (test code = 718-7) 9.4 g/dL 12-16 L Lab Interpretation (test code = 83209-5) Abnormal [facility] MethodistPotassium, qdkngiw3225-58-63 11:09:24* Test Item Value Reference Range Interpretation Comments Potassium, syringe (test code = 2007) 3.8 3.5- 5.0 mEq/L [facility] MethodistSodium level, vrcwfgd7480-55-25 11:09:24* Test Item Value Reference Range Interpretation Comments Sodium, syringe (test code = 2947-0) 138 135- 148 mEq/L [facility] MethodistArterial oslr5789-91-98 08:48:33FontRolan gibson CRNA 11/18/2019 8:48 AMArterial linePerformed by: Rolan Sheriff CRNAAuthorized by: Rei Valadez MD Patient Location: [facility] Time: 11/18/2019 8:33 AMStaff: Anesthesiologist: Rei Valadez MD Resident/HULL DRAFTER/AA: Rolan Sheriff CRNA Performed by: Resident/ HULL DRAFTER/AAPre-procedure: patient identified, IV checked, site and side verified, ri sks and benefits discussed, procedure verified, surgical consent complete, patie nt position confirmed, monitors and equipment checked and pre-op evaluation comp lete MSBT: antiseptic used, all elements of maximal sterile barrier technique f ollowed, hand hygiene performed, cap/gown used by other personnel and solutions labeled Indications: Indications: multiple ABGs and hemodynamic monitoring A nesthesia: Anesthesia: GeneralProcedure Details: Arterial Line placement: Placed post induction Line placement site: RadialLine placement side: Right Arterial line gauge: 20 GNumber of attempts: 1Ultrasound guidance used: No Po st-procedure: Post-procedure: Sterile dressing applied Post procedure circul ation, sensation, movement: Unchanged Patient tolerance: Patient tolerated th e procedure well with no immediate complicationsN[place] MethodistAirpark[facility] 2019-11-18 08:48:02FoRolan caldera CRNA 11/18/2019 8:48 AMAirwayDate/Time: 11/18/2019 8:24 AMPerformed by: Rolan Sheriff CRNAAuthorized by: Rei Valadez MD Location: ORUrgency: ElectiveDifficult Airway: No Anesthesiologist: Rei Valadez MDResimarciat/HULL DRAFTER/AA: Rolan Sheriff CRNAPerformed by: resident/HULL DRAFTER/AAPreoxygenated with 100% O2: Yes C-spine Precautions Maintained Throughout: Yes Mask Ventilation: Not attemptedFinal Airway Type: Endotr acheal airwayFinal Endotracheal Airway: ETTCuffed: Yes Technique Used: Direct laryngoscopyDevices/Methods Used in Placement: Intubating styletInsertion Site: OralBlade Type: MillerLaryngoscope Blade/Videolaryngoscope Blade Size: 2ETT Size (mm): 7.0Cuff at minimum occlusion pressure: Yes Measured from: LipsETT to Lips (cm): 20Placement Verified by: CO2 detection and direct visualization Laryngoscopic view: Grade I - full view of glottisRapid Sequence Induction (RS I): Yes Modified RSI: No Number of Attempts at Approach: 1 Atraumatic; lips, teeth & gums unchanged from preop.Prateek Moran Pre/Post Rg0063-48-08 21:21:42* Test Item Value Reference Range Interpretation Comments Ventricular rate (test code = 253) 85 Atrial rate (test code = 255) 85 VT interval (test code = 266) 154 QRSD interval (test code = 260) 78 QT interval (test code = 264) 370 QTC interval (test code = 265) 440 P axis 1 (test code = 267) 69 QRS axis 1 (test code = 268) 48 T wave axis (test code = 270) 66 EKG impression (test code = 273) Normal sinus rhythm-N ormal ECG-No previous ECGs available- Prateek PatriciaVID-19 qualitative JGL0839-01-87 08:27:12* Test Item Value Reference Range Interpretation Comments Interpretation (test code = 5031689) Negative results do not preclude 2019-nCoV infection and should not be used as the sole basis for treatment or other patient management decisions. Negative results must be combined with clinical observations, patient history, and epidemiological information. COVID-19 qualitative PCR result (test code = 83254-8) Not-Detect ed Not-Detected COVID-19 qualitative PCR (test code = 7070) See link below for P DF Lab Report [facility] MethodistType and tijrzf2679-23-62 20:27:00* Test Item Value Reference Range Interpretation Comments ABO grouping (test code = 883-9) A Rh type (test code = 02347-0) POS Antibody screen (gel) (test code = 890-4) NEG [place] MethodistHemoglobin N2m3663-66-20 19:39:10* Test Item Value Reference Range Interpretation Comments Hemoglobin A1C (test code = 70500-8) 6.6 % 4-5.6 H HbA1c cutoffs for diagnosing diabetes:4.0% - 5.6% = normal5.7% - 6.4% = increased risk for diabetes (prediabetes)9>=6.5% = clfilhqp4Fswnb for glycemic control (ADA 2016)< 7.0% Target for non adults with diabetes. More or less stringent targets may be appropriate for individual patients. <7.5% Target for Children and adolescents with type 1 diabetes. Lab Interpretation (test code = 44637-0) Abnormal [place] MethodistXR Chest 2 Vs7544-15-89 18:58:35Hm Interface, Radiology Results - 11/13/2019 7:01 PM CDTEXAMINATION: XR CHEST 2 VWCLINICAL HISTORY: Z01.818 Encounter for other preprocedural examination, pre-op testingCOMPARISON: None.FINDINGS:Two views of the chest demonstrate normal cardiomediastinal silhouette. Pulmonary vasculature is within normal limits.No consolidation or pleural effusion is seen. There is no evidence of pneumothorax.Regional osseous structures is unremarkable.IMPRESSION:No radiographic evidence of acute cardiopulmonary process or active disease of the chest.[id number] MethodistCT ABDOMEN/PELVIS B9619-59-23 16:37:00 [facility] [address] [address] Patient Name: LANI LITTLE MR #: [id number] : 1945 Age/Sex: 73/F [facility] [id number] Req #: [id number] Adm Physician: Ordered by: SHANTHI GRAY MD Report #: [id number] Location: ER Room/Bed: Procedure: [id number] CT /CT ABDOMEN/PELVIS W Exam Date: 08/15/18 Exam Time: 1520 REPORT STATUS: Signed EXAMI NATION: CT of the chest, abdomen and pelvis with contrast. TECHNIQUE: [facility] CT images of the chest, abdomen and pelvis were performed from the lung a pices to the lesser trochanters after the intravenous administration of 150 cc of Isovue 300 and the oral administration of none. Coronal and sagittal refor matted images were obtained. Dose modulation, iterative reconstruction, and/or weight based adjustment of the mA/kV was utilized to reduce the radiation dose to as low as reasonably achievable. COMPARISON: None. CLINICAL HIS TORY:Trauma, fall DISCUSSION: CHEST: LINES/TUBES: None. LUNGS AND AIRWAYS: Lung base atelectasis. PLEURA: The pleural spaces are clear. HEART AND MEDIASTINUM: The thyroid gland is normal. The heart an d pericardium are within normal limits. LYMPH NODES: No significant media stinal, hilar or axillary lymphadenopathy is seen. BONES AND SOFT TISSUE S: No bony destructive lesions. No soft tissue abnormalities. ABDOME N/PELVIS: HEPATOBILIARY:No focal hepatic lesions. No biliary ductal dilati on. The gallbladder is normal. SPLEEN: No splenomegaly. PANCREAS: N o focal masses or ductal dilatation. ADRENALS: No adrenal nodules. KID NEYS/URETERS: 4 mm calculus in the right kidney. No obstruction. PELVIC ORG ANS/BLADDER: The bladder is normal. PERITONEUM/RETROPERITONEUM: No free a ir or fluid. LYMPH NODES: No intra-abdominal,retroperitoneal, pelvic or ing uinal lymphadenopathy. VESSELS: The celiac trunk,superior and inferior me senteric and bilateral renal arteries are patent The portal, superior mesent geraldo and splenic veins are patent. GI TRACT: No distention or wall thicke tammie. BONES AND SOFT TISSUES: Remote inferior endplate compression deformit y of L1 degenerative anterolisthesis of L5 on S1. Lower lumbar facet arthrosis . Remote healed fracture of the left inferior and superior pubic ramus. I MPRESSION: No acute CT finding. Signed by: Beckie Liang n 08/15/2018 4:38 PM Dictated By: AMEENA AGUIRRE MD Electronically Nely d By: AMEENA AGUIRRE MD on 08/15/181637 Transcribed By: JILLIAN on 08/15/181637 COPY TO: SHANTHI GRAY MD CT MAXIO FAC/LUKE [id number] 16:28:[address] [address] Patient Name: LANI LITTLE MR #: [id number] : 1945 Age/Sex: 73/F Req #: [id number] Adm Physician: Ordered by: SHANTHI GRAY MD Report #: [id number] Location: ER Room/Bed: Procedure: [id number] CT /CT MAXIO FAC/PARANAS WO Exam Date: 08/15/18 Exam Ti me: 1520 REPORT STATUS: Signed E xamination: CT Face without Contrast History:Fall with facial injury Compari son studies: None Technique: Axial images were obtained through the maxil lofacial region. Coronal and sagittal reconstructions obtained from the axial data. Dose modulation, iterative reconstruction, and/or weight based adjustme nt of the mA/kV was utilized to reduce the radiation dose to as low as reasona lobo achievable. Intravenous contrast: None Findings: Soft tissues : No abnormalities. Bones: No fractures or bony abnormalities. O rbits: Globes: Intact with bilateral slitlike with the lenses. Extra or int raconal abnormalities: None. Paranasal sinuses: Clear. Nasal cavity: Patent. No septal deviation. IMPRESSION: No fracture. Sig ulises by: Dr. Donna Robledo M.D. on 08/15/2018 4:30 PM Dictated By: RICHARDSON ADAMS MD 1630 Transcribed By: JILLIAN on 08/15/18 1630 COPY TO: SHANTHI GRAY MD CT BRAIN [id number] 16:23:00 [address] [address] Patient Name: LANI LITTLE MR #: [id number] : 1945 Age/Sex: 73/F Req #: [id number] Adm Physician: Ordered by: SHANTHI GRAY MD Report #: [id number] Location: ER Room/Bed: Procedure: [id number] CT /CT BRAIN WO Exam Date: 08/15/18 Exam Time: 1520 REPORT STATUS: Signed Examination: CT head without contrast Clinical Indication: Fall with head injury. Techniq ue: Transaxial noncontrast images from the skull base through the vertex were obtained. Sagittal and coronal reformatted images were done. Dose modulation, iterative reconstruction, and/or weight based adjustment of the mA/kV was util ized to reduce the radiation dose to as low as reasonably achievable. Austyn rison: Head CT performed January 13, 2014. Findings: Scalp: No abnormaliti es. Bones: Intact. No fractures. No blastic or lytic lesions. Brain sul ci: Appropriate for patient's age. Ventricles: Normal in size and configuratio n. No hydrocephalus. Extra-axial space: No new acute hemorrhage. In terval resolution of previous left superior frontal sulcus subarachnoid hemorr radha. Parenchyma: No masses, hemorrhage, or acute or chronic cortical ba sed vascular insults. Suprasellar region: No abnormalities. Craniocervica l junction: The foramen magnum is patent. No Chiari one malformation. In cidental findings: Atherosclerotic calcification of the cavernous and supracl inoid internal carotid arteries. Impression: 1. No new acute intrac ranial hemorrhage. 2. Interval resolution of previous left superior frontal s ulcus subarachnoid hemorrhage when compared to prior head CT performed January 13, 2014. Signed by: Dr. Donna Robledo M.D. on 08/15/2018 4:27 PM Dic tated By: DONNA ADAMS MD 26 Transcribed By: JILLIAN on 08/15/181626 CO PY TO: SHANTHI GRAY MD CT CHEST [id number] 16:04:00 [place] [address] Patient Name: LANI LITTLE MR #: [id number] : 1945 Age/Sex: 73/F Req #: [id number] Adm Physician: Ordered by: SHANTHI GRAY MD Report #: [id number] Location: ER Room/Bed: Procedure: [id number] CT /CT CHEST W Exam Date: 08/15/18 Exam Time: 1520 REPORT STATUS: Signed EXAMINATION: CT of the chest, abdomen and pelvis with contrast. TECHNIQUE: Helical CT i mages of the chest, abdomen and pelvis were performed from the lung apices to the lesser trochanters after the intravenous administration of 150 cc of Isovu e 300 and the oral administration of none. Coronal and sagittal reformatted im ages were obtained. Dose modulation, iterative reconstruction, and/or weight b ased adjustment of the mA/kV was utilized to reduce the radiation dose to as l ow as reasonably achievable. COMPARISON: None. CLINICAL HISTORY:Trau ma, fall DISCUSSION: CHEST: LINES/TUBES: None. LUNGS AND AIRWAYS: Lung base atelectasis. PLEURA: The pleural spaces are clear. HEART AND MEDIASTINUM: The thyroid gland is normal. The heart and pericar dium are within normal limits. LYMPH NODES: No significant mediastinal, h ilar or axillary lymphadenopathy is seen. BONES AND SOFT TISSUES: No bon y destructive lesions. No soft tissue abnormalities. ABDOMEN/PELVIS: HEPATOBILIARY:No focal hepatic lesions. No biliary ductal dilation. The gallbladder is normal. SPLEEN: No splenomegaly. PANCREAS: No focal m asses or ductal dilatation. ADRENALS: No adrenal nodules. KIDNEYS/URET ERS: 4 mm calculus in the right kidney. No obstruction. PELVIC ORGANS/BLADD ER: The bladder is normal. PERITONEUM/RETROPERITONEUM: No free air or flu id. LYMPH NODES: No intra-abdominal,retroperitoneal, pelvic or inguinal l ymphadenopathy. VESSELS: The celiac trunk,superior and inferior mesenteric [...] 4:15 PM Dictated By: AMEENA AGUIRRE MD 1615 Transcribed By: JILLIAN on 08/15/18 9085 COPY TO: SHANTHI GRAY MD Urine [id number] 14:39:00* Test Item Value Reference Range Interpretation Comments Urine WBC (test code = 5821-4) 0-5 0-5 [facility] [id number] 14:39:00* Test Item Value Reference Range Interpretation Comments Urine RBC (test code = 11579-8) NONE 0-5 [facility] Tozsifpk5870-43-00 14:39:00* Test Item Value Reference Range Interpretation Comments Urine Bacteria (test code = 83864-3) FEW NONE [facility] Epithelial Mqffe5541-70-03 14:39:00 * Test Item Value Reference Range Interpretation Comments Urine Epithelial Cells (test code = 84119-5) FEW NONE [facility] HospitalU[facility] Hyaline Yndyu4965-04-88 14:39:00* Test Item Value Reference Range Interpretation Comments Urine Hyaline Casts (test code = 16789-3) 0-1 0-1 [facility] Wvsbp4461-49-10 14:39:00* Test Item Value Reference Range Interpretation Comments Sodium Level (test code = 2951-2) 136 136-145 [facility] HospitalPotassium Fyjlj2877-35-88 14:39:00* Test Item Value Reference Range Interpretation Comments Potassium Level (test code = 2823-3) 3.8 3.5-5.1 [facility] HospitalChloride Ygsnu2584-80-31 14:39:00* Test Item Value Reference Range Interpretation Comments Chloride Level (test code = 2075-0) 102 98-107 [facility] HospitalCarbon Dioxide Btouk5613-19-81 14:39:00* Test Item Value Reference Range Interpretation Comments Carbon Dioxide Level (test code = 2028-9) 25 22-29 [facility] HospitalAnion Eui3978-49-10 14:39:00* Test Item Value Reference Range Interpretation Comments Anion Gap (test code = 72918-8) 12.8 8-16 [facility] HospitalBlood Urea Aolnpbcu5724-15-09 14:39:00* Test Item Value Reference Range Interpretation Comments Blood Urea Nitrogen (test code = 3094-0) 15 7-26 [facility] HospitalCreatinine2019-02-01 14:39:00* Test Item Value Reference Range Interpretation Comments Creatinine (test code = 2160-0) 0.77 0.57-1.11 [facility] HospitalBUN/Creatinine Fawvp8511-13-39 14:39:00* Test Item Value Reference Range Interpretation Comments BUN/Creatinine Ratio (test code = 3097-3) 19 6-25 [facility] HospitalEstimat Glomerular Filtration Rate 2018-08-15 14:39:00* Test Item Value Reference Range Interpretation Comments Estimat Glomerular Filtration Rate (test code = 927491531) > 60 >60 Ranges were taken from the National Kidney Disease Education Program and the [facility] literature.Reference ranges:60 or greater: Fkwxxg89-98 ( for 3 consecutive months): Chronic kidney disease 15 or less: Kidney failureCHI [facility] – TempleGlucose Zrikr4701-50-36 14:39:00* Test Item Value Reference Range Interpretation Comments Glucose Level (test code = CQC7417) 218 74-118 H [facility] HospitalCalcium Hckif2245-65-17 14:39:00* Test Item Value Reference Range Interpretation Comments Calcium Level (test code = 87006-4) 9.8 8.4-10.2 [facility] HospitalMagnesium Caaal7906-97-29 14:39:00* Test Item Value Reference Range Interpretation Comments Magnesium Level (test code = 87836-7) 1.8 1.3-2.1 [facility] HospitalTotal Pkitntfvb2199-71-07 14:39:00* Test Item Value Reference Range Interpretation Comments Total Bilirubin (test code = 1975-2) 0.6 0.2-1.2 [facility] HospitalAspartate Amino Transf (AST/SGOT) 2018-08-15 14:39:00* Test Item Value Reference Range Interpretation Comments Aspartate Amino Transf (AST/SGOT) (test code = Aspartate Amino Transf (AST/SGOT)) 85 5-34 H [facility] HospitalAlanine Aminotransferase (ALT/SGPT) 2018-08-15 14:39:00* Test Item Value Reference Range Interpretation Comments Alanine Aminotransferase (ALT/SGPT) (test code = 1742-6) 69 0-55 H [facility] HospitalTotal Jeiincw5348-51-01 14:39:00* Test Item Value Reference Range Interpretation Comments Total Protein (test code = 2885-2) 7.0 6.5-8.1 [facility] HospitalAlbumin2019-02-01 14:39:00* Test Item Value Reference Range Interpretation Comments Albumin (test code = 1751-7) 3.7 3.5-5.0 [facility] HospitalGlobulin2019-02-01 14:39:00* Test Item Value Reference Range Interpretation Comments Globulin (test code = 08262-4) 3.3 2.3-3.5 [facility] HospitalAlbumin/Globulin Xfust3499-20-74 14:39:00 * Test Item Value Reference Range Interpretation Comments Albumin/Globulin Ratio (test code = 1759-0) 1.1 0.8-2.0 [facility] HospitalAlkaline Kgskfppguae1868-73-31 14:39:00* Test Item Value Reference Range Interpretation Comments Alkaline Phosphatase (test code = 6768-6) 49 40-150 [facility] HospitalAmylase Zthhu5306-83-53 14:39:00* Test Item Value Reference Range Interpretation Comments Amylase Level (test code = 1798-8) 90 25-125 [facility] HospitalLipase2019-02-01 14:39:00* Test Item Value Reference Range Interpretation Comments Lipase (test code = 3040-3) 56 8-78 [facility] HospitalUrine Vkggg9230-32-52 14:26:00* Test Item Value Reference Range Interpretation Comments Urine Color (test code = 5778-6) YELLOW YELLOW [facility] HospitalUrine Wjwysqj0217-69-63 14:26:00* Test Item Value Reference Range Interpretation Comments Urine Clarity (test code = 44810-2) SL CLOUDY CLEAR [facility] HospitalUrine Specific Hzjwlbf5718-28-20 14:26:00 * Test Item Value Reference Range Interpretation Comments Urine Specific [place] (test code = 5811-5) 1.020 1.010-1.02 5 [facility] HospitalUrine [id number] 14:26:00* Test Item Value Reference Range Interpretation Comments Urine pH (test code = 46761-1) 6 5-7 [facility] HospitalUrine Leukocyte Lalwvppf5272-02-14 14:26:00* Test Item Value Reference Range Interpretation Comments Urine Leukocyte Esterase (test code = 5799-2) TRACE NEGATIVE H [facility] HospitalUrine Pzhonlp9619-59-33 14:26:00* Test Item Value Reference Range Interpretation Comments Urine Nitrite (test code = 36797-9) NEGATIVE NEGATIVE [facility] Xsozhdn2175-04-62 14:26:00* Test Item Value Reference Range Interpretation Comments Urine Protein (test code = 5804-0) 1+ NEGATIVE H [facility] HospitalUrine Glucose (UA)2018-08-15 14:26:00* Test Item Value Reference Range Interpretation Comments Urine Glucose (UA) (test code = 2349-9) 2+ NEGATIVE H [facility] HospitalUrine Znfqfjm8239-03-59 14:26:00* Test Item Value Reference Range Interpretation Comments Urine Ketones (test code = 06491-1) NEGATIVE NEGATIVE [facility] Sglfoqwjlehw9633-87-20 14:26:00* Test Item Value Reference Range Interpretation Comments Urine Urobilinogen (test code = 80755-2) 0.2 0.2-1 [facility] HospitalUrine Aabfsagvx2486-76-16 14:26:00* Test Item Value Reference Range Interpretation Comments Urine Bilirubin (test code = 1978-6) NEGATIVE NEGATIVE [facility] HospitalUrine Xausb3635-01-55 14:26:00* Test Item Value Reference Range Interpretation Comments Urine Blood (test code = 60602-1) NEGATIVE NEGATIVE [facility] HospitalProthrombin Myqs9244-50-81 14:25:00* Test Item Value Reference Range Interpretation Comments Prothrombin Time (test code = 5902-2) 13.0 11.9-14.5 [facility] HospitalProthromb Time International Ratio 2018-08-15 14:25:00* Test Item Value Reference Range Interpretation Comments Prothromb Time International Ratio (test code = 6301-6) 0.90 Oral Anticoagulant Therapy INR Values:1. Low Intensity Therapy 1.5 - 2.02 . Moderate Intensity Therapy 2.0 - 3.03. High Intensity Therapy(1) 2.5 - 3. 54. High Intensity Therapy(2) 3.0 - 4.05. Panic Value INR > 5.0 [facility] HospitalActivated Partial Thromboplast Time 2018-08-15 14:25:00* Test Item Value Reference Range Interpretation Comments Activated Partial Thromboplast Time (test code = 76011-6) 24.6 23.8-35.5 [facility] HospitalWhite Blood Mxlxg6203-71-85 14:23:00* Test Item Value Reference Range Interpretation Comments White Blood Count (test code = 6690-2) 9.89 4.8-10.8 [facility] HospitalRed Blood Vykyd7980-42-01 14:23:00* Test Item Value Reference Range Interpretation Comments Red Blood Count (test code = 789-8) 3.88 3.6-5.1 [facility] HospitalHemoglobin2019-02-01 14:23:00* Test Item Value Reference Range Interpretation Comments Hemoglobin (test code = 79905-3) 12.1 12.0-16.0 [facility] HospitalHematocrit2019-02-01 14:23:00* Test Item Value Reference Range Interpretation Comments Hematocrit (test code = 4544-3) 35.0 34.2-44.1 [facility] HospitalMean Corpuscular Sjzvqf4061-69-41 14:23:00* Test Item Value Reference Range Interpretation Comments Mean Corpuscular Volume (test code = 787-2) 90.2 81-99 [facility] HospitalMean Corpuscular Ugaomgtvtk4303-51-31 14:23:00* Test Item Value Reference Range Interpretation Comments Mean Corpuscular Hemoglobin (test code = 785-6) 31.2 28-32 [facility] HospitalMean Corpuscular Hemoglobin Concent 2018-08-15 14:23:00* Test Item Value Reference Range Interpretation Comments Mean Corpuscular Hemoglobin Concent (test code = 786-4) 34.6 31-35 [facility] HospitalRed Cell Distribution Wtnpu6899-10-29 14:23:00* Test Item Value Reference Range Interpretation Comments Red Cell Distribution Width (test code = 64886-5) 13.2 11.7 -14.4 [facility] HospitalPlatelet Kxdqo6825-36-87 14:23:00* Test Item Value Reference Range Interpretation Comments Platelet Count (test code = 777-3) 351 140-360 [facility] HospitalNeutrophils (%) (Auto)2018-08-15 14:23:00 * Test Item Value Reference Range Interpretation Comments Neutrophils (%) (Auto) (test code = 09373-2) 79.4 38.7-80.0 [facility] HospitalLymphocytes (%) (Auto)2018-08-15 14:23:00 * Test Item Value Reference Range Interpretation Comments Lymphocytes (%) (Auto) (test code = 736-9) 10.6 18.0-39.1 L [facility] HospitalMonocytes (%) (Auto)2018-08-15 14:23:00* Test Item Value Reference Range Interpretation Comments Monocytes (%) (Auto) (test code = 5905-5) 7.5 4.4-11.3 [facility] HospitalEosinophils (%) (Auto)2018-08-15 14:23:00 * Test Item Value Reference Range Interpretation Comments Eosinophils (%) (Auto) (test code = 713-8) 0.9 0.0-6.0 [facility] HospitalBasophils (%) (Auto)2018-08-15 14:23:00* Test Item Value Reference Range Interpretation Comments Basophils (%) (Auto) (test code = 706-2) 0.4 0.0-1.0 [facility] HospitalIM GRANULOCYTES %2018-08-15 14:23:00* Test Item Value Reference Range Interpretation Comments IM GRANULOCYTES % (test code = IM GRANULOCYTES %) 1.2 0.0- 1.0 H [facility] HospitalNeutrophils # (Auto)2018-08-15 14:23:00* Test Item Value Reference Range Interpretation Comments Neutrophils # (Auto) (test code = 751-8) 7.9 2.1-6.9 H [facility] HospitalLymphocytes # (Auto)2018-08-15 14:23:00* Test Item Value Reference Range Interpretation Comments Lymphocytes # (Auto) (test code = 57296-3) 1.1 1.0-3.2 [facility] HospitalMonocytes # (Auto)2018-08-15 14:23:00* Test Item Value Reference Range Interpretation Comments Monocytes # (Auto) (test code = 742-7) 0.7 0.2-0.8 [facility] HospitalEosinophils # (Auto)2018-08-15 14:23:00* Test Item Value Reference Range Interpretation Comments Eosinophils # (Auto) (test code = 711-2) 0.1 0.0-0.4 [facility] HospitalBasophils # (Auto)2018-08-15 14:23:00* Test Item Value Reference Range Interpretation Comments Basophils # (Auto) (test code = 704-7) 0.0 0.0-0.1 [facility] HospitalAbsolute Immature Granulocyte (auto 2018-08-15 14:23:00* Test Item Value Reference Range Interpretation Comments Absolute Immature Granulocyte (auto (hetal t code = Absolute Immature Granulocyte (auto) 0.12 0-0.1 H [facility]
== END 2020-02-01 17:41 | DRG 239 ==
LOC: MED/SURG2 01-23 → MED/SURG 01-25 18:56
PROVIDERS: ADMIT Internal Medicine; ATTEND Internal Medicine
PROC: 30233N1 Transfusion of Nonautologous Red Blood Cells into Peripheral Vein, Percutaneous Approach (ICD-10-PCS; 2020-01-24)
PROC: 0Y6C0Z1 Detachment at Right Upper Leg, High, Open Approach (ICD-10-PCS; principal; 2020-01-25 13:30)
DX: E11.52 Type 2 diabetes mellitus with diabetic peripheral angiopathy with gangrene (principal); E43 Unspecified severe protein-calorie malnutrition; L03.116 Cellulitis of left lower limb; Z68.1 Body mass index [BMI] 19.9 or less, adult; D64.9 Anemia, unspecified; I10 Essential (primary) hypertension; E78.5 Hyperlipidemia, unspecified; M06.9 Rheumatoid arthritis, unspecified; Z79.84 Long term (current) use of oral hypoglycemic drugs; Z88.2 Allergy status to sulfonamides; Z88.8 Allergy status to other drugs, medicaments and biological substances; Z91.013 Allergy to seafood; Z11.59 Encounter for screening for other viral diseases; D72.819 Decreased white blood cell count, unspecified; K59.00 Constipation, unspecified; Z79.01 Long term (current) use of anticoagulants
CPT/HCPCS: 36415; 80048; 80053; 82948; 83735; 85025; 86850; 86900; 86920; 88307; 96372; 97139; J0696; J1170; J2001; J2250; J2370; J2405; J2710; J3010; J7030; J7050; P9016; U0002

== ENCOUNTER 2020-02-12 18:00 | Observation (INO) | payer MEDICARE ==
[2020-02-12 20:50] VITALS: BP 148/87
--- NOTE | 2020-02-12 20:50 | NUR ---
PATIENT ARRIVES TO UNIT FROM [facility]. REPORT WAS NOT RECEIVED. CALLED [facility]. SPOKE TO NURSE MUHAMMAD ASKING FOR REPORT. REPORTS "REPORT NOT USUALLY GIVEN FOR PATIENTS COMING TO HOSPITAL FOR PROCEDURES." SENIOR BACKUP ADMINISTRATOR ON UNIT AT TIME OF ARRIVAL. SENIOR BACKUP ADMINISTRATOR AWARE.
[2020-02-12 21:00] VITALS: BP 148/87
[2020-02-12] MEDS: INSULIN LISPRO 100 UNIT/1 ML 3ML VIAL SQ SCH (21:00)
[2020-02-12] MEDS ORDERED: DEXTROSE 50% SYRINGE 50 ML IV PRN (21:00)
[2020-02-12] MEDS ORDERED: ONDANSETRON HCL 4 MG ORAL DISINTEGRATING TAB PO PRN (21:00)
[2020-02-12] MEDS ORDERED: ACETAMINOPHEN 325 MG TAB PO PRN (21:00)
[2020-02-12] MEDS ORDERED: ATORVASTATIN 40 MG TAB PO SCH (21:00)
[2020-02-12] MEDS ORDERED: ALBUTEROL/IPRATROPIUM 3 ML NEB NEB PRN (21:00)
--- OUTSIDE RECORDS SUMMARY | 2020-02-12 21:40 | XMS REPORT | Clinical Summary ---
Author Author [facility] [place] [facility] Address Unknown Phone Unavailable Care Team Providers Care Operations Staff Specialist Security Name Role Phone Shmuel Thompson MD PCP [...] VEIN GRAFT 11/18/2019 Surgery Cardiothoracic Surg Rei Swift MD Jatzlau, Amybeth, APRN 11/18/2019 Anesthesia Cardiothoracic Surg Ralph Pham MD Nguyen, Leanne, MD PAD (peripheral artery disease) ([facility]) (P rimary Dx) 11/18/2019 [facility] Internal Ri dicine - Encounter 11/24/2019 11/18/2019 Travel Finn Tolbert MD Sweeney, Michael S., MD Preop testing 11/13/2019 Hospital Radiology Encounter Ralph Tolbert MD Preop testing (Primary Dx) 11/13/2019 Pre-Admit Pre-Admission Testi ng Testing Appointment 11/13/2019 Travel 11/12/2019 Travel after 02/11/2019 Social History Date Tobacco Use Types Packs/Day [...] ot Implanted Type 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 Manufactur er 02/23/2024 [id number] / / [employer] Hemoclip Plus W/ Medical N/A: N/A TELEFLEX Tape Ti Lg - [id number] Clips for MEDICAL Implanted: Qty: 1 on 11/18/2019 by Internal Ralph Tolbert MD at [facility] 07/11/2024 [id number] / / [id number] [facility] Vasclr Ptfe 1.2x10cm Vascular N/A: N/A BARD 1.65mm - [id number] Graft PERIPHERAL Implanted: Qty: 1 on 11/18/2019 by VASCULAR Ralph Tolbert MD at [facility] Procedures Comments Procedure Name Priority Date/Time [...] ARTERIAL LINE Routine 11/18/2019 8:48 AM CDT OR AN ELECTIVE Routine 11/18/2019 ENDOTRACHEAL AIRWAY 8:48 [...] 11/13/2019 Preop testing 5:03 PM CDT after 02/11/2019 Results * POC glucose (11/24/2019 11:16 AM CDT) Only the most recent of 34 results within the time period is included. [facility] POC glucose 208 (H) 65 - 99 mg/dL DUNN Comment: DRUZE Adjunct Communications Faculty Member Name: Keaton Yee [facility] Device ID: [id number] Chartable: [facility] Notified RN Specimen Blood Performing Organization Address City/State/Zipcode Ph one Number [facility] DEPARTMENT OF [address] [place] [address] PATHOLOGY AND GENOMIC MEDICINE [address] * CBC with platelet and differential (11/24/2019 4:45 AM CDT) Only the most recent of 7 results within the time period is included. [facility] WBC 5.65 4.50 - 11.00 k/uL [facility] RBC 2.50 (L) 4.20 - 5.50 m/uL [facility] HGB 7.5 (L) 12.0 - 16.0 g/dL [facility] HCT 23.4 (L) 37.0 - 47.0 % [facility] MCV 93.6 82.0 - 100.0 fL [facility] MCH 30.0 27.0 - 34.0 pg [facility] MCHC 32.1 31.0 - 37.0 g/dL [facility] RDW - SD 46.9 37.0 - 55.0 fL [facility] MPV 8.9 8.8 - 13.2 fL [facility] Platelet count 380 150 - 400 k/uL [facility] Nucleated RBC 0.00 /100 WBC [facility] Neutrophils 59.9 39.0 - 69.0 % [facility] Lymphocytes 25.3 25.0 - 45.0 % [facility] Monocytes 10.4 (H) 0.0 - 10.0 % [facility] Eosinophils 3.7 0.0 - 5.0 % [facility] Basophils 0.5 0.0 - 1.0 % [facility] Immature 0.2Comment: "Immature 0.0 - 1.0 % DUNN granulocytes granulocytes" (promyelocytes, METHOD IST myelocytes, metamyelocytes) HOSPITAL Specimen Blood Performing Organization Address City/[facility] one Number [facility] DEPARTMENT OF [address] [place] [address] PATHOLOGY AND [facility] MEDICINE [address] * Estimated GFR (11/24/2019 4:00 AM CDT) Only the most recent of 8 results within the time period is included. [facility] Estimated GFR >=90 mL/min/1.73 m2 DUNN Comment: [facility] Interpretation G1 >=90 Normal or high G2 [...] published in 2014. Specimen Performing Organization Address City/[facility] Ph one Number [facility] DEPARTMENT OF [address] [place] [address] PATHOLOGY AND GENOMIC MEDICINE [address] * Basic metabolic panel (11/24/2019 4:00 AM CDT) Only the most recent of 8 results within the time period is included. [facility] Sodium 134 (L) 135 - 148 mEq/L [facility] Potassium 4.0 3.5 - 5.0 mEq/L [facility] Chloride 99 98 - 112 mEq/L [facility] CO2 22 (L) 24 - 31 mEq/L [facility] Anion gap 13@ANIO 7 - 15 mEq/L [facility] BUN 14 8 - 23 mg/dL [facility] Creatinine 0.51 0.50 - 0.90 mg/dL [facility] Glucose 145 (H) 65 - 99 mg/dL [facility] Calcium 9.9 8.8 - 10.2 mg/dL [facility] Specimen Performing Organization Address [facility] Ph one Number [facility] DEPARTMENT OF [address] [place] [address] PATHOLOGY AND GENOMIC MEDICINE [address] * Phosphorus level (11/20/2019 4:30 AM CDT) Only the most recent of 3 results within the time period is included. Phosphorus 2.3 (L) 2.4 - 4.5 mg/dL [facility] Specimen Blood Performing Organization Address [facility] Ph one Number [facility] DEPARTMENT OF [address] [place] [address] PATHOLOGY AND GENOMIC MEDICINE [address] * Magnesium level (11/20/2019 4:30 AM CDT) Only the most recent of 3 results within the time period is included. Magnesium 1.7 1.6 - 2.4 mg/dL [facility] Specimen Blood Performing Organization Address [facility] Ph one Number [facility] DEPARTMENT OF [address] [place] [address] PATHOLOGY AND GENOMIC MEDICINE [address] * Ionized calcium (11/20/2019 4:30 AM CDT) Only the most recent of 2 results within the time period is included. pH 7.54 [facility] Ionized calcium 1.14 1.11 - 1.32 mmol/L [facility] Specimen Blood Performing Organization Address [facility] Ph one Number [facility] DEPARTMENT OF [address] [place] [address] PATHOLOGY AND GENOMIC MEDICINE [address] * Partial thromboplastin time, activated (11/20/2019 4:25 AM CDT) Only the most recent of 4 results within the time period is included. PTT 44.0 (H) 23.0 - 36.0 sec DUNN Comment: DRUZE PTT therapeutic range for HOSPITAL unfractionated heparin is 61.0-112.0 seconds which corresponds to Anti-Xa 0.3-0.7 U/ml. Specimen Blood Performing Organization Address [facility] one Number [facility] DEPARTMENT OF [address] [place] [address] PATHOLOGY AND GENOMIC MEDICINE DUNN DRUZE [address] [place] [id number] HOSPITAL * XR Chest 1 Vw Portable (11/19/2019 4:52 AM CDT) Only the most recent of 2 results within the time period is included. Specimen Narrative Performed At EXAMINATION: XR CHEST 1 VW PORTABLE [facility] CLINICAL HISTORY: ICU pt stable wit h no clinical status changes IMPRESSION: Follow-up exam demonstrates no interval change, and no new infiltrate. [facility]-[id number] Procedure Note Hm Interface, Radiology Results Incoming - 11/19/2019 6:21 AM CDT EXAMINATION: XR CHEST 1 VW PORTABLE CLINICAL HISTORY: ICU pt stable with no clinical status changes IMPRESSION: Follow-up exam demonstrates no interval change, and no new infiltrate. [facility]-[id number] Performing Organization Address [facility] one Number [facility] [address] [place] [address] * ECG 12 lead (11/19/2019 4:41 AM CDT) Only the most recent of 2 results within the time period is included. Ventricular 82 [facility] rate Atrial rate 82 [facility] OR interval 172 [facility] QRSD interval 84 [facility] QT interval 380 [facility] QTC interval 443 [facility] P axis 1 67 [facility] QRS axis 1 58 [facility] T wave axis 65 [facility] EKG impression Normal sinus rhythm-Anterior [facility] MUSE infarct , age undetermined-Abnormal ECG-In automated comparison with ECG of 18-NOV-2019 14:25,-Anterior infarct is now present-Nonspecific T wave abnormality now evident in Anterior leads- Specimen Narrative Performed At This result has an attachment that is n ot available. Performing Organization Address [facility] one Number [facility] MUSE [address] [place] [address] * Prothrombin time with INR (11/19/2019 12:15 AM CDT) Only the most recent of 3 results within the time period is included. [facility] Prothrombin 15.1 (H) 11.5 - 14.5 sec [facility] INR 1.2 DUNN Comment: [facility] Normalized HOSPITAL Ratio (INR) is a therapeutic monitoring tool for patients who are stable on oral anticoagulant therapy. An INR of 2.0-3.0 is suggested for deep vein thrombosis/pulmonary embolism. Specimen Blood Performing Organization Address City/[facility] Ph one Number [facility] DEPARTMENT OF [address] [place] [address] PATHOLOGY AND GENOMIC MEDICINE [address] * Anti Xa, unfractionated (11/18/2019 2:24 PM CDT) [facility] Anti Xa, <0.10 (L)Comment: Therapeutic 0.30 - 0.70 U/mL DUNN unfractionated Range: 0.30 - 0.70 U/mL [facility] Specimen Blood Performing Organization Address City/[facility] Ph one Number [facility] DEPARTMENT OF [address] [place] [address] PATHOLOGY AND GENOMIC MEDICINE [address] * Fibrinogen (11/18/2019 2:24 PM CDT) [facility] Fibrinogen 362 200 - 450 mg/dL [facility] Specimen Blood Performing Organization Address City/[facility] Ph one Number [facility] DEPARTMENT OF [address] [place] [address] PATHOLOGY AND GENOMIC MEDICINE [address] * CBC hemogram (11/18/2019 2:24 PM CDT) [facility] WBC 4.23 (L) 4.50 - 11.00 k/uL [facility] RBC 2.95 (L) 4.20 - 5.50 m/uL [facility] HGB 9.0 (L) 12.0 - 16.0 g/dL [facility] HCT 26.2 (L) 37.0 - 47.0 % [facility] MCV 88.8 82.0 - 100.0 fL [facility] MCH 30.5 27.0 - 34.0 pg [facility] MCHC 34.4 31.0 - 37.0 g/dL [facility] RDW - SD 43.9 37.0 - 55.0 fL [facility] MPV 8.6 (L) 8.8 - 13.2 fL [facility] Platelet count 288 150 - 400 k/uL [facility] Nucleated RBC 0.00 /100 WBC [facility] Specimen Blood Performing Organization Address [facility] one Number [facility] DEPARTMENT OF [address] [place] [address] PATHOLOGY AND [facility] MEDICINE [address] * Ionized calcium, arterial (11/18/2019 2:20 PM CDT) Only the most recent of 2 results within the time period is included. [facility] Ionized 1.09 (L) 1.11 - 1.32 mmol/L [facility] Specimen Blood Performing Organization Address [facility] one Number [facility] DEPARTMENT OF [address] [place] [address] PATHOLOGY AND GENOMIC MEDICINE [address] * Arterial blood gas (11/18/2019 2:20 PM CDT) [facility] pH, arterial 7.48 (H) 7.35 - 7.45 [facility] pCO2, arterial 28 (L) 35 - 45 mmHg [facility] pO2, arterial 191 (H) 80 - 90 mmHg [facility] Bicarbonate, 20.7 (L) 21.0 - 28.0 mmol/L [facility] Base excess, -2 -2 - 2 mEq/L [facility] O2 saturation, 100 95 - 100 % [facility] Specimen Blood Performing Organization Address [facility] one Number [facility] DEPARTMENT OF [address] [place] [address] PATHOLOGY AND [facility] MEDICINE [address] * Activated clotting time (11/18/2019 12:53 PM CDT) Only the most recent of 5 results within the time period is included. Pathologist [facility] Activated 113 96 - 152 sec DUNN clotting time Comment: DRUZE Adjunct Communications Faculty Member Name: Ignacio Britton A [facility] Device ID: [id number] Specimen Performing Organization Address City/[facility] Ph one Number [facility] DEPARTMENT OF [address] [place] [address] PATHOLOGY AND GENOMIC MEDICINE [address] * Sodium level, syringe (11/18/2019 11:04 AM CDT) Sodium, syringe 138 135 - 148 mEq/L [facility] Specimen Blood Performing Organization Address City/[facility] one Number [facility] DEPARTMENT OF [address] [place] [address] PATHOLOGY AND GENOMIC MEDICINE [address] * Potassium, syringe (11/18/2019 11:04 AM CDT) Potassium, 3.8 3.5 - 5.0 mEq/L [facility] Specimen Blood Performing Organization Address [facility] one Number [facility] DEPARTMENT OF [address] [place] [address] PATHOLOGY AND GENOMIC MEDICINE [address] * Hemoglobin, syringe (11/18/2019 11:04 AM CDT) Hemoglobin, 9.4 (L) 12.0 - 16.0 g/dL [facility] Specimen Blood Performing Organization Address [facility] one Number [facility] DEPARTMENT OF [address] [place] [address] PATHOLOGY AND GENOMIC MEDICINE [address] * Glucose level, syringe (11/18/2019 11:04 AM CDT) Glucose, 161 (H) 65 - 99 mg/dL [facility] Specimen Blood Performing Organization Address City/[facility] one Number [facility] DEPARTMENT OF [address] [place] [address] PATHOLOGY AND GENOMIC MEDICINE [address] * Arterial blood gas, corrected (11/18/2019 11:04 AM CDT) pH, arterial 7.51 (H) 7.35 - 7.45 [facility] pCO2, arterial 29 (L) 35 - 45 mmHg [facility] pO2, arterial 343 (H) 80 - 90 mmHg [facility] Temperature, 37.[address] [facility] O2 saturation, 100 95 - 100 % DUNN arterial [facility] pH, arterial 7.51 [facility] pCO2, arterial 29 mmHg [facility] pO2, arterial 343 mmHg [facility] Base excess, 1 -2 - 2 mEq/L [facility] Specimen Blood Performing Organization Address City/State/[facility] Ph one Number [facility] DEPARTMENT OF [address] [place] [address] PATHOLOGY AND GENOMIC MEDICINE [id number] [place] [address] * Arterial line (11/18/2019 8:48 AM CDT) Narrative Performed At Rolan Sheriff CRNA 8:48 AM Arterial line Performed by: Rolan Sheriff CR NA Authorized by: Rei Valadez M D Patient Location: OR End Time: 11/18/2019 8:33 AM Staff: Anesthesiologist: Rei Valadez MD Resident/ANISHA/AA: Rolan Sheriff CRNA Performed by: Resident/COMMUNICATION ANALYST/AA Pre-procedure: patient identified, IV c hecked, site [...] Difficult Airway: No Anesthesiologist: Rei Valadez MD Resident/COMMUNICATION ANALYST/AA: Rolan Sheriff CRNA Performed by: resident/COMMUNICATION ANALYST/AA Preoxygenated with 100% O2: Yes C-spine Precautions [...] process or active disease of the chest. [id number] Procedure Note Interface, Radiology Results Incoming - [...] process or active disease of the chest. [id number] Performing Organization Address City/State/Zipcode Ph one Number [facility] [address] [place] [address] * Hemoglobin A1c (11/13/2019 5:35 PM CDT) Pathologist [facility] Hemoglobin A1C 6.6 (H) 4.0 - 5.6 % DUNN Comment: DRUZE HbA1c cutoffs for diagnosing HOSPITAL diabetes: 4.0% - 5.6% = normal 5.7% - 6.4% = increased risk for diabetes (prediabetes)9 >=6.5% = diabetes9 Goals for glycemic control (ADA 2016) < 7.0% Target for non adults with diabetes. More or less stringent targets may be appropriate for individual patients. <7.5% Target for Children and adolescents with type 1 diabetes. Specimen Blood Performing Organization Address City/[facility] Ph one Number [facility] DEPARTMENT OF [address] [place] [address] PATHOLOGY AND GENOMIC MEDICINE [address] * ECG Pre/Post Op (11/13/2019 5:32 PM CDT) Pathologist [facility] Ventricular 85 [facility] rate Atrial rate 85 [facility] OR interval 154 [facility] QRSD interval 78 [facility] QT interval 370 [facility] QTC interval 440 [facility] P axis 1 69 [facility] QRS axis 1 48 [facility] T wave axis 66 [facility] EKG impression Normal sinus rhythm-Normal [facility] MUSE ECG-No previous ECGs available- Specimen Narrative Performed At This result has an attachment that is n ot available. Performing Organization Address [facility] [place] [address] * Prepare RBC (11/13/2019 5:12 PM CDT) Pathologist [facility] Product name Red Blood Cells -1, Leukored [facility] Unit number [id number] [facility] Product code [id number] [facility] Dispense status Returned to BB not transfused [facility] Blood [id number] DUNN expiration date [facility] Blood type code 6200 [facility] Blood type A POSITIVE [facility] Compatibility Compatible [facility] Product name Red Blood Cells -1, Leukored [facility] Unit number [id number] [facility] Product code [id number] [facility] Dispense status Returned to BB not transfused [facility] Blood [id number] DUNN expiration date [facility] Blood type code 6200 [facility] Blood type A POSITIVE [facility] Compatibility Compatible [facility] Specimen Performing Organization Address City/[facility] Ph one Number [facility] DEPARTMENT OF [address] [place] [address] PATHOLOGY AND GENOMIC MEDICINE [address] * Type and screen (11/13/2019 5:12 PM CDT) ABO grouping A [facility] Rh type POS [facility] Antibody screen NEG DUNN (gel) [facility] Specimen Blood Performing Organization Address City/[facility] Ph one Number [facility] DEPARTMENT OF [address] [place] [address] PATHOLOGY AND GENOMIC MEDICINE [address] * COVID-19 qualitative PCR (11/13/2019 5:03 PM CDT) Interpretation Negative results do not CHANDRA preclude 2019-nCoV infection [facility] and should not be used as the HOSPITAL sole basis for treatment or other patient management decisions. Negative results must be combined with clinical observations, patient history, and epidemiological information. COVID-19 Not-Detected Not-Detected [facility]UNN qualitative PCR [facility] result HOSPITAL COVID-19 See link below for PDF Lab DUNN qualitative PCR ReportComment: Case Number: [facility] [id number] HOSPITAL Specimen Nasopharyngeal Performing Organization Address [facility] Ph one Number [facility] DEPARTMENT OF [address] [place] [address] PATHOLOGY AND GENOMIC MEDICINE [address] after 02/11/2019 Insurance Type Payer Benefit Subscriber ID Effective Phone Address Plan / Dates Group HMO [employer] CIGNA xxxxxxxxxxx 2019-P [employer]ALTH[employer]I resent NG O MCR [id number] Advance Directives For more information, please contact: [phone] Patient Recooperer Explanation Type Date Recorded Advance Directives, Living Will and Medical Power of Commercial Loan Coordinator
--- OUTSIDE RECORDS SUMMARY | 2020-02-12 21:40 | XMS REPORT | Continuity of Care Document ---
Author Author [facility] t Organization [facility] Address [address] [place] [address] Phone Unavailable Care Team Providers Care Gun Stock Maker Name Role Phone SADIE LOPEZ, [place] PCP Didi LOPEZ, SNavneet Rosas Attphys Chandrika LOPEZ, Cindi Attphys Allyson LOPEZ, Ameena Minaya Attphys Kevin Cordova APRN Attphys Didi LOPEZ, Lucian Briseno Attphys Irving GRAY Attphys Unavailable ERIC TOLBERT Admphys Unavailable Payers Payer Name Policy Type Policy Number Effective Date Expiration Date Adalgisa [employer] [facility] [id number] -PresentHMO xxxxxxxxxxx 2019 00:00:00 Chandra Meth odist Problems Condition Name Condition Details Condition Category Status Onset Date Resolution Date Last Treatment Date Treating Clinician Comments Source PAD (peripheral artery disease) PAD (peripheral artery disease) Dis ease Active 2019-11-18 00:00:00 Prateek Isaacs Problem Condition Active [facility] Allergies, Adverse Reactions, Alerts Allergy Name Allergy Type Status Severity Reaction(s) Onset Date Inacti ve Date Treating Clinician Comments Source sulfamethoxazole DA Active SV 2019-12-03 00:00:00 [facility] trimethoprim DA Active SV 2019-12-03 00:00:00 [facility] Sulfa (Sulfonamide Antibiotics) Propensity to adverse reactions to drug Active Anxiety 2019-11-13 00:00:00 Lindsay Isaacs shrimp Allergy to substance Active RASH 2019-10-21 00:00:00 [facility] TUNA Allergy to substance Active HIVES, RASH 2019-10-21 00:00:00 [facility] Sulfamethoxazole Allergy to substance Active 2018-08-15 00: 00:00 [facility] Trimethoprim Allergy to substance Active 2018-08-15 00:00:0 0 [facility] Enalapril Propensity to adverse reactions Active COUGH 08-15 00:00:00 [facility] sulfamethoxazole DA Active 2015-06-25 00:00:00 [facility] trimethoprim DA Active 2015-06-25 00:00:00 [facility] Social History Social Habit Start Date Stop Date Quantity Comments Source History SDOH Alcohol Std Drinks Prateek Isaacs History SDOH Alcohol Binge Prateek Isaacs Sex Assigned [place] romero Zoroastrian Alcohol intake 2019-11-20 00:00:00 2019-11-20 00:00:00 Lifetime non-drinker (finding) Prateek Arreolaist History SDOH Alcohol Frequency 2019-11-13 00:00:00 2019-11-13 [...] Isaacs mupirocin 2 % ointment kit 2019-11-24 14::2019-11-24 00:00:00 No Apply topically. Prateek Isaacs acetaminophen (TYLENOL) 500 MG tablet 2019-11-24 14:2019-11-24 00:00:00 No 500mg Q6H Take 500 mg by mouth every 6 (six) hours as needed for mild pain. Prateek Isaacs aspirin (ECOTRIN) 81 MG enteric coated tablet 20 02-12-11 14:2019-11-24 00:00:00 No 81mg QD Take 81 mg [...] 2019-11-24 14:24:08 Yes Q2D Take by mo ut every other day. Prateek Isaacs cholecalciferol, vitamin [...] % ointment 2019-11-24 00:00:00 202 23:59:00 No [id number] Apply top ically 3 (three) times a [...] Needed as needed for Moderate Pain (4-6) [facility] Amlodipine Besylate (Norvasc) 10 Mg TAB Amlodipine Besylate (Norvasc) 10 Mg TAB Yes 10 Daily [facility] Calcium Carbonate/Vitamin D3 (Oyster Shell Calcium + D Tab) 1 Each TABLET Calcium Carbonate/Vitamin D3 (Oyster Shell Calcium + D Tab) 1 Each TABLET Yes 1 Use As Directed [facility] Cholecalciferol (Vitamin D3) (Vitamin D3) 2,000 Unit T AB.CHEW Cholecalciferol (Vitamin D3) (Vitamin D3) 2,000 Unit TAB.CHEW Yes 2000 Daily [facility] Famotidine Famotidine Yes 20 Daily as needed fo r Indigestion [facility] Folic Acid Folic Acid Yes 1 Twice A Day [facility] Loperamide Hcl (Loperamide) 2 Mg TABLET Loperamide Hcl (Lorie ramide) 2 Mg TABLET Yes 2 As Needed as needed for Diarrhe a [facility] Losartan Potassium Losartan Potassium Yes 50 Da ofelia [facility] Metformin Hcl Metformin Hcl Yes 1000 Daily [facility] Metformin Hcl Metformin Hcl Yes 500 Bedtime [facility] Mupirocin Mupirocin Yes 1 Daily [facility] Aspirin (Adult Low Dose Aspirin Ec) 81 Mg TABLET.DR Arroyo pirin (Adult Low Dose Aspirin Ec) 81 Mg TABLET. 2019-10-21 00:00:00 No 81 Daily [facility] Glimepiride (Amaryl) 2 Mg TABLET Glimepiride (Amaryl) 2 Mg TABLE T 2019-10-21 00:00:00 No 2 Daily [facility] Hydroxychloroquine Sulfate (Plaquenil) 200 Mg TAB Hydr oxychloroquine Sulfate (Plaquenil) 200 Mg TAB 2019-10-21 00:00:00 No 200 D aily [facility] Levothyroxine Sodium (Levoxyl) 50 Mcg TABLET Levothyro xine Sodium (Levoxyl) 50 Mcg TABLET 2019-10-21 00:00:00 No 50 Daily [facility] Metformin Hcl (Glucophage Xr) 500 Mg TAB.ER.24H Metfor min Hcl (Glucophage Xr) 500 Mg TAB.ER.24H 2019-10-21 00:00:00 No 500 Tw[address] A [address] [facility] Methotrexate Sodium (Methotrexate) 2.5 Mg TAB.DS.PK Me thotrexate Sodium (Methotrexate) 2.5 Mg TAB.DS.PK 2019-10-21 00:00:00 No 20 Weekly [facility] Vital Signs Vital Name Observation Time Observation Value Comments Source Body Temperature 2020-02-01 11:07:00 99.0 [degF] [facility] BMI (Body Mass Index) 2020-01-31 00:07:00 16.9 kg/m2 [facility] Weight 2020-01-23 01:00:00 85 [lb_av] [facility] Systolic blood pressure 2019-11-24 11:15:15 123 mm[Hg] Chandra Zoroastrian Diastolic blood pressure 2019-11-24 11:15:15 60 mm[Hg] [facility] Heart rate 2019-11-24 11:15:15 94 /min [facility] Body temperature 2019-11-24 11:15:15 36.61 Melissa Enma charlene Zoroastrian Respiratory rate 2019-11-24 11:15:15 18 /min Enma charlene Zoroastrian Oxygen saturation in Arterial blood by Pulse oximetry 11-23 11:15:15 100 /min [facility] Body weight 2019-11-24 05:00:00 40.824 kg Chandra Zoroastrian BMI 2019-11-24 05:00:00 18.18 kg/m2 [place] Zoroastrian Body height 2019-11-18 06:15:00 149.9 cm Prateek Isaacs Procedures Procedure Date / Time Performed Performing Clinician Sourc e POC GLUCOSE 2019-11-24 11:16:00 Cindi Mao Meth odist POC GLUCOSE 2019-11-24 07:55:00 Cindi Mao Meth odist HC COMPLETE BLD COUNT W/AUTO DIFF 2019-11-24 04:45:00 Adali Mao BASIC METABOLIC PANEL 2019-11-24 04:00:00 Cindi Mao ESTIMATED GFR 2019-11-24 04:00:00 Cindi Mao Meth odist POC GLUCOSE 2019-11-23 21:13:00 Cindi Mao Meth odist POC GLUCOSE 2019-11-23 17:16:00 Cindi Mao Meth odist POC GLUCOSE 2019-11-23 11:17:00 MaoCindi [place] Meth odist POC GLUCOSE 2019-11-23 07:27:00 MaoCindi [place] Meth odist HC COMPLETE BLD COUNT W/AUTO DIFF 2019-11-23 04:30:00 MaoAdali staples Chandra Zoroastrian BASIC METABOLIC PANEL 2019-11-23 04:30:00 MaoCindi staplesanastasia Isaacs ESTIMATED GFR 2019-11-23 04:30:00 MaoCindi [place] Meth odist POC GLUCOSE 2019-11-23 04:23:00 MaoCindi [place] Meth odist POC GLUCOSE 2019-11-23 01:07:00 MaoCindi [place] Meth odist POC GLUCOSE 2019-11-23 01:05:00 MaoCindi [place] Meth odist POC GLUCOSE 2019-11-22 21:32:00 MaoCindi hinojosa [place] Meth odist CONSULT TO OSTOMY CARE NURSE 2019-11-22 18:31:01 Ale Nicole Zoroastrian POC GLUCOSE 2019-11-22 17:48:00 MaoCindi [place] Meth odist POC GLUCOSE 2019-11-22 11:49:00 MaoCindi [place] Meth odist POC GLUCOSE 2019-11-22 07:37:00 MaoCindi [place] Meth odist POC GLUCOSE 2019-11-22 04:42:00 MaoCindi [place] Meth odist BASIC METABOLIC PANEL 2019-11-22 04:40:00 Misty Maravilla HC COMPLETE BLD COUNT W/AUTO DIFF 2019-11-22 04:40:00 Jesica Maravilla ESTIMATED GFR 2019-11-22 04:40:00 Misty Maravilla ethodist POC GLUCOSE 2019-11-22 00:02:00 MaoCindi [place] Meth odist POC GLUCOSE 2019-11-21 21:21:00 MaoCindi [place] Meth odist POC GLUCOSE 2019-11-21 18:00:00 MaoCindi [place] Meth odist POC GLUCOSE 2019-11-21 12:19:00 MaoCindi [place] Meth odist POC GLUCOSE 2019-11-21 08:04:00 MaoCindi staples odist BASIC METABOLIC PANEL 2019-11-21 03:15:00 Misty Maravilla HC COMPLETE BLD COUNT W/AUTO DIFF 2019-11-21 03:15:00 Jesica Maravilla ESTIMATED GFR 2019-11-21 03:15:00 Misty Maravilla ethodist POC GLUCOSE 2019-11-20 20:53:00 MaoCindi staples Meth odist POC GLUCOSE 2019-11-20 17:36:00 MaoCindi staples Chandra Meth odist POC GLUCOSE 2019-11-20 13:47:00 MaoCindi staples [place] Meth odist POC GLUCOSE 2019-11-20 08:03:00 MaoCindi staples Chandra Jean-Pierre odist MAGNESIUM LEVEL 2019-11-20 04:30:00 Misty Maravilla [...] odist POC GLUCOSE 2019-11-19 16:24:00 MaoCindi staples [place] Meth odist POC GLUCOSE 2019-11-19 14:18:00 MaoCindi staples Meth odist POC GLUCOSE 2019-11-19 11:47:00 MaoCindi staples Chandra Meth odist POC GLUCOSE 2019-11-19 07:42:00 MaoCindi staples Meth odist XR CHEST 1 VW PORTABLE 2019-11-19 04:52:00 Dominique Estrella ECG 12-LEAD 2019-11-19 04:41:39 Dominique Estrella on Zoroastrian POC GLUCOSE 2019-11-19 03:43:00 MoaCindi hinojosa Meth odist BASIC METABOLIC PANEL 2019-11-19 00:15:00 Ricardo Joe Zoroastrian PARTIAL THROMBOPLASTIN TIME (PTT) 2019-11-19 00:15:00 Ricardo Cadena Zoroastrian HC COMPLETE BLD COUNT W/AUTO DIFF 2019-11-19 00:15:00 Leffall, B martinez Isaacs IONIZED CALCIUM 2019-11-19 00:15:00 Dominique Estrella on Zoroastrian MAGNESIUM LEVEL 2019-11-19 00:15:00 Dominique Estrella on Zoroastrian PHOSPHORUS LEVEL 2019-11-19 00:15:00 Dominique Estrella Zoroastrian PROTHROMBIN TIME WITH INR 2019-11-19 00:15:00 Dominique Estrella ESTIMATED GFR 2019-11-19 00:15:00 Dominique Estrella on Zoroastrian POC GLUCOSE 2019-11-19 00:00:00 ChandrikaCindi Meth odist POC GLUCOSE 2019-11-18 19:57:00 ChandrikaCindi Meth odist POC GLUCOSE 2019-11-18 17:42:00 ChandrikaCindi Prateek Meth odist ECG 12-LEAD 2019-11-18 14:25:52 Ricardo Joe Zoroastrian XR CHEST 1 VW PORTABLE 2019-11-18 14:25:00 Ricardo Joe Zoroastrian BASIC METABOLIC PANEL 2019-11-18 14:24:00 Ricardo Joe Zoroastrian CBC HEMOGRAM 2019-11-18 14:24:00 Ricardo Joe Zoroastrian FIBRINOGEN 2019-11-18 14:24:00 Ricardo Joe Zoroastrian MAGNESIUM LEVEL 2019-11-18 14:24:00 Ricardo Joe Zoroastrian PARTIAL THROMBOPLASTIN TIME (PTT) 2019-11-18 14:24:00 Georgesjenn Ricardo cochran PHOSPHORUS LEVEL 2019-11-18 14:24:00 Ricardo Joe PROTHROMBIN TIME WITH INR 2019-11-18 14:24:00 Ricardo Joe Zoroastrian ESTIMATED GFR 2019-11-18 14:24:00 Ricardo Joe ANTI [...] Tolbert ARTERIAL BLOOD GAS, CORRECTED 2019-11-18 11:04:00 Sihlo Tolbert SODIUM LEVEL, SYRINGE 2019-11-18 11:04:00 Eric Tolbert Zoroastrian POTASSIUM, SYRINGE 2019-11-18 11:04:00 Eric Tolbert Zoroastrian HEMOGLOBIN, SYRINGE 2019-11-18 11:04:00 Eric Tolbert Zoroastrian IONIZED CALCIUM, ARTERIAL 2019-11-18 11:04:00 Eric Tolbert GLUCOSE LEVEL, SYRINGE 2019-11-18 11:04:00 Eric Tolbert Zoroastrian ARTERIAL LINE 2019-11-18 08:48:33 Rolan Sheriff [place] AN ELECTIVE ENDOTRACHEAL AIRWAY 2019-11-18 08:48:02 Rolan Sheriff POC GLUCOSE 2019-11-18 06:14:00 Eric Tolbert XR CHEST 2 VW 2019-11-13 18:49:21 Eric Tolbert HEMOGLOBIN A1C 2019-11-13 17:35:00 Kevin Cordova ECG PRE/POST OP 2019-11-13 17:32:49 Eric Tolbert HC COMPLETE BLD COUNT W/AUTO DIFF 2019-11-13 17:12:00 Marleny Tolbert BASIC METABOLIC PANEL 2019-11-13 17:12:00 Eric Tolbert PROTHROMBIN TIME WITH INR 2019-11-13 17:12:00 Eric Tolbert PARTIAL THROMBOPLASTIN TIME (PTT) 2019-11-13 17:12:00 Marleny Tolbert TYPE AND SCREEN 2019-11-13 17:12:00 Eric Tolbert ESTIMATED GFR 2019-11-13 17:12:00 Eric Tolbert PREPARE RBC 2019-11-13 17:12:00 Eric Tolbert COVID-19 QUALITATIVE PCR 2019-11-13 17:03:[address] CATHETER IN AORTA 2019-10-23 00:00:00 [facility] CONTRAST EXAM ABDOMINL AORTA 2019-10-23 00:00:00 [facility] ARTERY X-RAYS ARMS/LEGS 2019-10-23 00:00:00 [facility] Plan of Care Planned Activity Planned Date Details Comments Source Future Scheduled Test 2020-02-13 00:00:00 INFLUENZA VACCINE [code = INFLUENZA VACCINE] Prateek Isaacs Future Scheduled Test 2012 00:00:00 65+ PNEUMOCOCCAL V ACCINE (1 of 2 - PCV13) [code = 65+ PNEUMOCOCCAL VACCINE (1 of 2 - PCV13)] Prateek Isaacs Future Scheduled Test 1997 00:00:00 BREAST CANCER SCRE ENING [code = BREAST CANCER SCREENING] [facility] Future Scheduled Test 1997 00:00:00 COLONOSCOPY SCREEN ING [code = COLONOSCOPY SCREENING] [facility] Scheduled Test 1997 00:00:00 SHINGLES VACCINES (#1) [code = SHINGLES VACCINES (#1)] [facility] Instructions Lower Limb Amputation (Surgical) [facility] Encounters Start Date/Time End Date/Time Encounter Type Admission Type [facility] Care Department Encounter ID Source 2020-01-23 00:00:00 2020-02-01 17:41:00 Discharged Inpatient [facility] [id number] [facility] 2019-11-18 00:00:00 2019-11-24 00:00:00 Inpatient CINDI MAO [facility] [id number] [facility] 2019-11-13 00:00:00 2019-11-13 00:00:00 Outpatient MERRY TOLBERT [facility] [id number] [facility] 2019-11-13 00:00:00 2019-11-13 00:00:00 Outpatient MERRY TOLBERT [facility] [id number] [facility] 2019-10-23 06:20:00 2019-10-23 06:20:00 Registered Surgical Day Care [facility] [id number] [facility] 2018-08-15 12:20:00 2018-08-15 17:41:00 Departed Emergency Room 1 SHANTHI GRAY [facility] [id number] [facility] Results Test Description Test Time Test Comments Results Result Comments Source Capillary blood glucose measurement by glucometer (mas s/volume) 2020-02-01 14:55:00 Test Item Bedside Glucose (test code = 11657-1) 154 70-120 Meter ID: [id number] [facility]neyBlood leukocytes automated count (number/volume)2020-02-01 05:08:00* Test Item Value Reference Range Interpretation Comments White Blood Count (test code = 6690-2) 3.20 4.8-10.8 [facility] erythrocytes automated count (number/volume)2020-02-01 05:08:00* Test Item Value Reference Range Interpretation Comments Red Blood Count (test code = 789-8) 2.74 3.6-5.1 [facility] hemoglobin measurement (moles/volume)2020-02-01 05:08:00* Test Item Value Reference Range Interpretation Comments Hemoglobin (test code = 98925-3) 8.0 12.0-16.0 [facility]ney[facility] blood hematocrit (volume fraction)2020-02-01 05:08:00* Test Item Value Reference Range Interpretation Comments Hematocrit (test code = 4544-3) 25.2 34.2-44.1 [facility]ney[facility]ated erythrocyte mean corpuscular [id number] 05:08:00* Test Item Value Reference Range Interpretation Comments Mean Corpuscular Volume (test code = 787-2) 92.0 81-99 [facility]ney[facility] erythrocyte mean corpuscular hemoglobin (mass per erythrocyte)2020-02-01 05:08:00* Test Item Value Reference Range Interpretation Comments Mean Corpuscular Hemoglobin (test code = 785-6) 29.2 28-32 [facility]ney[facility] erythrocyte mean corpuscular hemoglobin concentration measurement (mass/volume)2020-02-01 05:08:00* Test Item Value Reference Range Interpretation Comments Mean Corpuscular Hemoglobin Concent (test code = 786-4) 31.7 31-35 [facility] McKinneyRDW [id number]-[id number] 05:08:00* Test Item Value Reference Range Interpretation Comments Red Cell Distribution Width (test code = 07488-6) 14.2 11.7 -14.4 [facility]ney[facility] blood platelet count (count/volume)2020-02-01 05:08:00* Test Item Value Reference Range Interpretation Comments Platelet Count (test code = 777-3) 343 140-360 [facility]neyAutom[facility] blood segmented neutrophil count as percentage of total [id number] 05:08:00* Test Item Value Reference Range Interpretation Comments Neutrophils (%) (Auto) (test code = 63744-4) 58.4 38.7-80.0 [facility]neyAutomated blood lymphocyte count as percentage ot total voelpurizj1238-23-55 05:08:00* Test Item Value Reference Range Interpretation Comments Lymphocytes (%) (Auto) (test code = 736-9) 25.0 18.0-39.1 [facility]ney[facility] blood monocyte count as percentage of total ungiuhrrwm4412-39-02 05:08:00* Test Item Value Reference Range Interpretation Comments Monocytes (%) (Auto) (test code = 5905-5) 13.8 4.4-11.3 [facility]neyAutr[facility]ed blood eosinophil count as percentage of total [id number] 05:08:00* Test Item Value Reference Range Interpretation Comments Eosinophils (%) (Auto) (test code = 713-8) 2.2 0.0-6.0 [facility]ney[facility] blood basophil count as percentage of total tydbtuaiaj1451-82-90 05:08:00* Test Item Value Reference Range Interpretation Comments Basophils (%) (Auto) (test code = 706-2) 0.3 0.0-1.0 [facility] McKinneyFluoroscopic procedure less than one hour [id number] 05:08:00* Test Item Value Reference Range Interpretation Comments IM GRANULOCYTES % (test code = IM GRANULOCYTES %) 0.3 0.0- 1.0 [facility]ney[facility] blood neutrophil count 2020-02-01 05:08:00* Test Item Value Reference Range Interpretation Comments Neutrophils # (Auto) (test code = 751-8) 1.9 2.1-6.9 [facility]ney[facility] lymphocytes count (number/volume) 2020-02-01 05:08:00* Test Item Value Reference Range Interpretation Comments Lymphocytes # (Auto) (test code = 88189-1) 0.8 1.0-3.2 [facility] monocytes automated count (number/volume)2020-02-01 05:08:00* Test Item Value Reference Range Interpretation Comments Monocytes # (Auto) (test code = 742-7) 0.4 0.2-0.8 [facility]ney[facility] blood eosinophil count 2020-02-01 05:08:00* Test Item Value Reference Range Interpretation Comments Eosinophils # (Auto) (test code = 711-2) 0.1 0.0-0.4 [facility] blood basophil count (count/volume)2020-02-01 05:08:00* Test Item Value Reference Range Interpretation Comments Basophils # (Auto) (test code = 704-7) 0.0 0.0-0.1 [facility]neyFluoroscopic procedure less than one hour [id number] 05:08:00* Test Item Value Reference Range Interpretation Comments Absolute Immature Granulocyte (auto (hetal t code = Absolute Immature Granulocyte (auto) 0.01 0-0.1 [facility] McKinneyFluoroscopic procedure less than one hour [id number] 05:08:00* Test Item Value Reference Range Interpretation Comments Differential Total Cells Counted (test code = Differmicaela tial Total Cells Counted) 100 [facility] blood neutrophils/100 leukocytes 2020-02-01 05:08:00* Test Item Value Reference Range Interpretation Comments Neutrophils % (Manual) (test code = 50322-6) 62 40-74 [facility] blood lymphocytes/100 leukocytes 2020-02-01 05:08:00* Test Item Value Reference Range Interpretation Comments Lymphocytes % (Manual) (test code = 737-7) 30 19-48 [facility] blood monocytes/100 leukocytes 2020-02-01 05:08:00* Test Item Value Reference Range Interpretation Comments Monocytes % (Manual) (test code = 744-3) 5 3.4-9.0 [facility] blood eosinophil count as percentage of total idylnjoinn5530-34-74 05:08:00* Test Item Value Reference Range Interpretation Comments Eosinophils % (Manual) (test code = 714-6) 3 0-7 [facility]neyBlood platelets count by estimate (number/volume)2020-02-01 05:08:00* Test Item Value Reference Range Interpretation Comments Platelet Estimate (test code = 99315-6) ADEQUATE [facility] McKinneyPlatelet [id number] 05:08:00* Test Item Value Reference Range Interpretation Comments Platelet Morphology Comment (test code = 62384-3) NORMAL [facility] McKinneyRBC [id number] 05:08:00* Test Item Value Reference Range Interpretation Comments Red Cell Morphology Comment (test code = 6742-1) NORMAL [facility] or plasma sodium measurement (moles/volume)2020-02-01 05:08:00* Test Item Value Reference Range Interpretation Comments Sodium Level (test code = 2951-2) 131 136-145 [facility]ererum or plasma potassium measurement (moles/volume)2020-02-01 05:08:00* Test Item Value Reference Range Interpretation Comments Potassium Level (test code = 2823-3) 4.2 3.5-5.1 [facility]ererum or plasma chloride measurement (moles/volume)2020-02-01 05:08:00* Test Item Value Reference Range Interpretation Comments Chloride Level (test code = 2075-0) 99 98-107 [facility]ererum or plasma carbon dioxide, total measurement (moles/volume)2020-02-01 05:08:00* Test Item Value Reference Range Interpretation Comments Carbon Dioxide Level (test code = 2028-9) 25 22-29 [facility] Centererum or plasma anion [id number] 05:08:00* Test Item Value Reference Range Interpretation Comments Anion Gap (test code = 37129-9) 11.2 8-16 [facility] Centererum or plasma urea nitrogen measurement (mass/volume)2020-02-01 05:08:00* Test Item Value Reference Range Interpretation Comments Blood Urea Nitrogen (test code = 3094-0) 14 7-26 [facility] Centererum or plasma creatinine measurement (mass/volume)2020-02-01 05:08:00* Test Item Value Reference Range Interpretation Comments Creatinine (test code = 2160-0) 0.56 0.57-1.11 [facility] Centererum or plasma urea nitrogen/creatinine mass [id number] 05:08:00* Test Item Value Reference Range Interpretation Comments BUN/Creatinine Ratio (test code = 3097-3) 25 6-25 [facility] McKinneyEstimated glomerular filtration rate (GFR) vnppgrljkyevr1769-64-81 05:08:00* Test Item Value Reference Range Interpretation Comments Estimat Glomerular Filtration Rate (test code = 426247083) > 60 >60 Ranges were taken from the National Kidney Disease Education Program and the [facility] literature.Reference ranges:60 or greater: Yvntxr44-57 ( for 3 consecutive months): Chronic kidney disease 15 or less: Kidney failureBaylor Scott & White Medical Center – McKinneyGlucose nmxpaveyybm2267-89-25 05:08:00* Test Item Value Reference Range Interpretation Comments Glucose Level (test code = BOR2125) 119 74-118 [facility] Centererum or plasma calcium measurement (mass/volume)2020-02-01 05:08:00* Test Item Value Reference Range Interpretation Comments Calcium Level (test code = 53981-3) 8.7 8.4-10.2 [facility] Centererum or plasma total bilirubin measurement (mass/volume)2020-02-01 05:08:00* Test Item Value Reference Range Interpretation Comments Total Bilirubin (test code = 1975-2) 0.2 0.2-1.2 [facility] – McKinneyFluoroscopic procedure less than one hour vrcsgbqy1874-02-61 05:08:00* Test Item Value Reference Range Interpretation Comments Aspartate Amino Transf (AST/SGOT) (test code = Aspartate Amino Transf (AST/SGOT)) 19 5-34 [facility] alanine aminotransferase measurement (enzymatic activity/volume)2020-02-01 05:08:00* Test Item Value Reference Range Interpretation Comments Alanine Aminotransferase (ALT/SGPT) (test code = 1742-6) 11 0-55 [facility] or plasma protein measurement (mass/volume)2020-02-01 05:08:00* Test Item Value Reference Range Interpretation Comments Total Protein (test code = 2885-2) 6.3 6.5-8.1 [facility] or plasma albumin measurement (mass/volume)2020-02-01 05:08:00* Test Item Value Reference Range Interpretation Comments Albumin (test code = 1751-7) 2.1 3.5-5.0 [facility] [place] globulin measurement (mass/volume) 2020-02-01 05:08:00* Test Item Value Reference Range Interpretation Comments Globulin (test code = 11170-9) 4.2 2.3-3.5 [facility] or plasma albumin/globulin mass nalep1715-86-38 05:08:00* Test Item Value Reference Range Interpretation Comments Albumin/Globulin Ratio (test code = 1759-0) 0.5 0.8-2.0 [facility] or plasma alkaline phosphatase measurement (enzymatic activity/volume)2020-02-01 05:08:00* Test Item Value Reference Range Interpretation Comments Alkaline Phosphatase (test code = 6768-6) 49 40-150 [facility] [place]neyManual basophil boqvitvcml8426-40-13 04:50:00* Test Item Value Reference Range Interpretation Comments Basophils % (Manual) (test code = 19405-2) 1 0-1.5 [facility] or plasma magnesium measurement (mass/volume)2020-01-30 04:50:00* Test Item Value Reference Range Interpretation Comments Magnesium Level (test code = 12557-3) 1.7 1.3-2.1 [facility] [place]neyFluoroscopic procedure less than one hour rcxjronf8531-40-17 03:10:00* Test Item Value Reference Range Interpretation [...] complexity tests.Testing performed by Clinical Pathology Labor [address] [phone] Director: Antoine Salmeron M.D.[facility] # [id number] [facility] CenterGL[facility] 2019-12-09 16:51:00* Test Item Value Reference Range Interpretation Comments GLUBED (test code = GLUBED) 135 mg/dL 74-106 H Performed by certified backhoe operator at [facility] BESYBC8621-87-59 16:51:00* Test Item Value Reference Range Interpretation Comments GLUBED (test code = GLUBED) 139 mg/dL 74-106 H Performed by certified backhoe operator at [facility] AXFFXK1735-27-01 05:48:00* Test Item Value Reference Range Interpretation Comments GLUBED (test code = GLUBED) 121 mg/dL 74-106 H Performed by certified backhoe operator at [facility] ERSMWP5811-95-00 20:11:00* Test Item Value Reference Range Interpretation Comments GLUBED (test code = GLUBED) 148 mg/dL 74-106 H Performed by certified backhoe operator at [facility] QNSGYM6050-95-43 16:54:00* Test Item Value Reference Range Interpretation Comments GLUBED (test code = GLUBED) 110 mg/dL 74-106 H Performed by certified backhoe operator at [facility] FMXQCY6641-03-74 12:09:00* Test Item Value Reference Range Interpretation Comments GLUBED (test code = GLUBED) 185 mg/dL 74-106 H Performed by certified backhoe operator at [facility] BASIC METABOLIC KTLAD4516-15-09 06:01:00* Test Item Value Reference Range Interpretation [...] code = CA) 9.6 mg/dL 8.5-10.1 N LCKPSJYHGK3785-02-67 06:01:00* Test Item Value Reference Range Interpretation Comments PHOSPHORUS (test code = PHOS) 2.6 mg/dL 2.5-4.9 N OTNZIPZCU7675-81-19 06:01:00* Test Item Value Reference Range Interpretation Comments MAGNESIUM (test code = MAG) 1.9 mg/dL 1.8-2.4 N QFMVBC2456-27-11 05:55:00* Test Item Value Reference Range Interpretation Comments GLUBED (test code = GLUBED) 121 mg/dL 74-106 H Performed by certified backhoe operator at [facility] BASIC METABOLIC DWUWE4020-71-37 05:54:00* Test Item Value Reference Range Interpretation [...] CALCIUM (test code = CA) mg/dL 8.5-10.1 AXXXMNZBPA2398-01-12 05:54:00* Test Item Value Reference Range Interpretation Comments PHOSPHORUS (test code = PHOS) mg/dL 2.5-4.9 QWUXWTFEY4101-71-35 05:54:00* Test Item Value Reference Range Interpretation Comments MAGNESIUM (test code = MAG) mg/dL 1.8-2.4 CBC W/AUTO JJJI6407-65-05 05:31:00* Test Item Value Reference Range Interpretation [...] DIFF REQUIRED (test code = MDIFF) NO HACDAD4544-72-94 20:30:00* Test Item Value Reference Range Interpretation Comments GLUBED (test code = GLUBED) 158 mg/dL 74-106 H Performed by certified backhoe operator at [facility] JPXZNJ2648-90-40 17:03:00* Test Item Value Reference Range Interpretation Comments GLUBED (test code = GLUBED) 111 mg/dL 74-106 H Performed by certified backhoe operator at [facility] DDTDGP2834-35-83 12:53:00* Test Item Value Reference Range Interpretation Comments GLUBED (test code = GLUBED) 159 mg/dL 74-106 H Performed by certified backhoe operator at [facility] KZUDLD3761-31-29 06:38:00* Test Item Value Reference Range Interpretation Comments GLUBED (test code = GLUBED) 162 mg/dL 74-106 H Performed by certified backhoe operator at [facility] YLUCZQ0537-99-43 20:49:00* Test Item Value Reference Range Interpretation Comments GLUBED (test code = GLUBED) 244 mg/dL 74-106 H Performed by certified backhoe operator at [facility] MYAHRW0800-38-93 16:05:00* Test Item Value Reference Range Interpretation Comments GLUBED (test code = GLUBED) 146 mg/dL 74-106 H Performed by certified backhoe operator at [facility] - XR FOOT 3 + V [id number] 14:03:00 FAX: Ellie Zeng [facility] [phone] [place]: B St: [facility] FAX: Arsenio Terrell MD [phone] Name: LANI LITTLE [facility] : 1945 Age/S: 74/F [address] Unit #: [id number] Loc: V.2055 JO-ANN Cl[place] [address] Phys: Ellie Mason DPM Acct: [id number] Dis Date: Status: ADM IN PHONE #: [phone] Exam Date: 12/06/2019 1344 FAX #: [phone] Reason: ISCHEMIC LEFT FOOT EXAMS: CPT CODE: [id number] XR FOOT 3 + V LT 21962 EXAM: Left foot, 3 views; INFORMATION: Peripheral [...] Sue TothGRW Orig Print D/T: S: 12/06/2019 (5410) PAGE 1 Signed Report GLUBED 2019-12-06 11:09:00* Test Item Value Reference Range Interpretation Comments GLUBED (test code = GLUBED) 178 mg/dL 74-106 H Performed by certified backhoe operator at [facility] BPOPZQ4459-08-61 06:11:00* Test Item Value Reference Range Interpretation Comments GLUBED (test code = GLUBED) 141 mg/dL 74-106 H Performed by certified backhoe operator at [facility] QNSPDI0435-54-99 19:45:00* Test Item Value Reference Range Interpretation Comments GLUBED (test code = GLUBED) 192 mg/dL 74-106 H Performed by certified backhoe operator at [facility] EMBYYM3678-07-91 17:09:00* Test Item Value Reference Range Interpretation Comments GLUBED (test code = GLUBED) 124 mg/dL 74-106 H Performed by certified backhoe operator at [facility] JNRFOM9753-44-12 11:52:00* Test Item Value Reference Range Interpretation Comments GLUBED (test code = GLUBED) 160 mg/dL 74-106 H Performed by certified backhoe operator at [facility] DTXYZR3271-46-25 05:06:00* Test Item Value Reference Range Interpretation Comments GLUBED (test code = GLUBED) 161 mg/dL 74-106 H Performed by certified backhoe operator at [facility] QTXEUL4610-21-53 20:30:00* Test Item Value Reference Range Interpretation Comments GLUBED (test code = GLUBED) 160 mg/dL 74-106 H Performed by certified backhoe operator at [facility] SHIMJC0889-82-45 17:50:00* Test Item Value Reference Range Interpretation Comments GLUBED (test code = GLUBED) 128 mg/dL 74-106 H Performed by certified backhoe operator at [facility] VJPWEC8853-78-25 13:14:00* Test Item Value Reference Range Interpretation Comments GLUBED (test code = GLUBED) 123 mg/dL 74-106 H Performed by certified backhoe operator at [facility] LIPID PROFILE (CORONARY RISK)2019-12-04 11:07:00* Test Item [...] This LDL result is a direct measurement.========= CWCV7L3903-72-70 10:44:00* Test Item Value Reference Range Interpretation Comments GLYCOSYLATED HEMOGLOBIN (HA1C) (test code = GLYHGB) 5.4 % HbA1 SUGGESTED DIAGNOSIS: HbA1C (%) Diabetic >6.4Prediabetes 5.7 - 6.4Normal <5.7 ESTIMATED AVERAGE GLUCOSE (test code = EAG) 108 MG/DL LKBIVF5757-21-04 05:39:00* Test Item Value Reference Range Interpretation Comments GLUBED (test code = GLUBED) 101 mg/dL 74-106 N Performed by certified backhoe operator at [facility] DJDGII7756-51-58 21:05:00* Test Item Value Reference Range Interpretation Comments GLUBED (test code = GLUBED) 122 mg/dL 74-106 H Performed by certified backhoe operator at [facility] - CTA ABD AORTA IF LWEX HH4559-04-15 17:47:00 Name: LANI LITTLE [facility] : 1945 Age/S: 74 / F [address] [facility] Unit #: [id number] Loc: JO-ANN Claudio [address] Phys: Gina Hdez DO Acct: [id number] Dis Date: Status: ADM IN PHONE #: [phone] Exam Date: 12/03/2019 1544 FAX #: [phone] Reason: occlusion EXAMS: CPT CODE: [id number] [place] [address] EXAM: CT angiography of the abdominal aorta, [...] of the proximal right anterior tibial ar chelo. Otherwise, the infrapopliteal vessels are perfused and there is enhancement of a dorsalis pedis and plantar pedis artery. Left l eg: The left common femoral and profunda femoris arteries are brunson nt. The left SFA shows a 40% stenosis proximally. It shows extensive calcified plaques and there is a 60% stenosis in the region of the adduct or canal. 80% stenosis of the left popliteal artery. 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 Location code: [facility] at 1747 Reported and signed by: Gustavo Cruz M.D. CC: Gina Hdez DO Technologist:Diane Mijares RT(R); WILVER Sam CTDI: DLP: Trnscb Date/Time: 12/03/2019 (174) Maurisio Orig Print D/T: S: 12/03/2019 (4991) PAGE 2 Signed Report BASIC METABOLIC [id number] 14:24:00* Test Item Value Reference Range Interpretation [...] CA) 9.7 mg/dL 8.5-10.1 N BASIC METABOLIC UMGWB1780-53-97 14:16:00* Test Item Value Reference Range Interpretation [...] (test code = CA) mg/dL 8.5-10.1 PROTHROMBIN HUNA4894-14-05 14:02:00* Test Item Value Reference Range Interpretation [...] (2.5-3.5) IS PATIENT ON ANTICOAGULANTS? NTHROMBOPLASTIN TIME RZIUZLI9721-85-33 14:02:00* Test Item Value Reference Range Interpretation Comments THROMBOPLASTIN TIME PARTIAL (test code = PTT) 39.1 seconds 23.0-37. 0 H IS PATIENT ON ANTICOAGULANTS? NCBC W/O [id number] 13:52:00* Test Item Value Reference Range Interpretation [...] = MPV) 8.7 fL 6.7-11.0 N POC snzacif5734-81-09 11:18:50* Test Item Value Reference Range Interpretation Comments POC glucose (test code = 15919-7) 208 mg/dL 65-99 H Crane Chaser Name: Keaton Cortezice ID: [id number]: [facility] Notified lime [employer] worker helper Interpretation (test code = 93118-9) Abnormal [place] MethodistBasic metabolic cbtas1657-57-47 05:57:31* Test Item Value Reference Range Interpretation Comments Sodium (test code = 2951-2) 134 135- 148 mEq/L L Potassium (test code = 2823-3) 4.0 3.5- 5.0 mEq/L Chloride (test code = 5-0) 99 98- 112 mEq/L CO2 (test code = 2027-9) 22 24- 31 mEq/L L Anion gap (test code = 99219-4) 13@ANIO 7- 15 mEq/L BUN (test code = 3094-0) 14 mg/dL 8-23 Creatinine (test code = 2160-0) 0.51 mg/dL 0.5-0.9 Glucose (test code = 2345-7) 145 mg/dL 65-99 H Calcium (test code = 82244-9) 9.9 mg/dL 8.8-10.2 Lab Interpretation (test code = 31347-3) Abnormal [place] MethodistEstimated [id number] 05:57:31* Test Item Value Reference Range Interpretation Comments Estimated GFR (test code = 5488) >=90 mL/min/1.73 m2 Catergory Units InterpretationG1 >=90 Normal or highG2 60-89 Mildly wlfphjwsvJ6u 45-59 Mildly to moderately ueevcrwdtY0w 30-44 Moderately to severely decreasedG4 15-29 Severely decreasedG5 <15 Kidney failureThe eGFR was calculated using the Chronic Kidney Disease Epidemiology Collaboration (CKD-EPI) equation. Interpretation is based on recommendations of the National Kidney Foundation-Kidney Disease Outcomes Quality Initiative (NKF-KDOQI) published in 2014. [place] MethodistCBC with platelet and fpgsgtuusaob8768-25-63 05:40:49* Test Item Value Reference Range Interpretation Comments WBC (test code = 73430-5) 5.65 4.50- 11.00 k/uL RBC (test code = 32084-9) 2.50 m/uL 4.2-5.5 L HGB (test code = 718-7) 7.5 g/dL 12-16 L HCT (test code = 4544-3) 23.4 % 37-47 L MCV (test code = 787-2) 93.6 fL 82-100 MCH (test code = 785-6) 30.0 pg 27-34 MCHC (test code = 786-4) 32.1 g/dL 31-37 RDW - SD (test code = 20793-8) 46.9 fL 37-55 MPV (test code = 71228-3) 8.9 fL 8.8-13.2 Platelet count (test code = 41390-3) 380 150- 400 k/uL Nucleated RBC (test code = 77808-7) 0.00 /100 WBC Neutrophils (test code = 65368-4) 59.9 % 39-69 Lymphocytes (test code = 17526-5) 25.3 % 25-45 Monocytes (test code = 00514-0) 10.4 % 0-10 H Eosinophils (test code = 94648-4) 3.7 % 0-5 Basophils (test code = 86049-5) 0.5 % 0-1 Immature granulocytes (test code = 62961-8) 0.2 % 0-1 "Immature granulocytes" (promyelocytes, myelocytes, metamyelocytes) Lab Interpretation (test code = 24858-3) Abnormal [place] MethodistMagnesium rslfj8797-79-91 05:17:22* Test Item Value Reference Range Interpretation Comments Magnesium (test code = 15655-8) 1.7 mg/dL 1.6-2.4 [place] MethodistPhosphorus ytylz2432-42-10 05:17:19* Test Item Value Reference Range Interpretation Comments Phosphorus (test code = 2777-1) 2.3 mg/dL 2.4-4.5 L Lab Interpretation (test code = 65184-9) Abnormal [place] MethodistIonized lakosag4547-52-14 05:07:50* Test Item Value Reference Range Interpretation Comments pH (test code = 2753-2) 7.54 Ionized calcium (test code = 1994-0) 1.14 mmol/L 1.11-1.32 [place] MethodistPartial thromboplastin time, kupwpphqc5177-70-18 04:56:44* Test Item Value Reference Range Interpretation Comments PTT (test code = 48660-9) 44.0 23.0- 36.0 sec H PTT therapeutic range for unfractionated heparin is61.0-112.0 seconds which corresponds to Anti-Xa0.3-0.7 U/ml. Lab Interpretation (test code = 85318-6) Abnormal Chandra MethodistECG 12 efpu3103-40-60 18:04:59* Test Item Value Reference Range Interpretation Comments Ventricular rate (test code = 253) 82 Atrial rate (test code = 255) 82 MT interval (test code = 266) 172 QRSD [...] wave abnormality now evident in Anterior leads- Prateek MethodistXR Chest 1 Vw Sdpnkxjp9012-21-97 06:18:04Hm Interface, Radiology Results - 11/19/2019 6:21 AM CDTEXAMINATION: XR CHEST 1 VW PORTABLECLINICAL HISTORY: ICU pt stable with no clinical status changesIMPRESSION:Follow-up exam demonstrates no interval change, and no new inf iltrate.[facility]-0XX3466NYHToqxgwj MethodistProthrombin time with SAC5768-37-81 01:11:04* Test Item Value Reference Range Interpretation Comments Prothrombin time (test code = 5902-2) 15.1 11.5- 14.5 sec H INR (test code = 21393-2) 1.2 Th e International Normalized Ratio (INR) is a therapeutic monitoring tool for patients who are stable on oral anticoagulant therapy. An INR of 2.0-3.0 is suggested for deep vein thrombosis/pulmonary embolism. Lab Interpretation (test code = 36565-9) Abnormal [place] MethodistAnti Xa, kmqftefoetovge9697-99-19 15:15:40* Test Item Value Reference Range Interpretation Comments Anti Xa, unfractionated (test code = 3274-8) <0.10 0.3-0.7 L Therapeutic Range: 0.30 - 0.70 U/mL Lab Interpretation (test code = 91519-1) Abnormal [place] OspwfyixgKsecaezqyo0681-30-62 14:50:50* Test Item Value Reference Range Interpretation Comments Fibrinogen (test code = 46470-2) 362 mg/dL 200-450 [facility]istCBC fehwptre3422-07-11 14:31:28* Test Item Value Reference Range Interpretation Comments WBC (test code = 79234-5) 4.23 4.50- 11.00 k/uL L RBC (test code = 26382-7) 2.95 m/uL 4.2-5.5 L HGB (test code = 718-7) 9.0 g/dL 12-16 L HCT (test code = 4544-3) 26.2 % 37-47 L MCV (test code = 787-2) 88.8 fL 82-100 MCH (test code = 785-6) 30.5 pg 27-34 MCHC (test code = 786-4) 34.4 g/dL 31-37 RDW - SD (test code = 82492-2) 43.9 fL 37-55 MPV (test code = 45490-7) 8.6 fL 8.8-13.2 L Platelet count (test code = 88527-4) 288 150- 400 k/uL Nucleated RBC (test code = 69696-7) 0.00 /100 WBC Lab Interpretation (test code = 86897-7) Abnormal [place] MethodistArterial blood awm3016-50-95 14:30:24* Test Item Value Reference Range Interpretation [...] % 95-100 Lab Interpretation (test code = 77546-1) Abnormal [place] MethodistIonized calcium, fjqdrbyn8474-63-51 14:30:24* Test Item Value Reference Range Interpretation Comments Ionized calcium, arterial (test code = 32318-0) 1.09 mmol/L 1.11-1 .32 L Lab Interpretation (test code = 31074-9) Abnormal [place] MethodistPrepare FTE9781-88-49 14:05:00* Test Item Value Reference Range Interpretation Comments Product name (test code = 25) Red Blood Cells -1, Leukored Unit number (test code = 5278722) [id number] Product code (test code = 3092) [id number] Dispense status (test code = 24) Returned to not transfused Blood expiration date (test code = 302) [id number] Blood type code (test code = 308) 6200 Blood type (test code = 1314) A POSITIVE Compatibility (test code = 6400) Compatible [place] MethodistActivated clotting dfpy7913-92-38 13:37:14* Test Item Value Reference Range Interpretation Comments Activated clotting time (test code = 5298) 113 96- 152 sec Crane Chaser Name: Ignacio Mckenzie ID: [id number] [place] MethodistArterial blood gas, coiyvmvaq6451-66-47 11:09:24* Test Item Value Reference Range Interpretation [...] 95-100 pH, arterial corrected (test code = 36781-4) 7.51 pCO2, arterial corrected (test code = 39335-0) 29 mmHg pO2, arterial corrected (test code = 89672-4) 343 mmHg Base excess, arterial (test code = 1925-7) 1 -2 - 2 mEq- L Lab Interpretation (test code = 05533-2) Abnormal Chandra MethodistGlucose level, loxuzvz3386-62-09 11:09:24* Test Item Value Reference Range Interpretation Comments Glucose, syringe (test code = 2345-7) 161 mg/dL 65-99 H Lab Interpretation (test code = 65424-9) Abnormal Chandra MethodistHemoglobin, qprmtdu4905-64-68 11:09:24* Test Item Value Reference Range Interpretation Comments Hemoglobin, syringe (test code = 718-7) 9.4 g/dL 12-16 L Lab Interpretation (test code = 91019-0) Abnormal Chnadra MethodistPotassium, yjohwsp0935-71-24 11:09:24* Test Item Value Reference Range Interpretation Comments Potassium, syringe (test code = 2007) 3.8 3.5- 5.0 mEq/L Chandra MethodistSodium level, vlibjzk7387-06-76 11:09:24* Test Item Value Reference Range Interpretation Comments Sodium, syringe (test code = 2947-0) 138 135- 148 mEq/L Chandra MethodistArterial ldfr4998-84-66 08:48:33FontRolan gibson CRNA 11/18/2019 8:48 AMArterial linePerformed by: Rolan Sheriff CRNAAuthorized by: Rei Valadez MD Patient Location: [facility] Time: 11/18/2019 8:33 AMStaff: Anesthesiologist: Rei Valadez MD Resident/PUZZLE ASSEMBLER/AA: Rolan Sheriff CRNA Performed by: Resident/ ANISHA/AAPre-procedure: patient identified, IV checked, site and side [...] th e procedure well with no immediate complicationsNor[facility] MethodistAirsouth [facility] 2019-11-18 08:48:02FoRolan caldera CRNA 11/18/2019 8:48 AMAirwayDate/Time: 11/18/2019 8:24 AMPerformed by: Rolan Sheriff CRNAAuthorized by: Rei Valadez MD Location: ORUrgency: ElectiveDifficult Airway: No Anesthesiologist: Rei Valadez, OUSMANEesimarciat/PUZZLE ASSEMBLER/AA: Rolan Sheriff CRNAPerformed by: resident/PUZZLE ASSEMBLER/AAPreoxygenated with 100% O2: Yes C-spine Precautions Maintained [...] & gums unchanged from preop.Prateek Moran Pre/Post Tx1375-41-06 21:21:42* Test Item Value Reference Range Interpretation Comments Ventricular rate (test code = 253) 85 Atrial rate (test code = 255) 85 MT interval (test code = 266) 154 QRSD [...] ECG-No previous ECGs available- Prateek PatriciaVID-19 qualitative RVK0092-36-17 08:27:12* Test Item Value Reference Range Interpretation Comments Interpretation (test code = 8793636) Negative results do not preclude 2019-nCoV infection and should not be used as the sole basis for treatment or other patient management decisions. Negative results must be combined with clinical observations, patient history, and epidemiological information. COVID-19 qualitative PCR result (test code = 15415-0) Not-Detect ed Not-Detected COVID-19 qualitative PCR (test code = 7070) See link below for P DF Lab Report [place] MethodistType and lcmjvl0045-44-13 20:27:00* Test Item Value Reference Range Interpretation Comments ABO grouping (test code = 883-9) A Rh type (test code = 67315-6) POS Antibody screen (gel) (test code = 890-4) NEG [place] MethodistHemoglobin G8d7997-43-18 19:39:10* Test Item Value Reference Range Interpretation Comments Hemoglobin A1C (test code = 08543-3) 6.6 % 4-5.6 H HbA1c cutoffs for diagnosing diabetes:4.0% - 5.6% = normal5.7% - 6.4% = increased risk for diabetes (prediabetes)9>=6.5% = okjywvsp4Sbfcv for glycemic control (ADA 2016)< 7.0% Target for non adults with diabetes. More or less stringent targets may be appropriate for individual patients. <7.5% Target for Children and adolescents with type 1 diabetes. Lab Interpretation (test code = 12925-4) Abnormal [place] MethodistXR Chest 2 Tl6805-32-45 18:58:35Hm Interface, Radiology Results - 11/13/2019 7:01 [...] cardiopulmonary process or active disease of the chest.ST-6QL3959NHYXmqsfqr MethodistCT ABDOMEN/PELVIS M7452-93-70 16:37:00 [facility] [address] [address] Patient Name: LANI LITTLE MR #: [id number] : 1945 Age/Sex: 73/F Req #: [id number] Adm Physician: Ordered by: SHANTHI GRAY MD Report #: [id number] Location: ER Room/Bed: Procedure: [id number] CT /CT ABDOMEN/PELVIS W Exam Date: 08/15/18 Exam Time: 1520 REPORT STATUS: Signed EXAMI NATION: CT of the chest, abdomen and pelvis with contrast. TECHNIQUE: [facility] CT images of the chest, abdomen [...] MPRESSION: No acute CT finding. Signed by: Dr. Ameena Agurire M.D. o nilay 08/15/2018 4:38 PM Dictated By: AMEENA AGUIRRE MD Electronically Nely d By: AMEENA AGUIRRE MD on 08/15/181637 Transcribed By: JILLIAN on 08/15/181637 COPY TO: SHANTHI GRAY MD CT MAXIO FAC/LUKE OR3755-79-50 16:28:00 [address] [place] [address] Patient Name: LANI LITTLE MR #: [id number] : 1945 Age/Sex: 73/F Req #: [id number] Adm Physician: Ordered by: SHANTHI GRAY MD Report #: [id number] Location: ER Room/Bed: Procedure: [id number] CT /CT MAXIO FAC/PARANAS WO Exam Date: [...] IMPRESSION: No fracture. Sig ulises by: Dr. oDnna Robledo M.D. on 08/15/2018 4:30 PM Dictated By: RICHARDSON ADAMS MD 1630 Transcribed By: JILLIAN on 08/15/18 1630 COPY TO: SHANTHI GRAY MD CT BRAIN NO3027-25-28 16:23:00 [address] [place] [address] Patient Name: LANI LITTLE MR #: [id number] : 1945 Age/Sex: 73/F Req #: [id number] Adm Physician: Ordered by: SHANTHI GRAY MD Report #: [id number] Location: ER Room/Bed: Procedure: [id number] CT /CT BRAIN WO Exam Date: 08/15/18 [...] ADAMS MD 26 Transcribed By: JILLIAN on 08/15/18 1627 CO PY TO: SHANTHI GRAY MD CT CHEST D0353-90-43 16:04:00 [address] [place] [address] Patient Name: LANI LITTLE MR #: [id number] : 1945 Age/Sex: 73/F Req #: [id number] Adm Physician: Ordered by: SHANTHI GRAY MD Report #: [id number] Location: ER Room/Bed: Procedure: [id number] CT /CT CHEST W Exam Date: 08/15/18 [...] 4:15 PM Dictated By: AMEENA AGUIRRE MD [id number] Transcribed By: JILLIAN on 08/15/18 4315 COPY TO: SHANTHI GRAY MD Urine [id number] 14:39:00* Test Item Value Reference Range Interpretation Comments Urine WBC (test code = 5821-4) 0-5 0-5 [facility] [id number] 14:39:00* Test Item Value Reference Range Interpretation Comments Urine RBC (test code = 71383-3) NONE 0-5 [facility]neyUrine Uzlnqtaz7058-34-28 14:39:00* Test Item Value Reference Range Interpretation Comments Urine Bacteria (test code = 11161-1) FEW NONE [facility]neyUrine Epithelial Okwoc5021-96-11 14:39:00 * Test Item Value Reference Range Interpretation Comments Urine Epithelial Cells (test code = 41886-8) FEW NONE [facility]neyUrine Hyaline Cqcib7488-72-74 14:39:00* Test Item Value Reference Range Interpretation Comments Urine Hyaline Casts (test code = 19611-5) 0-1 0-1 [facility] Huyvd8939-94-58 14:39:00* Test Item Value Reference Range Interpretation Comments Sodium Level (test code = 2951-2) 136 136-145 [facility]neyPotassium Akslf7802-90-30 14:39:00* Test Item Value Reference Range Interpretation Comments Potassium Level (test code = 2823-3) 3.8 3.5-5.1 [facility] McKinneyChloride Pbanw7211-73-66 14:39:00* Test Item Value Reference Range Interpretation Comments Chloride Level (test code = 2075-0) 102 98-107 [facility] McKinneyCarbon Dioxide Ugxac3795-40-14 14:39:00* Test Item Value Reference Range Interpretation Comments Carbon Dioxide Level (test code = 2028-9) 25 22-29 [facility] McKinneyAnion [id number] 14:39:00* Test Item Value Reference Range Interpretation Comments Anion Gap (test code = 94663-7) 12.8 8-16 [facility] McKinneyBlood Urea Wxyiqcvl7746-85-68 14:39:00* Test Item Value Reference Range Interpretation Comments Blood Urea Nitrogen (test code = 3094-0) 15 7-26 [facility] McKinneyCreatinine2019-02-01 14:39:00* Test Item Value Reference Range Interpretation Comments Creatinine (test code = 2160-0) 0.77 0.57-1.11 [facility]neyBUN/Creatinine Picqb7003-92-47 14:39:00* Test Item Value Reference Range Interpretation Comments BUN/Creatinine Ratio (test code = 3097-3) 19 6-25 [facility] McKinneyEstimat Glomerular Filtration Rate 2018-08-15 14:39:00* Test Item Value Reference Range Interpretation Comments Estimat Glomerular Filtration Rate (test code = 356028285) > 60 >60 Ranges were taken from the National Kidney Disease Education Program and the [facility] Hospital[facility] Kidney Foundation literature.Reference ranges:60 or greater: Vvxrzt04-76 ( for 3 consecutive months): Chronic kidney disease 15 or less: Kidney failureCHI The Hospital At Westlake Medical CenterGlucose Tsoig5792-08-46 14:39:00* Test Item Value Reference Range Interpretation Comments Glucose Level (test code = UDJ8423) 218 74-118 H [facility] McKinneyCalcium Tgjfq3406-25-59 14:39:00* Test Item Value Reference Range Interpretation Comments Calcium Level (test code = 20585-1) 9.8 8.4-10.2 [facility] McKinneyMagnesium Kzptr3312-80-84 14:39:00* Test Item Value Reference Range Interpretation Comments Magnesium Level (test code = 50325-4) 1.8 1.3-2.1 [facility] McKinneyTotal Cpylyprin3456-47-39 14:39:00* Test Item Value Reference Range Interpretation Comments Total Bilirubin (test code = 1975-2) 0.6 0.2-1.2 [facility] McKinneyAspartate Amino Transf (AST/SGOT) 2018-08-15 14:39:00* Test Item Value Reference Range Interpretation Comments Aspartate Amino Transf (AST/SGOT) (test code = Aspartate Amino Transf (AST/SGOT)) 85 5-34 H [facility] McKinneyAlanine Aminotransferase (ALT/SGPT) 2018-08-15 14:39:00* Test Item Value Reference Range Interpretation Comments Alanine Aminotransferase (ALT/SGPT) (test code = 1742-6) 69 0-55 H [facility] McKinneyTotal Amigsqu2553-92-20 14:39:00* Test Item Value Reference Range Interpretation Comments Total Protein (test code = 2885-2) 7.0 6.5-8.1 [facility] McKinneyAlbumin2019-02-01 14:39:00* Test Item Value Reference Range Interpretation Comments Albumin (test code = 1751-7) 3.7 3.5-5.0 [facility] McKinneyGlobulin2019-02-01 14:39:00* Test Item Value Reference Range Interpretation Comments Globulin (test code = 25850-8) 3.3 2.3-3.5 [facility] McKinneyAlbumin/Globulin Mbjpg1418-90-05 14:39:00 * Test Item Value Reference Range Interpretation Comments Albumin/Globulin Ratio (test code = 1759-0) 1.1 0.8-2.0 [facility] McKinneyAlkaline Iuzogfqpujw2980-44-86 14:39:00* Test Item Value Reference Range Interpretation Comments Alkaline Phosphatase (test code = 6768-6) 49 40-150 [facility] McKinneyAmylase Jlyeb2207-75-57 14:39:00* Test Item Value Reference Range Interpretation Comments Amylase Level (test code = 1798-8) 90 25-125 [facility] McKinneyLipase2019-02-01 14:39:00* Test Item Value Reference Range Interpretation Comments Lipase (test code = 3040-3) 56 8-78 [facility] McKinneyUrine Yqhat6435-13-09 14:26:00* Test Item Value Reference Range Interpretation Comments Urine Color (test code = 5778-6) YELLOW YELLOW [facility] McKinneyUrine Meenhcw8326-52-78 14:26:00* Test Item Value Reference Range Interpretation Comments Urine Clarity (test code = 56374-1) SL CLOUDY CLEAR [facility] McKinneyUrine Specific Fweheye9628-98-89 14:26:00 * Test Item Value Reference Range Interpretation Comments Urine Specific [place] (test code = 5811-5) 1.020 1.010-1.02 5 [facility] McKinneyUrine hM2444-11-47 14:26:00* Test Item Value Reference Range Interpretation Comments Urine pH (test code = 25770-7) 6 5-7 [facility]neyUrine Leukocyte Jnrfmelu2867-60-04 14:26:00* Test Item Value Reference Range Interpretation Comments Urine Leukocyte Esterase (test code = 5799-2) TRACE NEGATIVE H [facility] McKinneyUrine Zoohtvu3611-52-94 14:26:00* Test Item Value Reference Range Interpretation Comments Urine Nitrite (test code = 31025-5) NEGATIVE NEGATIVE [facility] Fiqqfid2204-01-03 14:26:00* Test Item Value Reference Range Interpretation Comments Urine Protein (test code = 5804-0) 1+ NEGATIVE H [facility] McKinneyUrine Glucose (UA)2018-08-15 14:26:00* Test Item Value Reference Range Interpretation Comments Urine Glucose (UA) (test code = 2349-9) 2+ NEGATIVE H [facility] McKinneyUrine Kuaiwmc7354-97-20 14:26:00* Test Item Value Reference Range Interpretation Comments Urine Ketones (test code = 46427-1) NEGATIVE NEGATIVE [facility] Fxpmddutjexd0894-94-74 14:26:00* Test Item Value Reference Range Interpretation Comments Urine Urobilinogen (test code = 25868-0) 0.2 0.2-1 [facility] McKinneyUrine Ovrmyfmqs1762-88-65 14:26:00* Test Item Value Reference Range Interpretation Comments Urine Bilirubin (test code = 1978-6) NEGATIVE NEGATIVE [facility] McKinneyUrine Ojnhk7026-58-71 14:26:00* Test Item Value Reference Range Interpretation Comments Urine Blood (test code = 87171-9) NEGATIVE NEGATIVE [facility] McKinneyProthrombin Hxod7804-19-58 14:25:00* Test Item Value Reference Range Interpretation Comments Prothrombin Time (test code = 5902-2) 13.0 11.9-14.5 [facility] McKinneyProthromb Time International Ratio 2018-08-15 14:25:00* Test Item Value Reference Range Interpretation Comments Prothromb Time International Ratio (test code = 6301-6) 0.90 Oral Anticoagulant Therapy INR Values:1. Low Intensity Therapy 1.5 - 2.02 . Moderate Intensity Therapy 2.0 - 3.03. High Intensity Therapy(1) 2.5 - 3. 54. High Intensity Therapy(2) 3.0 - 4.05. Panic Value INR > 5.0 [facility] McKinneyActivated Partial Thromboplast Time 2018-08-15 14:25:00* Test Item Value Reference Range Interpretation Comments Activated Partial Thromboplast Time (test code = 50035-0) 24.6 23.8-35.5 [facility] McKinneyWhite Blood Wnvya2767-95-72 14:23:00* Test Item Value Reference Range Interpretation Comments White Blood Count (test code = 6690-2) 9.89 4.8-10.8 [facility] McKinneyRed Blood Jditr0554-83-16 14:23:00* Test Item Value Reference Range Interpretation Comments Red Blood Count (test code = 789-8) 3.88 3.6-5.1 [facility] McKinneyHemoglobin2019-02-01 14:23:00* Test Item Value Reference Range Interpretation Comments Hemoglobin (test code = 45657-8) 12.1 12.0-16.0 [facility] McKinneyHematocrit2019-02-01 14:23:00* Test Item Value Reference Range Interpretation Comments Hematocrit (test code = 4544-3) 35.0 34.2-44.1 [facility] McKinneyMean Corpuscular Kzzayh9730-98-03 14:23:00* Test Item Value Reference Range Interpretation Comments Mean Corpuscular Volume (test code = 787-2) 90.2 81-99 [facility] McKinneyMean Corpuscular Cefvlvbwdm6259-72-89 14:23:00* Test Item Value Reference Range Interpretation Comments Mean Corpuscular Hemoglobin (test code = 785-6) 31.2 28-32 [facility] McKinneyMean Corpuscular Hemoglobin Concent 2018-08-15 14:23:00* Test Item Value Reference Range Interpretation Comments Mean Corpuscular Hemoglobin Concent (test code = 786-4) 34.6 31-35 [facility] McKinneyRed Cell Distribution Qtqqj1008-65-26 14:23:00* Test Item Value Reference Range Interpretation Comments Red Cell Distribution Width (test code = 10791-7) 13.2 11.7 -14.4 [facility] McKinneyPlatelet Binzd8709-68-46 14:23:00* Test Item Value Reference Range Interpretation Comments Platelet Count (test code = 777-3) 351 140-360 [facility] McKinneyNeutrophils (%) (Auto)2018-08-15 14:23:00 * Test Item Value Reference Range Interpretation Comments Neutrophils (%) (Auto) (test code = 06712-8) 79.4 38.7-80.0 [facility] McKinneyLymphocytes (%) (Auto)2018-08-15 14:23:00 * Test Item Value Reference Range Interpretation Comments Lymphocytes (%) (Auto) (test code = 736-9) 10.6 18.0-39.1 L [facility] McKinneyMonocytes (%) (Auto)2018-08-15 14:23:00* Test Item Value Reference Range Interpretation Comments Monocytes (%) (Auto) (test code = 5905-5) 7.5 4.4-11.3 [facility] McKinneyEosinophils (%) (Auto)2018-08-15 14:23:00 * Test Item Value Reference Range Interpretation Comments Eosinophils (%) (Auto) (test code = 713-8) 0.9 0.0-6.0 [facility] McKinneyBasophils (%) (Auto)2018-08-15 14:23:00* Test Item Value Reference Range Interpretation Comments Basophils (%) (Auto) (test code = 706-2) 0.4 0.0-1.0 [facility] McKinneyIM GRANULOCYTES %2018-08-15 14:23:00* Test Item Value Reference Range Interpretation Comments IM GRANULOCYTES % (test code = IM GRANULOCYTES %) 1.2 0.0- 1.0 H [facility] McKinneyNeutrophils # (Auto)2018-08-15 14:23:00* Test Item Value Reference Range Interpretation Comments Neutrophils # (Auto) (test code = 751-8) 7.9 2.1-6.9 H [facility] McKinneyLymphocytes # (Auto)2018-08-15 14:23:00* Test Item Value Reference Range Interpretation Comments Lymphocytes # (Auto) (test code = 74626-9) 1.1 1.0-3.2 [facility] McKinneyMonocytes # (Auto)2018-08-15 14:23:00* Test Item Value Reference Range Interpretation Comments Monocytes # (Auto) (test code = 742-7) 0.7 0.2-0.8 [facility] McKinneyEosinophils # (Auto)2018-08-15 14:23:00* Test Item Value Reference Range Interpretation Comments Eosinophils # (Auto) (test code = 711-2) 0.1 0.0-0.4 [facility] McKinneyBasophils # (Auto)2018-08-15 14:23:00* Test Item Value Reference Range Interpretation Comments Basophils # (Auto) (test code = 704-7) 0.0 0.0-0.1 [facility] McKinneyAbsolute Immature Granulocyte (auto 2018-08-15 14:23:00* Test Item Value Reference Range Interpretation Comments Absolute Immature Granulocyte (auto (hetal t code = Absolute Immature Granulocyte (auto) 0.12 0-0.1 H [facility]
[2020-02-12] MEDS ORDERED: PANTOPRAZOLE SOD 40 MG TABEC PO SCH (21:45)
[2020-02-12] MEDS ORDERED: CEFTRIAXONE SOD 1 GM/NS 50 ML 50 ML IV SCH (22:00)
[2020-02-12] MEDS ORDERED: SODIUM CHLORIDE 0.9% 250ML 250 ML ONE (22:00)
[2020-02-12 22:28] LABS: BASOPHILS % 0.2 % (0.0-1.0); EOSINOPHILS # (AUTO) 0.3 (0.0-0.4); EOSINOPHILS % 7.3 % (0.0-6.0); LYMPHOCYTES # (AUTO) 1.1 (1.0-3.2); LYMPHOCYTES % 25.8 % (18.0-39.1); MEAN CORPUSCULAR HEMOGLOBIN 27.8 pg (28-32); MEAN CORPUSCULAR HGB CONC 31.9 g/dL (31-35); MEAN CORPUSCULAR VOLUME 87.2 fL (81-99); MONOCYTES # (AUTO) 0.4 (0.2-0.8); NEUTROPHILS # (AUTO) 2.5 (2.1-6.9); NEUTROPHILS % 56.5 % (38.7-80.0); PLATELET COUNT 609 x10e3/uL (140-360); RED BLOOD COUNT 2.34 x10e6/uL (3.6-5.1); RED CELL DISTRIBUTION WIDTH 14.4 % (11.7-14.4)
[2020-02-12 22:41] LABS: ALANINE AMINOTRANSFERASE 9 IU/L (0-55); ALBUMIN 1.9 g/dL (3.5-5.0); ALBUMIN/GLOBULIN RATIO 0.4 (0.8-2.0); ALKALINE PHOSPHATASE 69 IU/L (40-150); ANION GAP 12.8 mmol/L (8-16); BLOOD UREA NITROGEN 6 mg/dL (7-26); BUN/CREATININE RATIO 12 (6-25); CALCIUM 8.5 mg/dL (8.4-10.2); CARBON DIOXIDE 25 mmol/L (22-29); CHLORIDE 103 mmol/L (98-107); CREATININE, SERUM 0.51 mg/dL (0.57-1.11); EST GLOMERULAR FILTRATION RATE > 60 ML/MIN (60-); GLUCOSE 100 mg/dL (74-118); POTASSIUM 3.8 mmol/L (3.5-5.1); SODIUM 137 mmol/L (136-145)
[2020-02-12 22:47] LABS: HEMATOCRIT 20.4 % (34.2-44.1); HEMOGLOBIN 6.5 g/dL (12.0-16.0)
--- NOTE | 2020-02-12 23:11 | NUR ---
CALLED MD NOEL. LEFT MESSAGE REGARDING CRITICAL LABS. AWAITING CALL BACK.
--- NOTE | 2020-02-12 23:38 | NUR ---
NOTIFIED BY MD NOEL OF NEW ORDERS.
[2020-02-12] MEDS ORDERED: SODIUM CHLORIDE 0.9% 250ML 250 ML IV ONE (23:45)
[2020-02-13] VITALS (13 sets, daily range): BP systolic 115–166; BP diastolic 54–92
[2020-02-13] MEDS ORDERED: HUMALOG100 UNIT/1 (01:07)
[2020-02-13] MEDS ORDERED: DOCUSATE SODIU100 MG PO (01:07)
[2020-02-13] MEDS ORDERED: ONDANSETRON2 MG/1 ML PO (01:07)
[2020-02-13] MEDS ORDERED: COMBIVENT RESPIM4 GM IH (01:07)
[2020-02-13] MEDS ORDERED: ELIQUIS2.5 MG PO (01:07)
[2020-02-13] MEDS ORDERED: ASCORBIC ACID500 MG PO (01:07)
[2020-02-13] MEDS ORDERED: FOLIC ACID PO (01:07)
[2020-02-13] MEDS ORDERED: GABAPENTIN100 MG (01:07)
[2020-02-13] MEDS ORDERED: PSYLLIUM PO (01:07)
[2020-02-13] MEDS ORDERED: TRAMADOL HCL100 MG PO (01:07)
[2020-02-13] MEDS ORDERED: CEFTRIAXONE1 GM IV (01:07)
[2020-02-13] MEDS ORDERED: CALCIUM VITAMIN D PO (01:07)
[2020-02-13] MEDS ORDERED: ZINC PO (01:07)
[2020-02-13] MEDS ORDERED: LIPITOR20 MG PO (01:07)
[2020-02-13] MEDS ORDERED: PROTONIX PO (01:07)
[2020-02-13] MEDS ORDERED: POLYETHYLENE GL17 GM PO (01:07)
[2020-02-13] MEDS ORDERED: CLOPIDOGREL75 MG PO (01:07)
[2020-02-13] MEDS ORDERED: ASPIRIN EC81 MG PO (01:07)
--- NOTE | 2020-02-13 01:40 | NUR ---
IV STARTED TO RIGHT UPPER ARM. BLOOD RETURN AND SALINE FLUSH. CDI DRESSING APPLIED.
--- NOTE | 2020-02-13 03:55 | NUR ---
CDI ALLEYVN DRESSING APPLIED Addendum: 02/13/20 at 0356 by Anju Arevalo RN PLEASE INCLUDE DRESSING APPLIED TO SACRAL AREA
--- NOTE | 2020-02-13 06:24 | NUR ---
DEMURRAGE MAN NOTIFIED FOR NEED OF COVID TEST.
--- NOTE | 2020-02-13 07:17 | NUR ---
REPORT GIVEN TO DAY SHIFT NURSE. ALERT AND RESTING IN BED. NO SIGNS IV INFILTRATION. BED LOCKED AND IN LOW POSITION. CALL LIGHT WITHIN REACH. BED ALARM ACTIVATED.
[2020-02-13] MEDS: INSULIN LISPRO 100 UNIT/1 ML 3ML VIAL SQ SCH ×3 (07:30→16:30)
[2020-02-13] MEDS ORDERED: APIXAB 2.5 MG TABLET PO SCH (09:00)
[2020-02-13] MEDS ORDERED: ASPIRIN 81 MG CHEW TAB PO SCH (09:00)
[2020-02-13] MEDS ORDERED: LOSARTAN POTASSIUM 25 MG TAB PO SCH (09:00)
[2020-02-13] MEDS ORDERED: AMLODIPINE BESYLATE 10 MG TAB PO SCH (09:00)
[2020-02-13] MEDS ORDERED: ZINC SULFATE 220 MG CAP PO SCH (09:00)
[2020-02-13] MEDS ORDERED: CLOPIDOGREL BISULFATE 75 MG TAB PO SCH (09:00)
[2020-02-13] MEDS ORDERED: SODIUM CHLORIDE 0.9% 250ML 250 ML ONE (09:01)
[2020-02-13] MEDS: DOCUSATE SODIUM 100 MG CAP PO SCH ×2 (09:23→16:52)
[2020-02-13] MEDS: FOLIC ACID 1 MG TAB PO SCH ×2 (09:24→16:52)
--- NOTE | 2020-02-13 09:52 | NUR ---
Patient was due to have 2nd unit of blood. Blood was started at 0910. Patient vitals WNL and have remained that way. No s/s of reaction. Patient resting in bed. All blood transfusion verification process were followed and documented. Will continue to monitor. Addendum: 02/13/20 at 1139 by Bonita Osei RN Patient has finished the 2nd unit of blood. H&H will be taken around 1330. Will continue to monitor.
--- NOTE | 2020-02-13 10:33 | Progress Note ---
DATE: SUBJECTIVE: This patient was sent to the hospital with low H and H. The patient is getting her first unit of PRBC today right now. Currently, no chest pain. No shortness of breath. Complains of some neck pain, status post AKA. OBJECTIVE: VITAL SIGNS: Temperature is 98.3, pulse of 81, respirations 16, blood pressure is 116/66, pulse oximetry 100%. HEENT: Normocephalic and atraumatic. Pupils reactive. CVS: S1 and S2 normal. Regular rate and rhythm. ABDOMEN: Nontender and nondistended. 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 LABORATORY VALUES: White count is 4.3, hemoglobin 6.5, hematocrit 20.4. Chemistry shows sodium of 137, potassium 3.8, BUN of 6 and creatinine 0.51. IMAGING STUDIES: None done. ASSESSMENT: Ms. Aniyah Hernandez with: 1. Atrial fibrillation. 2. Blood loss anemia. 3. Hypertension. 4. Hyperlipidemia. 5. Peripheral artery disease. 6. COVID-19 pneumonia. 7. Diabetes mellitus. PLAN: Continue current medication. The patient is to get the 2nd unit of PRBC, can be discharged if hemoglobin is above 8. Further recommendation per clinical course. We will continue to monitor the patient. MD ANIL Anderson/MODL /[id number]
--- NOTE | 2020-02-13 11:27 | NUR ---
CALL TO [facility]. SPOKE W PAT @ [phone] REGARDING ARRANGING TRANSPORT BACK TO THEIR FACILITY. STATES THEY CALL CALL W REPORT AND THEY WILL ARRANGE TRANSPORT FOR THE PT TO RETURN. STATES SHE WILL RETURN TO RM 210. CALL REPORT TO [phone] AND THEY WILL MAKE TRANSPORT ARRANGEMENTS. CALL TO GUILLERMO PENA; PT'S NURSE. STATES THE PT STILL RECEIVING 2ND UNIT OF PRBC. STATES SHE WILL DRAW LABS AROUND 2PM. INFORMED IF HER HGB IS >8, I WILL PLACE THE RTF ON THE FRONT OF THE PT'S CHART.
[2020-02-13 13:44] LABS: HEMATOCRIT 34.5 % (34.2-44.1); HEMOGLOBIN 11.4 g/dL (12.0-16.0)
--- NOTE | 2020-02-13 18:30 | NUR ---
Patient HGB came up to 11.4 from 6.5 and HCT to 34.5 from 20.4. ordered patient to be discharged if HGB above 8. Patient given discharge order from Dr. Valles. [facility] called to give report. Gave report to GUILLERMO Samaniego from [facility] at 1600. Requested both IVs be left in. They stated they would set up transportation. Transportation arrived at 1832. Patient stable, AOx3, no issues or complaints.
== END 2020-02-13 18:28 ==
LOC: IMCU 20:15 → INTOOBSV 20:15
PROVIDERS: ADMIT Internal Medicine; ATTEND Internal Medicine
DX: D50.0 Iron deficiency anemia secondary to blood loss (chronic) (principal); U07.1 COVID-19; J12.89 Other viral pneumonia; E11.9 Type 2 diabetes mellitus without complications; I48.91 Unspecified atrial fibrillation; I10 Essential (primary) hypertension; E78.5 Hyperlipidemia, unspecified; I73.9 Peripheral vascular disease, unspecified; Z89.611 Acquired absence of right leg above knee; Z79.82 Long term (current) use of aspirin; Z79.4 Long term (current) use of insulin
CPT/HCPCS: 36415 ×2; 36430; 80053; 82948 ×2; 85014; 85018; 85025; 86850; 86900; 86920; G0378 ×2; J0696; J7050 ×2; P9016; S0164

== ENCOUNTER 2020-10-28 14:44 | Emergency (ER) | payer MEDICARE ==
[~2020-10-28] VITALS: Ht 151.1 cm; Wt 38.6 kg
[~2020-10-28 14:44] MED LIST changes: +ASCORBIC ACID500 MG PO; +ASPIRIN EC81 MG PO; +CALCIUM VITAMIN D PO; +CEFTRIAXONE1 GM IV; +CLOPIDOGREL75 MG PO; +COMBIVENT RESPIM4 GM IH; +DOCUSATE SODIU100 MG PO; +ELIQUIS2.5 MG PO; +FOLIC ACID PO; +GABAPENTIN100 MG; +HUMALOG100 UNIT/1; +LIPITOR20 MG PO; +ONDANSETRON2 MG/1 ML PO; +POLYETHYLENE GL17 GM PO; +PROTONIX PO; +PSYLLIUM PO; +TRAMADOL HCL100 MG PO; +ZINC PO
[2020-10-28 16:16] LABS: BASOPHILS % 0.8 % (0.0-1.0); EOSINOPHILS # (AUTO) 0.3 (0.0-0.4); EOSINOPHILS % 5.5 % (0.0-6.0); HEMATOCRIT 30.7 % (34.2-44.1); HEMOGLOBIN 10.1 g/dL (12.0-16.0); LYMPHOCYTES # (AUTO) 1.5 (1.0-3.2); LYMPHOCYTES % 29.8 % (18.0-39.1); MEAN CORPUSCULAR HEMOGLOBIN 30.2 pg (28-32); MEAN CORPUSCULAR HGB CONC 32.9 g/dL (31-35); MEAN CORPUSCULAR VOLUME 91.9 fL (81-99); MONOCYTES # (AUTO) 0.5 (0.2-0.8); MONOCYTES % 9.6 % (4.4-11.3); NEUTROPHILS # (AUTO) 2.8 (2.1-6.9); NEUTROPHILS % 53.9 % (38.7-80.0); PLATELET COUNT 405 x10e3/uL (140-360); RED BLOOD COUNT 3.34 x10e6/uL (3.6-5.1); RED CELL DISTRIBUTION WIDTH 14.3 % (11.7-14.4)
[2020-10-28 16:25] LABS: INR 1.01; PROTHROMBIN TIME 13.9 seconds (11.9-14.5)
[2020-10-28] MEDS ORDERED: TRANEXAMIC ACID 1,000 MG/10 ML ML ONE (18:40)
== END 2020-10-28 20:19 | disposition home or self-care (01) ==
LOC: ER 15:41
DX: K06.8 Other specified disorders of gingiva and edentulous alveolar ridge (principal); E11.9 Type 2 diabetes mellitus without complications; E78.5 Hyperlipidemia, unspecified; D64.9 Anemia, unspecified
CPT/HCPCS: 36415; 85025; 85610; 99283

== ENCOUNTER 2022-02-07 11:46 | Emergency (ER) | payer MEDICARE ==
[~2022-02-07] VITALS: Ht 151.1 cm; Wt 38.6 kg
[2022-02-07] MEDS ORDERED: SODIUM CHLORIDE 0.9% 1000ML 500 ML IV ONE (12:45)
[2022-02-07 14:37] LABS: BASOPHILS # (AUTO) 0.1 (0.0-0.1); BASOPHILS % 0.5 % (0.0-1.0); EOSINOPHILS # (AUTO) 0.3 (0.0-0.4); EOSINOPHILS % 2.3 % (0.0-6.0); HEMATOCRIT 29.2 % (34.2-44.1); HEMOGLOBIN 9.4 g/dL (12.0-16.0); LYMPHOCYTES # (AUTO) 1.6 (1.0-3.2); LYMPHOCYTES % 15.1 % (18.0-39.1); MEAN CORPUSCULAR HEMOGLOBIN 28.4 pg (28-32); MEAN CORPUSCULAR HGB CONC 32.2 g/dL (31-35); MEAN CORPUSCULAR VOLUME 88.2 fL (81-99); MONOCYTES # (AUTO) 0.8 (0.2-0.8); NEUTROPHILS % 74.7 % (38.7-80.0); PLATELET COUNT 342 x10e3/uL (140-360); RED BLOOD COUNT 3.31 x10e6/uL (3.6-5.1); RED CELL DISTRIBUTION WIDTH 15.4 % (11.7-14.4)
[2022-02-07 15:00] LABS: ALBUMIN 3.3 g/dL (3.5-5.0); ALBUMIN/GLOBULIN RATIO 0.7 (0.8-2.0); CALCIUM 9.7 mg/dL (8.4-10.2); CREATININE, SERUM 0.64 mg/dL (0.57-1.11)
== END 2022-02-07 17:34 | disposition home or self-care (01) ==
LOC: ER 11:50
DX: N95.0 Postmenopausal bleeding (principal); R19.09 Other intra-abdominal and pelvic swelling, mass and lump; I10 Essential (primary) hypertension; E11.65 Type 2 diabetes mellitus with hyperglycemia; E78.5 Hyperlipidemia, unspecified; K21.9 Gastro-esophageal reflux disease without esophagitis; D64.9 Anemia, unspecified; Z95.1 Presence of aortocoronary bypass graft
CPT/HCPCS: 36415; 74177; 80053; 85025; 99284; J7030